=== PATIENT | female | born 1940 | race Caucasian/White ===

== ENCOUNTER 2017-05-14 11:21 | Inpatient (IN) | payer MEDICARE ==
[2017-05-14 12:00] LABS: #Lymphocytes 0.9 thou/uL (1.20-3.40); #Monocytes 0.5 thou/uL (0.11-0.59); #Neutrophils 10.9 thou/uL (1.40-6.50); %Basophils 0.3 % (0.0-1.0); %Eosinophils 0.1 % (0.0-10.0); %Lymphocytes 7.5 % (21.0-51.0); %Monocytes 3.6 % (0.0-10.0); Hematocrit 51.2 % (36.0-47.0); Mean Platelet Volume 9.3 fL (7.4-10.4); Red Blood Cell (RBC) Count 5.66 mill/uL (4.20-5.40); White Blood Cell (WBC) Count 12.4 thou/uL (4.8-10.8)
[2017-05-14 12:06] LABS: PTT 32.8 SEC (22.9-36.1)
[2017-05-14] MEDS ORDERED: Pantoprazole 40 MG VIAL ONE (12:10)
[2017-05-14] MEDS ORDERED: Ondansetron HCl/PF 4 MG/2 ML Vial ONE (12:10)
[2017-05-14 12:21] LABS: ALT (SGPT) 41 U/L (8-55); AST (SGOT) 37 U/L (5-34); Alkaline Phosphatase 126 U/L (40-150); Anion Gap 13 mmol/L (10-20); BUN (Urea Nitrogen) 14 mg/dL (9.8-20.1); Bilirubin, Total 0.5 mg/dL (0.2-1.2); Calc. Creatinine Clearance 0 mL/min (70-130); Calcium 10.5 mg/dL (7.8-10.44); Carbon Dioxide 26 mmol/L (23-31); Chloride 105 mmol/L (98-107); Estimated GFR-MDRD 79; Globulin 3.7 g/dL (2.4-3.5)
[2017-05-14] MEDS ORDERED: metroNIDAZOLE 500 MG/100 ML BAG ONE (13:48)
[2017-05-14] MEDS ORDERED: Iopamidol 370 76% 50 ML VIAL FS ONE (13:51)
[2017-05-14] MEDS ORDERED: Iopamidol 370 76% 100 ML VIAL ONE (13:51)
--- NOTE | 2017-05-14 14:01 | CT ---
CT ABDOMEN AND PELVIS WITH IV CONTRAST: DATE: 05/14/17. History Bloody diarrhea for a 12-hour period of time. Cramping abdominal pain. COMPARISON: None available. FINDINGS: There is a moderate-sized hiatal hernia. There is minimal bibasilar atelectasis. Post-cholecystectomy changes are noted. Calcified granuloma is seen in the spleen. The liver, pancreas, and bilateral adrenal glands as wel l as partially seen urinary bladder demonstrate a normal CT appearance. Subcentimeter too small to characterize hypodense lesions are seen in each kidney with minimal areas of scarring in each kidney. There is evidence of colonic diverticulosis. There is thickening involving the descending colon ext ending from the splenic flexure to the sigmoid colon. There is minimal pericolonic inflammatory dina nge seen. While multiple diverticula are seen along this course, this is a greater segment of invol vement than typically expected for diverticulitis and findings are more likely related to colitis se condary to infectious or inflammatory etiologies. No free fluid or fluid collection is seen in the abdomen or pelvis. There is no lymphadenopathy. Vascular calcification is seen in the abdominal aorta and iliac arteries. IMPRESSION: 1. Long segment of thickening involving the descending colon which involves the splenic flexure inc luding most distal aspect of the transverse colon and extends distally to the level of the sigmoid c olon. Multiple colonic diverticula are seen along this segment with pericolonic inflammatory change s. The degree of colonic involvement is more suggestive of colitis related to either an infectious or inflammatory etiology. Ischemic colitis is a possibility, but there does appear to be enhancemen t of the visualized APRIL. 2. Moderate-sized hiatal hernia. 3. Areas of cortical scarring and tiny subcentimeter too small to characterize hypodense lesions in each kidney. 4. Atherosclerotic vascular calcifications. 5. The above findings were discussed with Dr. Parra in the emergency department on 05/14/17 at 1335 hours. CODE CR POS: [facility]
[2017-05-14] MEDS ORDERED: Acetaminophen 325 MG TAB PO PRN (14:14)
[2017-05-14 15:17] VITALS: BMI 33.1
[2017-05-14 15:47] LABS: Hematocrit 46.2 % (36.0-47.0)
[2017-05-14] MEDS: Sodium Chloride 0.9% 1,000 ML IV SCH (16:20)
--- NOTE | 2017-05-14 16:20 | HP ---
PRIMARY CARE PHYSICIAN: Dr. Linwood Belle. CHIEF COMPLAINT: Rectal bleeding. HISTORY OF PRESENT ILLNESS: Ms. Gamble is a pleasant 76-year-old lady who was seen at [facility] on 05/14/2017. She reports that she had bidirectional scopes in the past, a few years ago as well as a few months a go for iron deficiency anemia. She was told that she has diverticular disease as well as hiatal her escobar. She denies eating out recently. Last night, she went to use the wash room and found that she had a black stool. She subsequently had more bowel movements, and she had bright red blood. She also rep orts abdominal discomfort over the right lower quadrant. She describes it as a cramping kind of sen sation, 10/10 at its worst, on and off, no known aggravating or relieving factors, not accompanied b y chest pain, nausea or vomiting. She came to the emergency room because of ongoing rectal bleeding . REVIEW OF SYSTEMS: The following complete review of systems was negative, unless otherwise mentione d in the HPI or below: CONSTITUTIONAL: Weight loss or gain, sense of well-being, ability to conduct usual activities, exer cise tolerance. SKIN/BREAST: Rash, itching, changes in hair growth or loss, nail changes, breast lumps, tenderness, swelling, nipple discharge. EYES: Vision, double vision, tearing, blind spots, pain. ENT/MOUTH: Headaches (location, time of onset, duration, precipitating factors), vertigo, lighthead edness, injury. Vision, double vision, tearing, blind spots, pain, nose bleeding, colds, obstruction , discharge, dental difficulties, gingival bleeding, dentures, neck stiffness, pain, tenderness, mas ses in thyroid or other areas. CARDIOVASCULAR: Precordial pain, substernal distress, palpitations, syncope, dyspnea on exertion, o rthopnea, nocturnal paroxysmal dyspnea, edema, cyanosis, hypertension, heart murmurs, varicosities, phlebitis, claudication. RESPIRATORY: Pain, shortness of breath, wheezing, stridor, cough, hemoptysis, fever or night sweats GASTROINTESTINAL: Poor appetite, dysphagia, indigestion, abdominal pain, heartburn, eructation, leonardo sea, vomiting, hematemesis, jaundice, constipation, or diarrhea, abnormal stools (humphrey-colored, bebo y, bloody, greasy, foul smelling), flatulence, hemorrhoids, recent changes in bowel habits. GENITOURINARY: Urgency, frequency, dysuria, nocturia, hematuria, polyuria, oliguria, unusual (or ch dilan in) color of urine, stones, hesitancy, change in size of stream, dribbling, acute retention or incontinence, libido, potency. MUSCULOSKELETAL: Pain, swelling, redness or heat of muscles or joints, limitation, of motion, muscu lar weakness, atrophy, cramps. NEUROLOGIC/PSYCHIATRIC: Convulsions, paralyses, tremor, incoordination, paresthesias, difficulties with memory of speech, sensory or motor disturbances, or muscular coordination (ataxia, tremor), emo tional problems, anxiety, depression, previous psychiatric care, unusual perceptions, hallucinations . ALLERGY/IMMUNOLOGIC: Skin rash, anemia, bleeding tendency, polydipsia, polyuria, intolerance to hea t or cold. PAST MEDICAL HISTORY: Significant for anemia and diverticulitis. PAST SURGICAL HISTORY: Significant for cholecystectomy and hysterectomy. SOCIAL HISTORY: The patient denies tobacco use, alcohol use or recreational drug use. CODE STATUS: I discussed Ms. Gamble's code status. She is FULL CODE. FAMILY HISTORY: Significant for myocardial infarction in 2 of her siblings. ALLERGIES: CODEINE. CURRENT MEDICATIONS: Tylenol p.r.n. PHYSICAL EXAMINATION: GENERAL: Ms. Gamble is awake and alert, not in acute distress. VITAL SIGNS: She is afebrile. Blood pressure is 129/70. Pulse is 79. She is breathing at rate of 18 and saturating 97% on room air. EYES: No scleral icterus. No conjunctival pallor. ENT: Moist mucosal membranes, no oropharyngeal erythema or exudates. NECK: Supple, nontender, normal range of movement, trachea is midline. RESPIRATORY: Accessory muscles of breathing are not active. Chest wall movements are symmetric elaine aterally. LUNGS: Clear to auscultation without wheeze, rhonchi or crepitations. CARDIOVASCULAR: S1 and S2 are heard, regular. LUNGS: Peripheral pulses palpable. No carotid bruit, no pericardial rub. ABDOMEN: Soft, mild right lower quadrant tenderness, no guarding or rigidity, bowel sounds heard, n o hepatomegaly, no splenomegaly. NEUROLOGIC: Cranial nerves II-XII are intact. Deep tendon reflexes are 2+. MUSCULOSKELETAL: Power is 5/5 in all 4 extremities. Normal range of movement at all major extremit y joints. SKIN: No rashes or subcutaneous nodules. LYMPHATIC: No cervical lymphadenopathy. PSYCHIATRIC: Normal mood, normal affect, patient is oriented to person, place and time. LABORATORY DATA: Ms. Gamble's labs and investigations were reviewed. She had a CT scan of the abdo men and pelvis, which showed moderate sized hiatal hernia, minimal basilar atelectases, postcholecys tectomy changes. She also has a long segment of thickening involving the descending colon with mult iple colonic diverticula and pericolonic inflammatory changes. She also has tiny too small to emil cterize hypodense lesions in each kidney and atherosclerotic vascular calcifications. Laboratory in vestigations show leukocytosis with 12,400 white cells, of which 88.5% are neutrophils, elevated hem oglobin of 16.3, last known hemoglobin 8.8 on 10/21/2012, normal platelet count, INR 1.0, normal rosita ctrolytes, normal blood urea nitrogen, normal creatinine, elevated calcium of 10.5, normal total elaine irubin, elevated AST of 37, normal ALT, normal alkaline phosphatase and normal albumin. ASSESSMENT AND PLAN: Ms. Gamble is a pleasant 76-year-old lady, who was seen at [facility]. Her problem list includes: 1. Gastrointestinal bleed: She is presenting with features of both upper and lower GI bleed. She will be admitted to the hospital for further monitoring. Her hemoglobin will be rechecked. We will start her on PPI drip. Gastroenterology service is being consulted. We will start clear fluid t now and keep patient n.p.o. after midnight for possible scope studies. 2. Abdominal pain: This appears to have improved. I will start p.r.n. acetaminophen. 3. History of anemia: Patient has a history of anemia of iron deficiency. Her hemoglobin is actua lly high today, it appears she may be hemoconcentrated. I will recheck hemoglobin level. 4. Leukocytosis: Given her diarrhea, concern for infectious etiology. We will check stool studies to rule out infection and Clostridium difficile colitis. She has already been started on empiric c iprofloxacin and metronidazole, we will continue the same for now. 5. Hypercalcemia: Mild, we will recheck. 6. Elevated AST: Etiology is unclear. We will recheck LFTs, will also check a CK level. Many thanks for allowing me to participate in your patient's care. Please feel free to contact me w ith any questions or concerns. LEVEL OF RISK: Moderate. LEVEL OF COMPLEXITY: Moderate.
[2017-05-14] MEDS: Pantoprazole 80 MG, Admixture Fee 1 EACH in Sodium Chloride 0.9% 100 ML IVP SCH (18:29)
[2017-05-14] MEDS: metroNIDAZOLE 500 MG in Premix Bag 1 BAG IVPB SCH (22:32)
[2017-05-15 00:08] LABS: Hematocrit 44.1 % (36.0-47.0)
[2017-05-15 04:57] LABS: #Lymphocytes 1.2 thou/uL (1.20-3.40); #Monocytes 0.9 thou/uL (0.11-0.59); #Neutrophils 10.9 thou/uL (1.40-6.50); %Basophils 0.2 % (0.0-1.0); %Eosinophils 0.3 % (0.0-10.0); %Lymphocytes 9.2 % (21.0-51.0); %Monocytes 6.9 % (0.0-10.0); Hematocrit 45.1 % (36.0-47.0); Mean Platelet Volume 9.8 fL (7.4-10.4); Red Blood Cell (RBC) Count 4.99 mill/uL (4.20-5.40); White Blood Cell (WBC) Count 13.1 thou/uL (4.8-10.8)
[2017-05-15 05:12] LABS: Anion Gap 11 mmol/L (10-20); BUN (Urea Nitrogen) 9 mg/dL (9.8-20.1); Calc. Creatinine Clearance 101 mL/min (70-130); Calcium 9.2 mg/dL (7.8-10.44); Carbon Dioxide 24 mmol/L (23-31); Chloride 106 mmol/L (98-107); Estimated GFR-MDRD 89
[2017-05-15] MEDS: Pantoprazole 80 MG, Admixture Fee 1 EACH in Sodium Chloride 0.9% 100 ML IVP SCH ×2 (06:20→23:22)
[2017-05-15] MEDS: metroNIDAZOLE 500 MG in Premix Bag 1 BAG IVPB SCH ×3 (06:32→21:39)
[2017-05-15] MEDS: Sodium Chloride 0.9% 1,000 ML IV SCH ×2 (08:16→21:43)
--- NOTE | 2017-05-15 09:10 | CON ---
DATE OF CONSULTATION: 05/14/2017 REFERRING PHYSICIAN: Dr. Clement Mackey, [facility]. REASON FOR CONSULTATION: GI bleeding. HISTORY OF PRESENT ILLNESS: Ms. Cristal Gamble is a very pleasant 76-year-old female seen in the ER today because of abdominal cramping and hematochezia. Apparently, the symptoms started at 1 1:00 p.m. last night and the pain was cramping more over the right lower quadrant. The pain was act ually severe as per the patient. She feels nausea, but no vomiting. She started passing dark blood that subsequently turned to bright red blood per rectum. Apparently, she has 5 or 6 bloody stools. She came to the ER because of the above reason. The patient has no history of fever. There is no history of recent antibiotic intake. There is no recent travel outside the country. The patient h ad no similar symptoms in the past. The patient has history of anemia since 2012. She was found to be some anemia with a low blood count of 6.1 in 2012. She was hospitalized at the time of blood tr ansfusion. She has seen Dr. Donell Reese at that time. She had a colonoscopy and EGD by Dr. Reese. A s per the operative report, she had esophageal erosions and esophagitis and also hiatus hernia. The colonoscopy showed left-sided diverticulosis and also a small sessile sigmoid polyp. The patient w as placed on iron supplement. She did very well. She does take omeprazole for acid reflux. The zoë conway again developed anemia few months ago and blood count dropped to 8. She has no history of any hematochezia or melena. She has seen Dr. Reese earlier this year and had an EGD done. She was told to have esophageal hiatus hernia. She also had some of the tests done which she really not very cl ear about what the tests are. The patient came to the ER today. Her hemoglobin was surprisingly ve ry high. The hemoglobin in the ER was 16.3, hematocrit 51.2. A repeat done at 4:00 today showed he moglobin dropping to 14.9, hematocrit 46.2. She has no more bloody stools since admitted in the [facility] or. The patient's bowel movements are fairly regular. Another relevant history that she had a caps ule study in 2012 because of anemia and the capsule study also was found to be negative. She has no other relevant symptoms. ALLERGIES: None. SOCIAL HISTORY: The patient is . She does not smoke or drink alcohol. MEDICAL ILLNESSES: 1. Recurrent anemia. 2. Hiatus hernia. 3. Esophagitis. 4. Diverticular disease. 5. Colon polyp. 6. Status post hysterectomy. 7. Status post cholecystectomy. 8. She has seen Dr. Cristina in the past and had some procedures for her varicose veins. FAMILY HISTORY: Mother had polycythemia vera rubra and turning into leukemia subsequently. MEDICATIONS: List reviewed. 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 Respiratory system: No history of chronic cough, hemoptysis, dyspnea. Cardiovascular system: No c hest pain, no palpitation, no exertional dyspnea, orthopnea or PND. Gastrointestinal: As in histor y of present illness. Genitourinary: No dysuria, hematuria or frequency of urination. Musculoskel etal: Not known. Endocrine: Not known. Hematological: Not known. Neuro/Psychiatric: Not known . PHYSICAL EXAMINATION: GENERAL: Reveals a very pleasant female. She is appears very comfortable. She has inter mittent crampy pain; at times the pain is severe. VITAL SIGNS: Stable, afebrile. Pulse is 76, blood pressure 152/70. HEENT: Conjunctivae clear. NECK: Supple. No adenitis or thyromegaly noted. CARDIOVASCULAR SYSTEM: First and second heart sounds normal. LUNGS: Clear to auscultation. ABDOMEN: Soft to palpate. Abdomen is nondistended. Although, she complains of pain, palpating the abdominal various quadrants does not really show any . There is no rebound or guarding. [place] el sounds are normal. EXTREMITIES: No edema. LABORATORY DATA: Shows CBC: WBC 12,400, hemoglobin 16.2 dropping to 14.9, hematocrit 51.8 dropping to 46.2, MCV 90.5, platelet count 267,000, polymorphs 88, lymphocytes 7. Serum chemistries and ser um lytes are normal. BUN is 14, creatinine is 0.72, glucose 123, calcium 10.5, bilirubin 0.5, AST 3 7, ALT 41, alkaline phosphatase 126. Abdominal CAT scan shows hiatus hernia, colitis involving the sigmoid colon and transverse colon. She also has had atherosclerotic vascular calcification. CLINICAL IMPRESSION: 1. A 76-year-old female with abdominal cramping, hematochezia. The patient most likely h as ischemic colitis. I do not feel that she has an infectious colitis. The clinical picture is yvonne y suggestive of ischemic colitis. 2. History of recurrent anemia. Blood count is stable at the present time. 3. Hiatus hernia. 4. Erosive esophagitis. 5. Colon polyp. 6. Sigmoid diverticulosis. RECOMMENDATIONS: 1. Clear liquid diet. 2. Continue antibiotics. 3. Follow up H and H. I really see no reason in doing colonoscopy at the present time as she had a colonoscopy four years ago and my feeling is that she has ischemic colitis. Doing colonoscopy and documentation of ischemic colitis is not going to make the treatment any different. However, if her blood count drops down or she continues to bleed, may consider a colonoscopy at that time.
[2017-05-15] MEDS ORDERED: Morphine 2 MG/ML SYRINGE SLOW IVP PRN (09:15)
[2017-05-15] MEDS ORDERED: Dicyclomine 10 MG CAP PO PRN (09:15)
--- NOTE | 2017-05-15 11:43 | PDOC.PN ---
- Subjective Encounter Start Date: 05/15/17 Encounter Start Time: 08:20 Pt seen for followup re: colitis. Denies chest pain. Still has abdominal pain. Still has bloody stools. No nausea, vomiting. - Objective MAR Reviewed: Yes Vital Signs & Weight: Vital Signs (12 hours) Temp Pulse Resp BP Pulse Ox 05/15/17 11:13 98.0 F 76 18 152/77 H 99 Result Diagrams: 05/15/17 04:06 05/15/17 04:06 EKG Reviewed by me: Yes (Tele: NSR) Phys Exam - Physical Examination Constitutional: NAD HEENT: moist MMs, sclera anicteric, oral pharynx no lesions Neck: supple Respiratory: no wheezing, no rales, no rhonchi, clear to auscultation bilateral Cardiovascular: RRR, no rub Gastrointestinal: soft, no distention, positive bowel sounds Mild RLQ tenderness, no guarding or rigidity Musculoskeletal: pulses present Neurological: moves all 4 limbs Lymphatic: no nodes Psychiatric: normal affect, A&O x 3 Skin: no rash, normal turgor, cap refill <2 seconds Dx/Plan (1) Colitis Code(s): K52.9 - NONINFECTIVE GASTROENTERITIS AND COLITIS, UNSPECIFIED Status : Acute (2) Abdominal pain Code(s): R10.9 - UNSPECIFIED ABDOMINAL PAIN Status: Acute (3) Bloody diarrhea Code(s): R19.7 - DIARRHEA, UNSPECIFIED Status: Acute (4) Anemia Code(s): D64.9 - ANEMIA, UNSPECIFIED Status: Chronic (5) Hypocalcemia Code(s): E83.51 - HYPOCALCEMIA Status: Resolved - Plan continue antibiotics, out of bed/ambulate, DVT proph w/SCDs * . Ischemic vs. infectious colitis, continue cipro, flagyl. Start clear liquid diet, advance as tolerated. Hgb initially dropped, now stable. Given ongoing abdo pain, ongoing bleeding and colitis, estimated length of stay is greater than two nights. Will change pt's status to in-patient. Review of Systems - Review of Systems Constitutional: negative: Fever, Chills, Sweats, Weakness, Malaise Respiratory: negative: Cough, Dry, Shortness of Breath, Hemoptysis, SOB with Excertion, Pleuritic Pain, Sputum, Wheezing Cardiovascular: negative: Chest Pain, Palpitations, Orthopnea, Paroxysmal Noc. Dyspnea, Edema, Light Headedness Gastrointestinal: negative: Nausea, Vomiting, Abdominal Pain, Diarrhea, Constipation, Melena, Hematochezia Genitourinary: negative: Dysuria, Frequency, Incontinence, Hematuria, Retention - Medications/Allergies Allergies/Adverse Reactions: Allergies Allergy/AdvReac Type Severity Reaction Status Date / Time codeine Allergy Severe Verified 05/14/17 16:21 Medications: Current Medications Acetaminophen (Tylenol) 650 mg PO Q4H PRN PRN Reason: Headache/Fever or Pain Last Admin: 05/14/17 18:25 Dose: 650 mg Dicyclomine HCl (Bentyl) 10 mg PO QID PRN PRN Reason: abdominal pain Last Admin: 05/15/17 10:26 Dose: 10 mg Sodium Chloride (Normal Saline 0.9%) 1,000 mls @ 70 mls/hr IV .[id number] ANDREA Last Admin: 05/15/17 08:16 Dose: Not Given Pantoprazole Sodium 80 mg/Miscellaneous Medication 1 each/ Sodium Chloride 100 mls @ 10 mls/hr IVP INF [facility] Last Admin: 05/15/17 06:20 Dose: 100 mls Ciprofloxacin/Dextrose 400 mg/ (Device) 200 mls @ 200 mls/hr IVPB 0400,1600 ANDREA Last Admin: 05/15/17 04:13 Dose: 200 mls Metronidazole 500 mg/ Device 100 mls @ 100 mls/hr IVPB Q8HR ANDREA Last Admin: 05/15/17 06:32 Dose: 100 mls Morphine Sulfate (Morphine Sulfate) 2 mg SLOW IVP Q4H PRN PRN Reason: Pain
[2017-05-15 12:45] LABS: ALT (SGPT) 35 U/L (8-55); AST (SGOT) 25 U/L (5-34); Alkaline Phosphatase 102 U/L (40-150); Bilirubin, Direct 0.3 mg/dL (0.1-0.3); Bilirubin, Total 0.7 mg/dL (0.2-1.2); Protein, Total 6.1 g/dL (6.0-8.3)
--- NOTE | 2017-05-15 17:04 | PRG ---
HOSPITAL VISIT NOTE DATE OF SERVICE: 05/15/2017 SUBJECTIVE: This is a 76-year-old female admitted with abdominal cramping and hematochezi a. The CAT scan shows findings of colitis. The patient's symptoms are very suggestive of ischemic colitis. The patient is still having abdominal cramping off and on. She had no nausea or vomiting, no fever. She has had 3 stools today. The first 2 stools had some blood in the stool, but the las t one did not have any blood in the stool. Her blood count did drop down slowly from 16.3 to 14.2. One of the last hemoglobin is stable at 14.2. OBJECTIVE: GENERAL: Appears comfortable. VITAL SIGNS: She is afebrile. Pulse is 76 and blood pressure 152/77. CARDIOVASCULAR: First and second heart sounds are normal. LUNGS: Clear to auscultation. ABDOMEN: Soft to palpate. No organomegaly. Abdomen is mildly tender across the lower abdomen. Ov erall, the exam is very benign. LABORATORY DATA: The most recent laboratory data; hemoglobin 14.2 and hematocrit 45.1. RECOMMENDATIONS: 1. Continue clear liquid diet and advance diet to full liquid diet tomorrow. 2. Continue antibiotics.
[2017-05-16] MEDS: Sodium Chloride 0.9% 1,000 ML IV SCH ×3 (00:32→19:55)
[2017-05-16] MEDS ORDERED: Ondansetron HCl/PF 4 MG/2 ML Vial IVP PRN (04:13)
[2017-05-16] MEDS ORDERED: Ondansetron HCl/PF 4 MG/2 ML Vial IVP SCH (04:15)
[2017-05-16 06:15] LABS: #Eosinphils 0.1 thou/uL (0.0-0.7); #Lymphocytes 1.8 thou/uL (1.20-3.40); #Neutrophils 8.7 thou/uL (1.40-6.50); %Basophils 0.4 % (0.0-1.0); %Eosinophils 1.2 % (0.0-10.0); %Lymphocytes 15.4 % (21.0-51.0); %Monocytes 8.8 % (0.0-10.0); Hematocrit 38.4 % (36.0-47.0); Mean Platelet Volume 9.4 fL (7.4-10.4); Red Blood Cell (RBC) Count 4.24 mill/uL (4.20-5.40); White Blood Cell (WBC) Count 11.7 thou/uL (4.8-10.8)
[2017-05-16] MEDS: metroNIDAZOLE 500 MG in Premix Bag 1 BAG IVPB SCH (06:22)
[2017-05-16 06:30] LABS: Anion Gap 8 mmol/L (10-20); BUN (Urea Nitrogen) 6 mg/dL (9.8-20.1); Calc. Creatinine Clearance 102 mL/min (70-130); Calcium 8.6 mg/dL (7.8-10.44); Carbon Dioxide 26 mmol/L (23-31); Chloride 107 mmol/L (98-107); Estimated GFR-MDRD 90
--- NOTE | 2017-05-16 11:32 | PDOC.PN ---
- Subjective Encounter Start Date: 05/16/17 Encounter Start Time: 10:00 Pt seen for followup re: colitis. Denies chest pain, vomiting or fevers. No blood in stool. Abdo pain better. - Objective MAR Reviewed: Yes Vital Signs & Weight: Vital Signs (12 hours) Temp Pulse Resp BP Pulse Ox 05/16/17 08:13 98.2 F 75 16 116/73 95 05/16/17 08:00 98.2 F 75 16 97 05/16/17 05:37 98.9 F 73 16 109/67 95 05/16/17 00:29 99.3 F 76 16 106/64 91 L I&O: 05/15/17 05/16/17 05/17/17 06:59 06:59 06:59 Intake Total 1960 360 Balance 1960 360 Result Diagrams: 05/16/17 06:05 05/16/17 06:05 Phys Exam - Physical Examination Constitutional: NAD HEENT: moist MMs Neck: supple Respiratory: clear to auscultation bilateral Cardiovascular: RRR, no rub Gastrointestinal: soft, positive bowel sounds Mild RLQ tenderness Musculoskeletal: pulses present Neurological: moves all 4 limbs Psychiatric: normal affect, A&O x 3 Skin: no rash Dx/Plan (1) Colitis Code(s): K52.9 - NONINFECTIVE GASTROENTERITIS AND COLITIS, UNSPECIFIED Status : Acute (2) Abdominal pain Code(s): R10.9 - UNSPECIFIED ABDOMINAL PAIN Status: Acute (3) Bloody diarrhea Code(s): R19.7 - DIARRHEA, UNSPECIFIED Status: Acute (4) Anemia Code(s): D64.9 - ANEMIA, UNSPECIFIED Status: Chronic (5) Hypocalcemia Code(s): E83.51 - HYPOCALCEMIA Status: Resolved - Plan * . Continue antibiotics. Advance diet as tolerated. Likely home 1-2 days. Review of Systems - Review of Systems Constitutional: negative: Fever, Chills, Sweats, Weakness, Malaise Cardiovascular: negative: Chest Pain, Palpitations, Orthopnea, Paroxysmal Noc. Dyspnea, Edema, Light Headedness Gastrointestinal: Abdominal Pain. negative: Nausea, Vomiting, Diarrhea, Constipation, Melena, Hematochezia - Medications/Allergies Allergies/Adverse Reactions: Allergies Allergy/AdvReac Type Severity Reaction Status Date / Time codeine Allergy Severe Verified 05/14/17 16:21 Medications: Current Medications Acetaminophen (Tylenol) 650 mg PO Q4H PRN PRN Reason: Headache/Fever or Pain Last Admin: 05/14/17 18:25 Dose: 650 mg Dicyclomine HCl (Bentyl) 10 mg PO QID PRN PRN Reason: abdominal pain Last Admin: 05/15/17 10:26 Dose: 10 mg Sodium Chloride (Normal Saline 0.9%) 1,000 mls @ 70 mls/hr IV .[id number] [facility] Last Admin: 05/16/17 00:32 Dose: 1,000 mls Pantoprazole Sodium 80 mg/Miscellaneous Medication 1 each/ Sodium Chloride 100 mls @ 10 mls/hr IVP INF [facility] Last Admin: 05/15/17 23:22 Dose: 100 mls Ciprofloxacin/Dextrose 400 mg/ (Device) 200 mls @ 200 mls/hr IVPB 0400,1600 [facility] Last Admin: 05/16/17 03:58 Dose: 200 mls Metronidazole 500 mg/ Device 100 mls @ 100 mls/hr IVPB Q8HR [facility] Last Admin: 05/16/17 06:22 Dose: 100 mls Morphine Sulfate (Morphine Sulfate) 2 mg SLOW IVP Q4H PRN PRN Reason: Pain Ondansetron HCl (Zofran) 4 mg IVP Q4H PRN PRN Reason: Nausea/Vomiting
[2017-05-16] MEDS ORDERED: traMADol HCl 50 MG TAB PO PRN (11:34)
[2017-05-16] MEDS: metroNIDAZOLE 500 MG TAB PO SCH ×2 (14:31→19:50)
[2017-05-16] MEDS: Pantoprazole 80 MG, Admixture Fee 1 EACH in Sodium Chloride 0.9% 100 ML IVP SCH (14:31)
--- NOTE | 2017-05-16 18:21 | PRG ---
DATE OF SERVICE: 05/16/2017 HISTORY OF PRESENT ILLNESS: This is a 76-year-old female admitted to the hospital with ab dominal pain and hematochezia. An abdominal CAT scan done, showed evidence of colitis. It appears that she has most likely ischemic colitis. The patient has had a colonoscopy not too long ago and i t was felt she does not need repeat colonoscopy. She was on clear liquid diet yesterday and she is actually doing better. Abdominal pain is getting better and better. She appears comfortable. She has had no hematochezia anymore. PHYSICAL EXAMINATION: GENERAL: Appears comfortable. VITAL SIGNS: Stable. Pulse is 75, blood pressure 116/73. HEENT: Conjunctivae clear. CARDIOVASCULAR SYSTEM: First and second heart sounds normal. LUNGS: Clear to auscultation. ABDOMEN: Soft to palpate. Abdomen is mildly tender across the lower abdomen. There is no rebound or guarding. EXTREMITIES: Reveal no edema. LABORATORY DATA: From today WBC 11,700, hemoglobin 12.4, hematocrit 38.4. Chemistry panel: Sodium 138, potassium 3.4, chloride 107, bicarbonate 26, BUN is 6, creatinine 0.64, glucose 129. CLINICAL IMPRESSION: Resolving ischemic colitis. Her blood count is stable. RECOMMENDATIONS: Advance diet to full liquid diet and if she tolerates well, advance to a mechanica l soft diet later on. If she does well, consider discharge tomorrow.
[2017-05-16] MEDS: Ciprofloxacin 500 MG TAB PO SCH (19:50)
[2017-05-17] MEDS: Ciprofloxacin 500 MG TAB PO SCH (05:26)
[2017-05-17 05:58] LABS: #Basophils 0.1 thou/uL (0.0-0.2); #Eosinphils 0.3 thou/uL (0.0-0.7); #Lymphocytes 2.6 thou/uL (1.20-3.40); #Monocytes 0.7 thou/uL (0.11-0.59); #Neutrophils 6.1 thou/uL (1.40-6.50); %Basophils 0.9 % (0.0-1.0); %Eosinophils 3.1 % (0.0-10.0); %Lymphocytes 26.4 % (21.0-51.0); %Monocytes 6.7 % (0.0-10.0); Hematocrit 40.3 % (36.0-47.0); Mean Platelet Volume 9.3 fL (7.4-10.4); Red Blood Cell (RBC) Count 4.41 mill/uL (4.20-5.40); White Blood Cell (WBC) Count 9.8 thou/uL (4.8-10.8)
[2017-05-17 06:26] LABS: Anion Gap 10 mmol/L (10-20); BUN (Urea Nitrogen) 6 mg/dL (9.8-20.1); Calc. Creatinine Clearance 102 mL/min (70-130); Calcium 8.8 mg/dL (7.8-10.44); Carbon Dioxide 24 mmol/L (23-31); Chloride 109 mmol/L (98-107); Estimated GFR-MDRD 90
[2017-05-17] MEDS: metroNIDAZOLE 500 MG TAB PO SCH (08:01)
[2017-05-17 13:29] VITALS: BP 134/78; TEMP 97.6
--- NOTE | 2017-05-17 20:14 | PRG ---
DATE OF SERVICE: 05/17/2017 HOSPITALIST NOTE HISTORY OF PRESENT ILLNESS: This is a 76-year-old female admitted with abdominal cramping , hematochezia, and diarrhea. The CAT scan showed evidence of colitis. It was felt that patient jeff reno has ischemic colitis. She was on a clear liquid diet until yesterday and diet was advanced to full liquid diet. This morning, she had a regular diet. She has no abdominal pain. No hematochezi a. Overall, she is feeling better. PHYSICAL EXAMINATION: VITAL SIGNS: Afebrile, pulse 56, blood pressure 134/78. CARDIOVASCULAR SYSTEM: Within normal limits. LUNGS: Within normal limits. ABDOMEN: Soft to palpate. Abdomen is nontender. No organomegaly or masses. RECOMMENDATION: The patient can be discharged home on p.o. antibiotics for the next 3 days. She wi ll return to see Dr. Belle for a followup visit.
--- NOTE | 2017-05-18 00:29 | DIS ---
DATE OF ADMISSION: 05/14/2017 DATE OF DISCHARGE: 05/17/2017 PRIMARY CARE PHYSICIAN: Dr. Linwood Belle. DISCHARGE DIAGNOSIS: Colitis, ischemic versus infectious. CONDITION OF PATIENT AT THE TIME OF DISCHARGE: Stable. I assessed Ms. aGmble on the day of dischar ge. She denies any chest pain or shortness of breath. She denies any bloody diarrhea. Vital signs are stable. S1 and S2 are heard, regular. Lungs are clear to auscultation bilaterally. CONSULTATION DURING THIS HOSPITALIZATION: Gastroenterology, Dr. Billingsley. DISCHARGE MEDICATIONS: Ciprofloxacin 500 mg 2 times a day for 4 more days, metronidazole 500 mg 3 t imes a day for 4 more days. HOSPITAL COURSE: Ms. Gamble is a pleasant 76-year-old lady, who was admitted to [facility] on 05/14/2017, for bloody diarrhea. Stool Clostridium difficile screen was negative. Stool cultures were negative. Stool occult blood was positive. She was seen by Gastroenterology Service. She was also started on antibiotics at the time of admission for possible infectious colit is. Gastroenterology Service impression was that she had ischemic colitis. She improved clinically with supportive measures. She is being discharged home in a stable condition to finish one week co urse of antibiotics, total. She had a CT scan at the time of admission, which was suggestive of colitis. She also had tiny subc entimeter too small to characterize hypodense lesions in each kidney. She is advised to follow up w ith her primary care physician for any possible workup if needed. Many thanks for allowing me to participate in your patient's care. Please feel free to contact me w ith any questions or concerns. DISCHARGE DESTINATION: Home. TOTAL AMOUNT OF TIME SPENT COORDINATING THIS DISCHARGE: Thirty-eight minutes.
== END 2017-05-17 16:54 | disposition home or self-care (01) | DRG 394 ==
LOC: ERS 11:21 → 2SW 13:56 → OBSVTOIN 05-15 09:06 → T4-B 05-15 11:09
PROVIDERS: ADMIT Internal Medicine; ATTEND Internal Medicine
DX: K55.9 Vascular disorder of intestine, unspecified (principal); K22.10 Ulcer of esophagus without bleeding; D64.9 Anemia, unspecified; E83.52 Hypercalcemia; K57.30 Diverticulosis of large intestine without perforation or abscess without bleeding; K63.5 Polyp of colon; I10 Essential (primary) hypertension; K44.9 Diaphragmatic hernia without obstruction or gangrene; D72.829 Elevated white blood cell count, unspecified; Z88.5 Allergy status to narcotic agent; Z80.6 Family history of leukemia
CPT/HCPCS: 36415; 74177; 80048; 80053; 80076; 82274; 83630; 85025; 85610; 85730; 86850; 86900; 86901; 87015; 87045; 87046; 87324; 87328; 87329; 87449; 87899; 96365; 96375; C9113; J0744; J2405; J7050

== ENCOUNTER 2017-08-04 13:12 | Emergency (ER) | payer MEDICARE ==
[2017-08-04] MEDS ORDERED: Dexamethasone 10 MG/ML VIAL ONE (14:09)
[2017-08-04] MEDS ORDERED: Ondansetron HCl/PF 4 MG/2 ML Vial ONE (14:15)
[2017-08-04 14:38] LABS: #Lymphocytes 1.3 thou/uL (1.20-3.40); #Monocytes 0.6 thou/uL (0.11-0.59); #Neutrophils 6.6 thou/uL (1.40-6.50); %Eosinophils 0.2 % (0.0-10.0); %Lymphocytes 15.2 % (21.0-51.0); %Monocytes 7.4 % (0.0-10.0); %Neutrophils 77.2 % (42.0-75.0); Hemoglobin 13.8 g/dL (12.0-16.0); Mean Corpuscular HGB CONC 32.1 g/dL (32.0-36.0); Mean Corpuscular Hemoglobin 29.4 pg (27.0-31.0); Mean Corpuscular Volume 91.7 fl (81.0-99.0); Mean Platelet Volume 9.7 fL (7.4-10.4); Platelet Count 190 thou/uL (130-400); RBC Distribution Width 12.1 % (11.5-14.5); Red Blood Cell (RBC) Count 4.68 mill/uL (4.20-5.40); White Blood Cell (WBC) Count 8.6 thou/uL (4.8-10.8)
[2017-08-04 15:00] LABS: ALT (SGPT) 19 U/L (8-55); AST (SGOT) 12 U/L (5-34); Albumin 3.6 g/dL (3.4-4.8); Alkaline Phosphatase 119 U/L (40-150); Anion Gap 14 mmol/L (10-20); BUN (Urea Nitrogen) 11 mg/dL (9.8-20.1); Bilirubin, Total 0.5 mg/dL (0.2-1.2); Calc. Creatinine Clearance 0 mL/min (70-130); Calcium 9.7 mg/dL (7.8-10.44); Carbon Dioxide 24 mmol/L (23-31); Chloride 104 mmol/L (98-107); Estimated GFR-MDRD 81; Globulin 3.2 g/dL (2.4-3.5); Glucose 127 mg/dL (83-110); Lipase 7 U/L (8-78); Potassium 4.6 mmol/L (3.5-5.1); Protein, Total 6.8 g/dL (6.0-8.3); Sodium 137 mmol/L (136-145)
--- NOTE | 2017-08-04 15:00 | CT ---
CT HEAD NONCONTRAST: HISTORY: Headache. FINDINGS: No comparison. There is no evidence of acute intracranial hemorrhage or infarct. Choroid is favored to account for the hyperdensity at the medial aspect of the right temporal lobe inferiorly. There i s no mass effect or shift of midline structures. Mild chronic ischemic changes are apparent within t he periventricular white matter of each cerebral hemisphere. A small amount of fluid layers within t he ethmoid air cells and maxillary sinuses. IMPRESSION: 1. No acute intracranial abnormalities are demonstrated on noncontrast CT head. 2. Fluid within the paranasal sinuses could reflect sinusitis and the cause of the headache. POS: [facility]
--- NOTE | 2017-08-04 15:02 | RAD ---
CHEST 1 VIEW: HISTORY: Cough. Chest pain. FINDINGS: No comparison. The cardiac silhouette is magnified by projection. Pulmonary vasculature is upper li mits of normal. Calcified granulomata are consistent with healed granulomatous disease. Gas contain ing structure correlates with hiatal hernia seen on recent CT. There is no lobar consolidation or ev idence of pneumothorax. IMPRESSION: 1. Borderline pulmonary vascular congestion. 2. Hiatal hernia. POS: [facility]
[2017-08-04 15:04] LABS: CKMB 0.5 ng/mL (0-6.6); Troponin I Less than 0.010 ng/mL (< 0.028)
[2017-08-04] MEDS ORDERED: Metoclopramide HCl 10 MG/2 ML VIAL ONE (15:58)
[2017-08-04] MEDS ORDERED: Ketorolac Tromethamine 30 MG/ML VIAL ONE (15:58)
[2017-08-04] MEDS ORDERED: methylPREDNISolone Sod Succ/PF 125 MG/2 ML VIAL ONE (15:58)
[2017-08-04] MEDS ORDERED: Water For Inject, Bacteriostat 30 ML ONE (15:58)
== END 2017-08-04 16:30 | disposition home or self-care (01) ==
LOC: ERS 13:12
DX: E86.0 Dehydration (principal); G43.909 Migraine, unspecified, not intractable, without status migrainosus; D64.9 Anemia, unspecified
CPT/HCPCS: 36415; 70450; 71045; 80053; 82553; 83605; 83690; 84484; 85025; 96361; 96365; 96375; J1100; J1885; J2405; J2765; J2930

== ENCOUNTER 2018-09-01 13:03 | Outpatient (CLI) | payer MEDICARE ==
[~2018-09-01 13:03] MED LIST: Iopamidol 370 76% 100 ML VIAL ONE
[2018-09-01 13:42] LABS: Estimated GFR-MDRD - POC Greater than 90
--- NOTE | 2018-09-01 15:09 | CT ---
CT ABDOMEN AND PELVIS WITH CONTRAST: HISTORY: Right lower quadrant pain. COMPARISON: CT abdomen and pelvis 05/21/2017. FINDINGS: There is a large sliding hiatal hernia approximately 50% of the gastric volume within the thoracic ca vity. Lung bases are clear. No pericardial effusion. The kidneys are unremarkable. The pancreas is unremarkable. The liver is unremarkable. No dilated loops of large or small bowel. Celiac trunk and superior mesenteric artery are patent. Too small to characterize hypodensities are present in both kidneys. Moderate diverticular disease o f the sigmoid colon without active current inflammation. No retroperitoneal adenopathy. Aortic contour is nonaneurysmal. The previously described thickening of the splenic flexure has resolved. IMPRESSION: 1. Large sliding hiatal hernia is similar. Approximately 50% of the gastric volume in the thoracic cavity. 2. Interval resolution of previously described splenic flexure colitis. 3. Moderate diverticular disease of the sigmoid colon without active current inflammation. 4. No acute inflammatory process in the abdomen or pelvis. POS: [facility]
== END 2018-09-01 13:04 | disposition home or self-care (01) ==
LOC: BICCT 13:03
PROVIDERS: ATTEND Internal Medicine Gastroenterology
DX: R10.31 Right lower quadrant pain (principal); K44.9 Diaphragmatic hernia without obstruction or gangrene; K52.89 Other specified noninfective gastroenteritis and colitis; K57.30 Diverticulosis of large intestine without perforation or abscess without bleeding
CPT/HCPCS: 74177; 81001; 82565; 87077; 87086; 87186; Q9967

== ENCOUNTER 2018-09-29 18:07 | Inpatient (IN) | payer MEDICARE ==
[2018-09-29 18:35] LABS: #Basophils 0.1 thou/uL (0.0-0.2); #Eosinphils 0.1 thou/uL (0.0-0.7); #Lymphocytes 1.7 thou/uL (1.20-3.40); #Monocytes 0.7 thou/uL (0.11-0.59); #Neutrophils 9.5 thou/uL (1.40-6.50); %Basophils 0.6 % (0.0-1.0); %Eosinophils 0.4 % (0.0-10.0); %Lymphocytes 14.1 % (21.0-51.0); %Monocytes 5.4 % (0.0-10.0); %Neutrophils 79.5 % (42.0-75.0); Hemoglobin 16.5 g/dL (12.0-16.0); Mean Corpuscular HGB CONC 32.6 g/dL (32.0-36.0); Mean Corpuscular Hemoglobin 29.6 pg (27.0-31.0); Mean Corpuscular Volume 90.9 fL (78.0-98.0); Platelet Count 268 thou/uL (130-400); Red Blood Cell (RBC) Count 5.56 mill/uL (4.20-5.40)
[2018-09-29 19:04] LABS: ALT (SGPT) 15 U/L (8-55); AST (SGOT) 20 U/L (5-34); Albumin 4.4 g/dL (3.4-4.8); Alkaline Phosphatase 91 U/L (40-150); Anion Gap 15 mmol/L (10-20); BUN (Urea Nitrogen) 17 mg/dL (9.8-20.1); Bilirubin, Total 0.7 mg/dL (0.2-1.2); Calc. Creatinine Clearance 0 mL/min (70-130); Calcium 11.1 mg/dL (7.8-10.44); Carbon Dioxide 22 mmol/L (23-31); Chloride 106 mmol/L (98-107); Estimated GFR-MDRD 66; Globulin 2.7 g/dL (2.4-3.5); Glucose 149 mg/dL (83-110); Lipase 6 U/L (8-78); Potassium 4.2 mmol/L (3.5-5.1); Protein, Total 7.1 g/dL (6.0-8.3); Sodium 139 mmol/L (136-145)
[2018-09-29] MEDS ORDERED: Promethazine HCl 25 MG/ML VIAL ONE (20:37)
[2018-09-29] MEDS ORDERED: Pantoprazole 40 MG VIAL ONE (21:38)
--- NOTE | 2018-09-29 21:56 | RAD ---
CHEST ONE VIEW ABDOMEN TWO VIEWS 09/29/18 HISTORY: Pain. Vomiting. Diverticulitis. FINDINGS: CHEST ONE VIEW: There appears to be an enlarged cardiac silhouette. The pulmonary vessels and hilum are normal. Costo phrenic angles are clear. No consolidation or mass. No pneumothorax or osseous abnormalities. Large hiatal hernia with air fluid level. ABDOMEN TWO VIEWS: There are distended air filled loops of small bowel, worrisome for an obstructive process. There is s till some gas and fecal material noted in the colon. IMPRESSION: 1. Large hiatal hernia with air fluid level. 2. Early/partial small bowel obstruction. POS: [facility]
[2018-09-29] MEDS ORDERED: Benzocaine 20% Spray 60 ML CAN ONE (23:19)
[2018-09-29] MEDS ORDERED: Lidocaine Viscous Sol 2% 15 ml UD Cup ONE (23:19)
[2018-09-30] MEDS ORDERED: Ondansetron ODT 4 MG TAB SL PRN (00:49)
[2018-09-30] MEDS ORDERED: Acetaminophen 325 MG TAB PO PRN (00:49)
[2018-09-30] MEDS ORDERED: Ondansetron PF 4 MG/2 ML Vial IVP PRN (00:49)
[2018-09-30] MEDS ORDERED: Sodium Chloride 0.9% 1,000 ML IV SCH (00:49)
[2018-09-30] MEDS ORDERED: Promethazine HCl 12.5 MG in Sodium Chloride 0.9% 50 ML IVPB PRN (00:51)
[2018-09-30] MEDS ORDERED: Fentanyl 100 MCG/2 ML VIAL SLOW IVP PRN ×2 (01:05→07:15)
[2018-09-30] MEDS ORDERED: Sodium Chloride 0.65% Nasal 44 ML BOT EA NARE PRN (07:15)
[2018-09-30] MEDS ORDERED: Eucerin (Mineral Oil/Petrolatum,White) 30 gm Jar TOP PRN (07:15)
[2018-09-30] MEDS ORDERED: Acetaminophen 650 MG Suppository PR PRN (07:15)
[2018-09-30] MEDS ORDERED: Artificial Tears 18 DROP/0.9 ML EA EYE PRN (07:15)
[2018-09-30] MEDS ORDERED: hydrALAZINE 20 MG/ML VIAL SLOW IVP PRN (07:15)
[2018-09-30] MEDS ORDERED: Labetalol HCl 100 MG/20 ML VIAL SLOW IVP PRN (07:15)
[2018-09-30] MEDS ORDERED: Bisacodyl 10 MG SUPP PR PRN (07:15)
[2018-09-30] MEDS: Pantoprazole 40 MG VIAL IVP SCH ×2 (08:47→22:04)
[2018-09-30] MEDS: Enoxaparin Sodium 40 MG/0.4 ML SYRINGE SC SCH (09:00)
[2018-09-30] MEDS: Sodium Chloride 0.9% 1,000 ML IV SCH ×2 (10:33→22:07)
[2018-09-30] MEDS: Ondansetron PF 4 MG/2 ML Vial IVP PRN ×2 (10:34→23:03)
--- NOTE | 2018-09-30 11:37 | CON ---
DATE OF CONSULTATION: 09/30/2018 REQUESTING PHYSICIAN: Dr. Nick Lucia. HISTORY: This is a 78-year-old woman, who presented to emergency department complaining of a 3- to 4-day history of lower abdominal pain, which she describes as crampy and intermittent rated at 8/10 maximum intensity. Pain is associated with multiple episodes of nausea and nonbilious emesis. The patient endorses early satiety and anorexia over the last several days. She denies any fevers or chills. Last bowel movement was day before yesterday and last time she passed flatus was yesterday. She denies any unexplained weight loss. PAST MEDICAL HISTORY: Significant for diverticulosis coli, acute left colonic diverticulitis in 2017, diverticular hemorrhage within the last year and a half. PAST SURGICAL HISTORY: Pertinent for left knee arthroscopic surgery, laparoscopic cholecystectomy, total abdominal hysterectomy with bilateral salpingo- oophorectomy with an incidental appendectomy at that time as well. SOCIAL HISTORY: The patient denies any cigarette smoking, ethanol, or illicit drug abuse. FAMILY HISTORY: Noncontributory for this patient's age. PREHOSPITAL MEDICATIONS: None. ALLERGIES: CODEINE. REVIEW OF SYSTEMS: Ten-point review of systems is essentially unremarkable except as stated in past medical history and chief complaint. PHYSICAL EXAMINATION: GENERAL: This reveals a 78-year-old normally developed woman, who is otherwise coherent, interactive, appears stated age. The patient is alert and oriented x3. She appears to be in no acute distress at time of my evaluation. VITAL SIGNS: Today include blood pressure of 141/79, pulse is 74, respiratory rate is 18, temperature is 97.9 degrees Fahrenheit, oxygen saturation is 93% on room air. HEENT: Reveals normocephalic and atraumatic. She has a nasogastric tube in place, which has returned less than 500 mL of nonbilious gastric effluent over the last 24 hours. HEART: Reveals regular rate and rhythm. No murmurs or gallops auscultated. LUNGS: Clear to auscultation bilaterally. Her breathing is regular and nonlabored. ABDOMEN: Soft and moderately distended with no significant tenderness to palpation. She clearly has no rebound tenderness present. Liver and spleen nonpalpable below costal margin. She has healed infraumbilical incisional scar consistent with previous history of abdominal hysterectomy. Laparoscopic cholecystectomy incisional scar is completely healed. NEUROLOGIC: Reveals no focal deficits present. LABORATORY FINDINGS: From yesterday include a CBC with 12,000 white blood cells , hemoglobin and hematocrit of 16.5 and 50.6 respectively. Platelet count 268,000. Metabolic profile from yesterday as well, sodium 139, potassium is 4.2, chloride is 106, bicarb 22, BUN 17, creatinine 0.84, glucose 149, total bilirubin 0.7, lipase is 6. I have personally reviewed the abdominal x-ray, which was obtained yesterday. This reveals multiple distended loops of small bowel with air-fluid levels. Intrathoracic stomach is also noted with air-fluid level. There is paucity of gas in the colon and rectum. IMPRESSION: 1. Acute small-bowel obstruction. 2. Large hiatal hernia. PLAN: 1. Continue with nasogastric tube decompression. 2. We will obtain a small-bowel follow-through to better define the pattern of obstruction. 3. There is no acute surgical indication for this patient at this time, however, surgical intervention will be considered if conservative management fails to resolve the obstruction. Above findings and recommendation have been discussed with the patient, who indicates understanding of information given. I have answered her questions. Thank you again, Dr. Lucia, for allowing me the opportunity to participate in care of this patient. Job ID: [id number] [facility]
--- NOTE | 2018-09-30 12:20 | HP ---
PRIMARY CARE PHYSICIAN: Linwood Belle M.D. REASON FOR ADMISSION: Partial small-bowel obstruction. HISTORY OF PRESENT ILLNESS: A 78-year-old female who presented to emergency room with complaint of diffuse abdominal pain. The patient reports that she was recently diagnosed with diverticulitis by stack matcher and the patient has finished antibiotic therapy. The patient also had last month CT abdomen and pelvis, which showed large sliding hiatal hernia without any acute abdominal process and diverticulitis was resolved. The patient reports that CT scan was done by Dr. Herr, because patient was having right lower quadrant pain and she had intermittent hematochezia, but CT did not show any acute process. Subsequently patient was doing well up until last 4 days when she started feeling abdominal pain. She was having diffuse crampy abdominal pain about 5/10 in intensity, which was getting worse with food. She did not have any bowel movement or she was not noticing any passing gas. Her belly was getting more distended and that is why she decided to come to emergency room for evaluation. In the emergency room, the patient had x-ray abdomen, which showed hiatal hernia and partial small-bowel obstruction. The patient was treated conservatively with NG tube with low intermittent suction. When I saw this patient, at that time patient was comfortable. Her pain was subsided. She did not have any fever or chills. She denies any UTI symptoms. She denies any constipation, diarrhea, melena, hematochezia, other than the patient did not have any bowel movement for last 4 days. She denies any weight loss. She never had this type of problem in the past. REVIEW OF SYSTEMS: CONSTITUTIONAL: Negative for weight loss or gain, ability to conduct usual activities. SKIN: Negative for rash, itching. EYES: Negative for double vision, pain. ENT/MOUTH: Negative for nose bleeding, neck stiffness, pain, tenderness. CARDIOVASCULAR: Negative for palpitations, dyspnea on exertion, orthopnea. RESPIRATORY: Negative for shortness of breath, wheezing, cough, hemoptysis, fever or night sweats. GASTROINTESTINAL: Negative for poor appetite, abdominal pain, heartburn, nausea, vomiting, constipation, or diarrhea. GENITOURINARY: Negative for urgency, frequency, dysuria, nocturia. MUSCULOSKELETAL: Negative for pain, swelling. NEUROLOGIC/PSYCHIATRIC: Negative for anxiety, depression. ALLERGY/IMMUNOLOGIC: Negative for skin rash, bleeding tendency. Please see my HPI for pertinent positive and negative. All other review of systems reviewed and negative except as mentioned in HPI. PAST MEDICAL HISTORY: 1. Diverticulitis. 2. Anemia. 3. Normocytic normochromic. PAST SURGICAL HISTORY: 1. Left knee surgery. 2. Cholecystectomy. 3. Hysterectomy. PAST PSYCHIATRIC HISTORY: Reviewed and negative. SOCIAL HISTORY: The patient is living at home with family. No history of tobacco, alcohol, or illicit drug abuse. FAMILY HISTORY: No family history of coronary artery disease, stroke, or cancer. ALLERGY: Codeine. CURRENT HOME MEDICATIONS: The patient is not on any specific medication at this point. EMERGENCY ROOM COURSE: The patient had NG tube placed and low intermittent suction was started. Protonix was given, IV fluid was given and Phenergan x2 was given. PHYSICAL EXAMINATION: VITAL SIGNS: Currently, blood pressure 114/74, pulse 102, respiratory rate 20, temperature 97.2, saturation 96% on room air, weight 84.8 kg. GENERAL: The patient is currently alert, awake. No obvious acute distress. HEENT: Head; normocephalic, atraumatic. Eyes; pupils round, reactive to light. Extraocular muscle intact. ENT: Oropharynx within normal limits. Moist mucous membranes. No oral lesion. No pharyngeal erythema. No exudate. NECK: Supple. No JVD. No thyromegaly. No carotid bruit. No jugular venous distention. LUNGS: Clear to auscultation without any rhonchi or rales. CARDIAC: S1, S2. Regular without any murmur. ABDOMEN: Soft. Diffuse discomfort noted. No bowel sounds. No organomegaly. No mass. No guarding. No rigidity. No rebound. No peritoneal sign. BACK: Unremarkable. No CVA tenderness. EXTREMITIES: Upper extremities; passive movement of all joints are normal. Lower extremity, no edema. Good distal pulsation. SKIN: No skin rash. HEMATOLOGICAL: No lymphadenopathy. PSYCHIATRIC: Normal affect. SIGNIFICANT LABORATORY DATA: X-ray abdomen showing large hiatal hernia, air-fluid level, partial small-bowel obstruction. CBC: WBC 12.0, hemoglobin 16.5, platelet 268. BMP: Sodium 139, potassium 4.2, chloride 106, carbon dioxide 22, BUN 17, creatinine 0.84, glucose 149, calcium 11.1. LFT: AST 20, ALT 15, alkaline phosphatase 91, albumin 4.4. ASSESSMENT/PLAN: 1. Partial small bowel obstruction. Currently, we are treating her condition with conservative therapy with nasogastric tube in low intermittent suction. The patient is getting IV fluid with NS at 120 mL/hour. 2. We will continue Protonix 40 mg IV b.i.d. 3. We will consult General Surgery. 4. The patient will need a small bowel x-ray. We are hoping that with conservative therapy, her partial small-bowel obstruction will resolve. 5. Large hiatal hernia. The patient is already on Protonix therapy. 6. Diverticulosis. The patient will need outpatient gastroenterology followup. 7. Obesity with body mass index of 30. 8. Dietary education given. Weight loss education given. 9. Deep venous thrombosis prophylaxis. Lovenox 40 mg subcu daily. 10. Gastrointestinal prophylaxis, Protonix 40 mg IV b.i.d. CODE STATUS: The patient is full code. DISPOSITION PLAN: Based on clinical course. We will keep her n.p.o. for now and based on small bowel x-ray, we will decide whether the patient needs to start on liquid diet or stay n.p.o. Job ID: [id number]
[2018-09-30] MEDS ORDERED: ISOVUE-370 76%-LOCM 1 ML ONE (12:48)
[2018-09-30] MEDS ORDERED: MD-Gastroview 120 ML BOT ONE (12:57)
--- NOTE | 2018-09-30 16:22 | RAD ---
SMALL BOWEL FOLLOW THROUGH 09/30/18 Comparison made to plain film radiographs from 09/29/18. [employer] radiograph demonstrates an NG tube coiled within the stomach which also has a hiatal hernia. On e cup of gastrografin was given. There is marked small bowel dilatation concerning for small bowel obstruction. Stool is seen in the c olon. Even after four hours not significant amount of the gastric contents has passed into the small bowel. IMPRESSION: Findings concerning for bowel obstruction including possible small bowel obstruction. POS: [facility]
--- NOTE | 2018-09-30 17:23 | CT ---
CT OF THE ABDOMEN AND PELVIS WITH IV CONTRAST 09/30/18 INDICATION: History of small bowel obstruction. COMPARISON: Prior exam dated 09/01/18. FINDINGS: There has been interval development of a high grade partial small bowel obstruction with a transition zone seen within the right lower quadrant involving the ileum on image 73 of series 2 and image 58 o f the coronal series. There is mild free fluid within the abdomen and pelvis. There is small bilateral pleural effusion, left greater than right. There is a large hiatal hernia. Gallbladder is surgically absent. Pancreas and kidneys are unchanged from the comparison. Spleen is unchanged. There are scattered diverticula involving the colon without overt evidence of active diverticulitis. There is diffuse osteopenia. There is scattered degenerative and osteoarthritic change. IMPRESSION: 1. High grade partial small bowel obstruction has developed in the interim with a transition zon e in the right lower quadrant of the abdomen. 2. Mild free fluid in the abdomen and pelvis. 3. Small bilateral pleural effusion, left greater than right. 4. Other chronic findings as above. 5. Large hiatal hernia. POS: [facility]
[2018-10-01] MEDS: Sodium Chloride 0.9% 1,000 ML IV SCH (01:22)
[2018-10-01] MEDS: Promethazine HCl 25 MG/ML VIAL IM/IV PRN (03:33)
[2018-10-01] MEDS: Morphine 4 MG/ML VIAL SLOW IVP PRN ×3 (04:47→16:22)
[2018-10-01 06:11] LABS: #Basophils 0.1 thou/uL (0.0-0.2); #Eosinphils 0.1 thou/uL (0.0-0.7); #Lymphocytes 1.3 thou/uL (1.20-3.40); #Monocytes 0.7 thou/uL (0.11-0.59); #Neutrophils 5.7 thou/uL (1.40-6.50); %Basophils 0.8 % (0.0-1.0); %Lymphocytes 17.2 % (21.0-51.0); %Monocytes 8.3 % (0.0-10.0); %Neutrophils 72.7 % (42.0-75.0); Hemoglobin 13.4 g/dL (12.0-16.0); Mean Corpuscular Hemoglobin 29.2 pg (27.0-31.0); Mean Corpuscular Volume 91.3 fL (78.0-98.0); Mean Platelet Volume 10.9 fL (7.4-10.4); Platelet Count 197 thou/uL (130-400); RBC Distribution Width 11.9 % (11.5-14.5); Red Blood Cell (RBC) Count 4.57 mill/uL (4.20-5.40); White Blood Cell (WBC) Count 7.8 thou/uL (4.8-10.8)
[2018-10-01 06:29] LABS: Anion Gap 10 mmol/L (10-20); BUN (Urea Nitrogen) 17 mg/dL (9.8-20.1); Calc. Creatinine Clearance 91 mL/min (70-130); Calcium 9.5 mg/dL (7.8-10.44); Carbon Dioxide 26 mmol/L (23-31); Chloride 112 mmol/L (98-107); Estimated GFR-MDRD 82; Glucose 93 mg/dL (83-110); Potassium 3.4 mmol/L (3.5-5.1); Sodium 145 mmol/L (136-145)
[2018-10-01 07:48] LABS: Magnesium 1.5 mg/dL (1.6-2.6)
[2018-10-01] MEDS ORDERED: Sodium Chloride 0.9% 1,000 ML IV SCH (08:15)
[2018-10-01] MEDS ORDERED: Phenylephrine HCL 10 MG/ML VIAL ONE (08:23)
[2018-10-01] MEDS ORDERED: Fentanyl 100 MCG/2 ML VIAL ONE (08:23)
[2018-10-01] MEDS ORDERED: Magnesium Sulfate 2 GM in Sodium Chloride 0.9% 100 ML IVPB SCH (08:30)
[2018-10-01] MEDS ORDERED: ceFOXitin 1 GM VIAL ONE ×2 (08:32→10:50)
[2018-10-01] MEDS ORDERED: Potassium Phosphate 30 MMOL, Magnesium Sulfate 2 GM in Sodium Chloride 0.9% 500 ML IVPB SCH ×2 (09:00→12:45)
--- NOTE | 2018-10-01 10:11 | PDOC.PN ---
- Subjective Encounter Start Date: 10/01/18 Encounter Start Time: 08:35 -: old records requested/rev pt does not have improvement with conservative treatment, will need surgery - Objective Resuscitation Status - Order Detail: 09/30/18 07:12 Resuscitation Status Routine Resuscitation Status: FULL: Full Resuscitation MAR Reviewed: Yes Vital Signs & Weight: Vital Signs (12 hours) Temp Pulse Resp BP Pulse Ox 10/01/18 07:22 97.9 F 75 18 135/79 96 10/01/18 04:44 97.6 F 75 20 118/74 95 10/01/18 00:15 98.5 F 78 20 119/75 96 Weight Admit Weight 186 lb 15.936 oz Weight 186 lb 15.936 oz I&O: 09/30/18 10/01/18 10/02/18 06:59 06:59 07:59 Intake Total 660 2500 Output Total 120 1400 Balance 540 1100 Result Diagrams: 10/01/18 05:37 10/01/18 05:37 Radiology Reviewed by me: Yes (CT abdomen and small bowel noted) Phys Exam - Physical Examination Constitutional: NAD HEENT: PERRLA, moist MMs, sclera anicteric Neck: no JVD, supple Respiratory: no wheezing, no rales, no rhonchi Cardiovascular: RRR, no significant murmur, no rub Gastrointestinal: soft diffuse soreness, no BS Musculoskeletal: no edema, pulses present Neurological: non-focal, normal sensation Psychiatric: normal affect, A&O x 3 Skin: no rash, normal turgor Dx/Plan (1) SBO (small bowel obstruction) Code(s): K56.609 - UNSP INTESTNL OBST, UNSP TO PARTIAL VERSUS COMPLETE OBST Status: Acute (2) Diverticulosis of colon Code(s): K57.30 - DVRTCLOS OF LG INT W/O PERFORATION OR ABSCESS W/O BLEEDING Status: Chronic (3) Hiatal hernia Code(s): K44.9 - DIAPHRAGMATIC HERNIA WITHOUT OBSTRUCTION OR GANGRENE Status: Chronic (4) Obesity (BMI 30.0-34.9) Code(s): E66.9 - OBESITY, UNSPECIFIED Status: Chronic (5) Hypokalemia Code(s): E87.6 - HYPOKALEMIA Status: Acute (6) Hypomagnesemia Code(s): E83.42 - HYPOMAGNESEMIA Status: Acute (7) UTI (urinary tract infection) Status: Acute - Plan cont current plan of care, continue antibiotics, incentive spirometry * replace potassium and magnesium * change IVF NS with KCL at 100 ml per hour * start rocephin for UTI * discussed with surgeon, pt will need surgery * medication reviewed as below * symptomatic treatment. Review of Systems - Review of Systems Eyes: negative: Pain, Vision Change, Conjunctivae Inflammation, Eyelid Inflammation, Redness, Other ENT: negative: Ear Pain, Ear Discharge, Nose Pain, Nose Discharge, Nose Congestion, Mouth Pain, Mouth Swelling, Throat Pain, Throat Swelling, Other Respiratory: negative: Cough, Dry, Shortness of Breath, Hemoptysis, SOB with Excertion, Pleuritic Pain, Sputum, Wheezing Cardiovascular: negative: chest pain, palpitations, orthopnea, paroxysmal nocturnal dyspnea, edema, light headedness, other Gastrointestinal: Abdominal Pain. negative: Nausea, Vomiting, Diarrhea, Constipation, Melena, Hematochezia, Other Genitourinary: negative: Dysuria, Frequency, Incontinence, Hematuria, Retention , Other Musculoskeletal: negative: Neck Pain, Shoulder Pain, Arm Pain, Back Pain, Hand Pain, Leg Pain, Foot Pain, Other - Medications/Allergies Allergies/Adverse Reactions: Allergies Allergy/AdvReac Type Severity Reaction Status Date / Time codeine Allergy Severe Verified 05/14/17 16:21 Medications: Current Medications Acetaminophen (Tylenol) 650 mg NC Q4H PRN PRN Reason: Headache/Fever/Mild Pain (1-3) Albuterol/Ipratropium (Duoneb) 3 ml NEB Q6H PRN PRN Reason: SOB &/or Wheezing Artificial Tears (Tears Naturale) 2 drop EA EYE PRN PRN PRN Reason: Dry Eyes Bisacodyl (Dulcolax) 10 mg NC DAILYPRN PRN PRN Reason: Constipation Enoxaparin Sodium (Lovenox) 40 mg SC 0900 ANDREA Last Admin: 09/30/18 09:00 Dose: 40 mg Fentanyl (Sublimaze) 25 mcg SLOW IVP Q2H PRN PRN Reason: Pain Last Admin: 09/30/18 13:09 Dose: 25 mcg Hydralazine HCl (Apresoline) 10 mg SLOW IVP Q4H PRN PRN Reason: SBP > 180 and HR < 70 Sodium Chloride (Normal Saline 0.9%) 1,000 mls @ 100 mls/hr IV .Q10H ANDREA Ceftriaxone Sodium 1 gm/ (Sodium Chloride) 100 mls @ 200 mls/hr IVPB Q24HR ANDREA Labetalol HCl (Normodyne) 20 mg SLOW IVP Q4H PRN PRN Reason: SBP > 180 and HR >/= 70 Mineral Oil/White Petrolatum (Eucerin Cream) 0 gm TOP BIDPRN PRN PRN Reason: Dry Skin Morphine Sulfate (Morphine) 4 mg SLOW IVP Q4H PRN PRN Reason: Severe Pain (7-10) Last Admin: 10/01/18 04:47 Dose: 4 mg Ondansetron HCl (Zofran Odt) 4 mg SL Q6H PRN PRN Reason: Nausea/Vomiting Ondansetron HCl (Zofran) 4 mg IVP Q6H PRN PRN Reason: Nausea/Vomiting Last Admin: 09/30/18 23:03 Dose: 4 mg Pantoprazole Sodium (Protonix) 40 mg IVP Q12HR ANDREA Last Admin: 09/30/18 22:04 Dose: 40 mg Promethazine HCl (Phenergan) 25 mg IM/IV Q6H PRN PRN Reason: Nausea 2nd line Last Admin: 10/01/18 03:33 Dose: 25 mg Sodium Chloride ([place] Nasal [place] 0.65%) 0 ml EA NARE QIDPRN PRN PRN Reason: Nasal Congestion Sodium Chloride (Flush - Normal Saline) 10 ml IVF Q12HR [facility] Sodium Chloride (Flush - Normal Saline) 10 ml IVF PRN PRN PRN Reason: Saline Flush Last Admin: 10/01/18 03:33 Dose: 10 ml
[2018-10-01] MEDS ORDERED: NS 0.9% w/ 20 MEQ KCL 1,000 ML/1,000 ML BAG IV SCH (10:15)
[2018-10-01] MEDS ORDERED: Potassium Chloride 20 MEQ in Premix Bag 1 BAG IVPB SCH (11:45)
[2018-10-01] MEDS ORDERED: Magnesium Sulfate 3 GM in Sodium Chloride 0.9% 100 ML IVPB SCH (12:00)
[2018-10-01] MEDS ORDERED: cefTRIAXone\\ROCEPHIN 1 GM in Sodium Chloride 0.9% 100 ML IVPB SCH (12:00)
[2018-10-01] MEDS ORDERED: Ketorolac Tromethamine 15 MG/ML VIAL IVP SCH (12:00)
[2018-10-01] MEDS: Enoxaparin Sodium 40 MG/0.4 ML SYRINGE SC SCH (12:01)
--- NOTE | 2018-10-01 12:12 | RAD ---
SINGLE VIEW OF THE CHEST: COMPARISON: 08/04/2017. HISTORY: Status post surgery. Evaluate Dobbhoff tube placement. FINDINGS: A single view of the chest shows a normal-size cardiomediastinal silhouette. There is no evidence of consolidation, mass, or pleural effusion. Midline skin hany are seen in the abdomen. A Dobbhoff tube is seen curling in a C configuration i n the upper abdomen and likely has its tip in the proximal jejunum. IMPRESSION: 1. No evidence of acute cardiopulmonary disease. 2. Dobbhoff tube likely located in the proximal jejunum. POS: [facility]
[2018-10-01] MEDS: Acetaminophen 500 MG TAB PO SCH ×2 (12:32→17:56)
[2018-10-01] MEDS: D5 1/2 NS w/20 mEq KCL 1,000 ML IV SCH ×2 (12:32→22:48)
[2018-10-01] MEDS: Ketorolac Tromethamine 30 MG/ML VIAL IVP SCH ×3 (12:47→22:48)
[2018-10-01] MEDS: Ondansetron PF 4 MG/2 ML Vial IVP PRN (12:48)
--- NOTE | 2018-10-01 13:03 | OP ---
DATE OF PROCEDURE: 10/01/2018 PREOPERATIVE DIAGNOSES: 1. Acute small-bowel obstruction. 2. Large hiatal hernia. POSTOPERATIVE DIAGNOSES: 1. Acute small-bowel obstruction secondary to intraabdominal adhesions. 2. Large esophageal hernia with intrathoracic stomach. PROCEDURES PERFORMED: 1. Exploratory laparotomy. 2. Adhesiolysis. 3. Plication of diaphragmatic crura. 4. Gastropexy. 5. Placement of feeding the nasojejunal tube. ANESTHESIA: General endotracheal. ESTIMATED BLOOD LOSS: 50 mL. FLUIDS GIVEN: crystalloids. COUNTS: Sponge and instrument counts were verified as correct x2. COMPLICATIONS: None apparent at the time of operation. INDICATIONS FOR OPERATION: A 78-year-old woman, presented with a 4-day history of progressive abdominal pain and bloating without bowel movement or flatus. Clinical radiographic examination was consistent with acute small-bowel obstruction. We initiated conservative management including bowel rest, nasogastric tube decompression, and IV hydration. Small bowel follow-through revealed high-grade small-bowel obstruction. Large chronic hiatal hernia with mostly intrathoracic stomach was also noted. The patient was brought to the operating room for exploration. Findings are consistent with large esophageal hernia with 2/3rd of the stomach within the thoracic cavity. Also noted was dense pelvic adhesions causing a closed loop of distal small bowel obstruction. DESCRIPTION OF PROCEDURE: Informed consent was obtained from the patient, she was brought to the operating room and placed in supine position. Following general anesthesia, a Reddy catheter was inserted and placed to bedside drain. The abdomen was sterilely prepped and draped in usual fashion. A midline incision was made using #10 scalpel. Incision was carried through subcutaneous tissues maintain hemostasis using cautery. Fascia was incised in midline exposing the peritoneum beneath, which was grasped x2 with hemostats. The peritoneal cavity was sharply entered using Metzenbaum scissors. The incision was then extended superiorly and inferiorly. A Bookwalter retractor was put in place to gain exposure. We were then able to take down omental adhesions off the anterior abdominal wall. Once this was achieved with good hemostasis, the small bowel was run from ligament of Treitz down to distal ileum, which was completely trapped in a dense adhesions within the pelvic cavity. Meticulous takedown of adhesions ensued. The remainder of the small bowel was then run down to the terminal ileum finding no other pathology. Large intestine was inspected from the cecum through the ascending, transverse, descending, sigmoid colon, and rectum. Diverticulosis coli of the sigmoid colon noted. No acute diverticulitis present. Liver was palpated free of any abnormalities. The spleen was noted in the usual anatomic location, free of any palpable masses. We were then able to bluntly dissect the esophageal hiatus returning the stomach into the abdominal cavity. Adventitia of the diaphragmatic crura were scored. We proceeded to plicate the diaphragmatic crura around the esophagus using interrupted sutures of #1 Ethibond. Given the patient's age and lack of preoperative esophageal manometry, we decided to avoid fundoplication. We then decided to proceed with gastropexy. To achieve this, pursestring suture was placed in the anterior aspect of the gastric fundus, which was chosen for gastrostomy tube placement. A stab incision was made in the left upper quadrant through which tonsil clamp was introduced and a 22-Vietnamese gastrostomy tube was introduced into the peritoneal cavity through this defect. The balloon was tested for good integrity. Gastrotomy was made using the Bovie. This was made in the center of the pursestring suture. The gastrostomy tube was then inserted through this gastrotomy defect and placed in the gastric lumen. The balloon was inflated with 20 mL of sterile water. The gastrostomy was then pulled through the anterior abdominal wall securing this within the abdominal cavity using interrupted sutures of 3-0 silk at two points. The abdominal cavity was then copiously irrigated clear with saline. All sponges and instruments were removed and accounted for. Sheet of Seprafilm was placed in the deep pelvis and small bowel returned to normal anatomic location. A second piece of Seprafilm was placed over the remainder of the small bowel and omentum was drawn over the remainder of the viscera. The fascia was approximated in the midline using a running stitch of #1 single stranded PDS. Subcutaneous tissues were pulse lavaged with 3 L of sterile saline. Subcutaneous tissues were approximated using interrupted sutures of 2-0 Vicryl. The skin was closed using hany. Sterile dressings were applied. The patient tolerated the operation without any apparent complication and was returned to recovery room in satisfactory condition. Job ID: [id number]
[2018-10-01] MEDS ORDERED: Rocuronium Bromide 10 MG/ML (10ML VIAL) ONE (15:02)
[2018-10-01] MEDS ORDERED: Lidocaine 1% PF 5 ML VIAL ONE (15:02)
[2018-10-01] MEDS ORDERED: PHENYLEPHRINE-NS 100 MCG/ML 10 ML SYRINGE ONE (15:02)
[2018-10-01] MEDS ORDERED: Esmolol 100 MG/10 ML VIAL ONE (15:02)
[2018-10-01] MEDS ORDERED: ePHEDrine 50 MG/ML VIAL ONE (15:02)
[2018-10-01] MEDS ORDERED: Dexamethasone 20 MG/5 ML VIAL ONE (15:02)
[2018-10-01] MEDS ORDERED: PROPOFOL 200 MG/20 ML VIAL ONE (15:02)
[2018-10-01] MEDS ORDERED: Succinylcholine Chloride 20 MG/ML 10 ml SYRINGE FS ONE (15:02)
[2018-10-01] MEDS ORDERED: Glycopyrrolate 0.2 MG/ML 5 ML SYRINGE ONE (15:02)
[2018-10-01] MEDS ORDERED: Ondansetron PF 4 MG/2 ML Vial ONE (15:02)
[2018-10-01] MEDS: Pantoprazole 40 MG VIAL IVP SCH ×2 (16:09→21:50)
[2018-10-01 18:02] LABS: Bilirubin Small (Negative); Blood, Urine Negative (Negative); Clarity CLEAR (Clear); Glucose, Urine (Dipstick) Negative (Negative); Leukocyte Small (Negative); Nitrite Negative (Negative); Protein, Urine (Dipstick) Trace mg/dL (Neg-Trace); Specific Gravity, Urine 1.034 (1.002-1.036); Urobilinogen 0.2 mg/dL (0.2-1.0); pH, Urine 5.5 (5.0-9.0)
[2018-10-01 18:04] LABS: Bacteria/HPF None Seen HPF (None Seen); Hyaline Casts/LPF 4-6 HYALINE CAST LPF (0-3 Hyaline); Pathc Cast-AUWi Flag 0.95 (0-2.49); Squamous Epithelial 0-3 HPF (0-3)
[2018-10-01 18:23] LABS: Renal Epithelial None Seen HPF (0-3); Transitional Epithelial NONE SEEN HPF (0-3)
[2018-10-01 18:26] LABS: Urine Culture Reflex Yes Yes
[2018-10-02] MEDS: Acetaminophen 1,000 MG in Premix Bag 1 BAG IVPB SCH ×4 (01:20→19:29)
[2018-10-02] MEDS: Sodium Chloride 0.9% 500 ML IV SCH ×2 (01:21→05:16)
[2018-10-02] MEDS: Acetaminophen 500 MG TAB PO SCH (01:26)
[2018-10-02] MEDS ORDERED: Sodium Chloride 0.9% 500 ML IV SCH (05:00)
[2018-10-02] MEDS: Ketorolac Tromethamine 30 MG/ML VIAL IVP SCH ×4 (06:33→23:06)
[2018-10-02 07:03] LABS: #Eosinphils 0.2 thou/uL (0.0-0.7); #Lymphocytes 0.9 thou/uL (1.20-3.40); #Monocytes 0.4 thou/uL (0.11-0.59); #Neutrophils 4.2 thou/uL (1.40-6.50); %Basophils 0.6 % (0.0-1.0); %Eosinophils 2.6 % (0.0-10.0); %Lymphocytes 16.3 % (21.0-51.0); %Monocytes 7.2 % (0.0-10.0); %Neutrophils 73.4 % (42.0-75.0); Hemoglobin 12.3 g/dL (12.0-16.0); Mean Corpuscular HGB CONC 29.9 g/dL (32.0-36.0); Mean Corpuscular Hemoglobin 28.1 pg (27.0-31.0); Mean Corpuscular Volume 93.9 fL (78.0-98.0); Mean Platelet Volume 11.3 fL (7.4-10.4); Platelet Count 168 thou/uL (130-400); RBC Distribution Width 12.1 % (11.5-14.5); Red Blood Cell (RBC) Count 4.39 mill/uL (4.20-5.40); White Blood Cell (WBC) Count 5.8 thou/uL (4.8-10.8)
[2018-10-02 07:15] LABS: Anion Gap 10 mmol/L (10-20); BUN (Urea Nitrogen) 16 mg/dL (9.8-20.1); Calc. Creatinine Clearance 106 mL/min (70-130); Calcium 8.4 mg/dL (7.8-10.44); Carbon Dioxide 22 mmol/L (23-31); Chloride 115 mmol/L (98-107); Estimated GFR-MDRD Greater than 90; Glucose 127 mg/dL (83-110); Magnesium 1.7 mg/dL (1.6-2.6); Phosphorus 2.6 mg/dL (2.3-4.7); Potassium 3.9 mmol/L (3.5-5.1); Sodium 143 mmol/L (136-145)
[2018-10-02] MEDS: Enoxaparin Sodium 40 MG/0.4 ML SYRINGE SC SCH (09:00)
[2018-10-02] MEDS: Pantoprazole 40 MG VIAL IVP SCH ×2 (09:02→20:58)
--- NOTE | 2018-10-02 09:45 | PDOC.PN ---
- Subjective Encounter Start Date: 10/02/18 Encounter Start Time: 08:00 Patient seen and examined. No new complaints. No overnight events pt is not passing any gas she has no pain - Objective Resuscitation Status - Order Detail: 09/30/18 07:12 Resuscitation Status Routine Resuscitation Status: FULL: Full Resuscitation MAR Reviewed: Yes Vital Signs & Weight: Vital Signs (12 hours) Temp Pulse Resp BP Pulse Ox 10/02/18 08:59 97 10/02/18 08:17 98.0 F 80 15 123/75 97 10/02/18 04:00 97.9 F 75 18 117/72 97 10/02/18 00:00 97.9 F 85 16 126/66 97 Weight Admit Weight 186 lb 15.936 oz Weight 198 lb 6.4 oz Most Recent Monitor Data Heart Rate from ECG 94 NIBP 141/65 NIBP BP-Mean 90 Respiration from ECG 16 SpO2 96 I&O: 10/01/18 10/02/18 10/03/18 05:59 06:59 06:59 Intake Total Output Total Balance Result Diagrams: 10/02/18 06:01 10/02/18 06:01 Phys Exam - Physical Examination Constitutional: NAD HEENT: PERRLA, moist MMs, sclera anicteric J-tube in place Neck: no JVD, supple Respiratory: no wheezing, no rales, no rhonchi Cardiovascular: RRR, no significant murmur, no rub Gastrointestinal: soft surgical site with dressing, drain + Musculoskeletal: no edema, pulses present Neurological: non-focal, normal sensation, moves all 4 limbs Psychiatric: normal affect, A&O x 3 Skin: no rash, normal turgor Dx/Plan (1) SBO (small bowel obstruction) Code(s): K56.609 - UNSP INTESTNL OBST, UNSP TO PARTIAL VERSUS COMPLETE OBST Status: Acute Comment: s/p surgical repair (2) Diverticulosis of colon Code(s): K57.30 - DVRTCLOS OF LG INT W/O PERFORATION OR ABSCESS W/O BLEEDING Status: Chronic (3) Hiatal hernia Code(s): K44.9 - DIAPHRAGMATIC HERNIA WITHOUT OBSTRUCTION OR GANGRENE Status: Chronic Comment: s/p surgical repair (4) Obesity (BMI 30.0-34.9) Code(s): E66.9 - OBESITY, UNSPECIFIED Status: Chronic (5) Hypokalemia Code(s): E87.6 - HYPOKALEMIA Status: Acute (6) Hypomagnesemia Code(s): E83.42 - HYPOMAGNESEMIA Status: Acute (7) UTI (urinary tract infection) Status: Acute - Plan cont current plan of care, continue antibiotics, incentive spirometry, DVT proph w/lovenox, DVT proph w/SCDs * medication reviewed as below * symptomatic treatment * continue rocephin * post op surgical care as per surgery * continue feeding * repeat labs tomorrow * pain controlled. Review of Systems - Review of Systems ENT: negative: Ear Pain, Ear Discharge, Nose Pain, Nose Discharge, Nose Congestion, Mouth Pain, Mouth Swelling, Throat Pain, Throat Swelling, Other Respiratory: negative: Cough, Dry, Shortness of Breath, Hemoptysis, SOB with Excertion, Pleuritic Pain, Sputum, Wheezing Cardiovascular: negative: chest pain, palpitations, orthopnea, paroxysmal nocturnal dyspnea, edema, light headedness, other Gastrointestinal: negative: Nausea, Vomiting, Abdominal Pain, Diarrhea, Constipation, Melena, Hematochezia, Other Genitourinary: negative: Dysuria, Frequency, Incontinence, Hematuria, Retention , Other Musculoskeletal: negative: Neck Pain, Shoulder Pain, Arm Pain, Back Pain, Hand Pain, Leg Pain, Foot Pain, Other - Medications/Allergies Allergies/Adverse Reactions: Allergies Allergy/AdvReac Type Severity Reaction Status Date / Time codeine Allergy Severe Verified 05/14/17 16:21 Medications: Current Medications Albuterol/Ipratropium (Duoneb) 3 ml NEB Q6H PRN PRN Reason: SOB &/or Wheezing Artificial Tears (Tears Naturale) 2 drop EA EYE PRN PRN PRN Reason: Dry Eyes Bisacodyl (Dulcolax) 10 mg [place] DAILYPRN PRN PRN Reason: Constipation Enoxaparin Sodium (Lovenox) 40 mg SC 0900 [facility] Last Admin: 10/02/18 09:00 Dose: 40 mg Hydralazine HCl (Apresoline) 10 mg SLOW IVP Q4H PRN PRN Reason: SBP > 180 and HR < 70 Potassium Chloride/Dextrose/Sod Cl (D5 1/2 Ns W/20 Meq Kcl) 1,000 mls @ 100 mls /hr IV .Q10H [facility] Last Admin: 10/01/18 22:48 Dose: 1,000 mls Acetaminophen 1,000 mg/ Device 100 mls @ 400 mls/hr IVPB Q6H [facility] Stop: 10/03/18 01:01 Last Admin: 10/02/18 06:34 Dose: 100 mls Ketorolac Tromethamine (Toradol) 15 mg IVP Q6HR [facility] Stop: 10/06/18 12:01 Last Admin: 10/02/18 06:33 Dose: 15 mg Labetalol HCl (Normodyne) 20 mg SLOW IVP Q4H PRN PRN Reason: SBP > 180 and HR >/= 70 Mineral Oil/White Petrolatum (Eucerin Cream) 0 gm TOP BIDPRN PRN PRN Reason: Dry Skin Morphine Sulfate (Morphine) 4 mg SLOW IVP Q4H PRN PRN Reason: Severe Pain (7-10) Last Admin: 10/01/18 16:22 Dose: 4 mg Ondansetron HCl (Zofran Odt) 4 mg SL Q6H PRN PRN Reason: Nausea/Vomiting Ondansetron HCl (Zofran) 4 mg IVP Q6H PRN PRN Reason: Nausea/Vomiting Last Admin: 10/01/18 12:48 Dose: 4 mg Pantoprazole Sodium (Protonix) 40 mg IVP Q12HR [facility] Last Admin: 10/02/18 09:02 Dose: 40 mg Promethazine HCl (Phenergan) 25 mg IM/IV Q6H PRN PRN Reason: Nausea 2nd line Last Admin: 10/01/18 03:33 Dose: 25 mg Sodium Chloride ([place] Nasal [place] 0.65%) 0 ml EA NARE QIDPRN PRN PRN Reason: Nasal Congestion Sodium Chloride (Flush - Normal Saline) 10 ml IVF Q12HR [facility] Last Admin: 10/02/18 09:02 Dose: 10 ml Sodium Chloride (Flush - Normal Saline) 10 ml IVF PRN PRN PRN Reason: Saline Flush Last Admin: 10/01/18 03:33 Dose: 10 ml
[2018-10-02] MEDS: D5 1/2 NS w/20 mEq KCL 1,000 ML IV SCH ×2 (09:50→20:58)
[2018-10-02] MEDS ORDERED: Magnesium Sulfate 2 GM in Sodium Chloride 0.9% 100 ML IVPB SCH (14:45)
[2018-10-02] MEDS ORDERED: POTASSIUM PHOSPHATE IVPB SCH (14:45)
[2018-10-02] MEDS ORDERED: MAGNESIUM SULFATE IVPB SCH (14:45)
[2018-10-02] MEDS ORDERED: [UNRECOGNIZED DRUG - OTHER] IVPB SCH (14:45)
--- NOTE | 2018-10-02 15:01 | PRG ---
DATE OF SERVICE: 10/02/2018 SUBJECTIVE: Ms. Gamble is a 78-year-old woman, postop day #1, status post repair of large esophageal hernia as well as adhesiolysis for acute small bowel obstruction. The patient is awake and alert, reporting adequate pain control. She is ambulating with Physical Therapy this morning with modest difficulty. She denies any flatus. OBJECTIVE: VITAL SIGNS: Include blood pressure 122/75, pulse is 80, respiratory rate is 15, temperature is 98 degrees Fahrenheit, and oxygen saturation is 97% on room air. HEENT: Reveals normocephalic and atraumatic. Pupils are equal, round, reactive to light and accommodation. Extraocular muscles are intact bilaterally. No scleral icterus is present. Oral mucosa is pink and moist. No lesions are noted. NECK: Supple. No palpable lymphadenopathy or thyromegaly present. HEART: Reveals regular rate and rhythm. No murmurs or gallops auscultated. LUNGS: Clear to auscultation bilaterally. Breathing, regular and nonlabored. ABDOMEN: Soft with incisional tenderness to palpation. Incision otherwise is intact, clean, dry. Gastrostomy site has some mild no drainage around the tube exit. NEUROLOGIC: Reveals no focal deficits present. Gastrostomy tube has returned 250 mL of clear gastric effluent. LABORATORY FINDINGS: Today includes a CBC with 5800 white blood cells, hemoglobin and hematocrit 12.3 and 41.2 respectively. Platelet count 168,000. Metabolic profile; sodium is 143, potassium is 3.9, chloride is 115, bicarb is 22, BUN 16, creatinine is 0.63, glucose is 127, magnesium is 1.7, and phosphorus is 2.6. IMPRESSION: 1. Postoperative day #1. Status post exploratory laparotomy with repair of large esophageal hernia as well as adhesiolysis for small bowel obstruction. 2. . PLAN: 1. Increase activity per Physical and Occupational therapy. 2. Correct abnormal electrolytes. 3. Discontinue Reddy catheterization and initiate clear liquid diet as tolerated. 4. Above findings and plan discussed with the patient, who indicates understanding of information given. I have answered her questions. Job ID: [id number]
[2018-10-02] MEDS: Morphine 4 MG/ML VIAL SLOW IVP PRN (19:27)
[2018-10-02] MEDS: Ondansetron PF 4 MG/2 ML Vial IVP PRN (20:57)
[2018-10-03] MEDS: Acetaminophen 1,000 MG in Premix Bag 1 BAG IVPB SCH (00:04)
[2018-10-03] MEDS: D5 1/2 NS w/20 mEq KCL 1,000 ML IV SCH ×3 (04:14→19:49)
[2018-10-03 05:06] LABS: Anion Gap 10 mmol/L (10-20); BUN (Urea Nitrogen) 14 mg/dL (9.8-20.1); Calc. Creatinine Clearance 101 mL/min (70-130); Calcium 9.2 mg/dL (7.8-10.44); Carbon Dioxide 24 mmol/L (23-31); Chloride 112 mmol/L (98-107); Estimated GFR-MDRD 87; Glucose 123 mg/dL (83-110); Magnesium 1.9 mg/dL (1.6-2.6); Potassium 3.8 mmol/L (3.5-5.1); Sodium 142 mmol/L (136-145)
[2018-10-03] MEDS: Ondansetron PF 4 MG/2 ML Vial IVP PRN (05:10)
[2018-10-03] MEDS: Ketorolac Tromethamine 30 MG/ML VIAL IVP SCH ×3 (05:10→17:46)
[2018-10-03 05:21] LABS: Band 11 % (5-11); Hemoglobin 11.6 g/dL (12.0-16.0); Lymphocytes 16 % (21-51); MDiff Complete? YES; Mean Corpuscular HGB CONC 30.9 g/dL (32.0-36.0); Mean Corpuscular Volume 93.9 fL (78.0-98.0); Mean Platelet Volume 11.1 fL (7.4-10.4); Monocytes 5 % (0-10); Neutrophil 68 % (42-75); Platelet Count 169 thou/uL (130-400); Platelet Morphology Comment Appears Adequate; RBC Morphology Normal; Red Blood Cell (RBC) Count 3.99 mill/uL (4.20-5.40); White Blood Cell (WBC) Count 6.7 thou/uL (4.8-10.8)
[2018-10-03] MEDS: Enoxaparin Sodium 40 MG/0.4 ML SYRINGE SC SCH (08:54)
[2018-10-03] MEDS: Pantoprazole 40 MG VIAL IVP SCH ×2 (08:54→19:48)
[2018-10-03] MEDS: Promethazine HCl 25 MG/ML VIAL IM/IV PRN (10:42)
--- NOTE | 2018-10-03 11:12 | PDOC.PN ---
- Subjective Encounter Start Date: 10/03/18 Encounter Start Time: 08:30 pt had nausea and vomiting last night, she is not passing gas yet, no pain - Objective Resuscitation Status - Order Detail: 09/30/18 07:12 Resuscitation Status Routine Resuscitation Status: FULL: Full Resuscitation MAR Reviewed: Yes Vital Signs & Weight: Vital Signs (12 hours) Temp Pulse Resp BP Pulse Ox 10/03/18 08:42 97.7 F 88 16 139/81 91 L 10/03/18 08:00 91 L 10/03/18 04:14 97.7 F 90 16 160/80 H 92 L 10/03/18 00:00 98.2 F 98 16 134/83 91 L Weight Admit Weight 186 lb 15.936 oz Weight 198 lb 6.4 oz Most Recent Monitor Data Heart Rate from ECG 94 NIBP 141/65 NIBP BP-Mean 90 Respiration from ECG 16 SpO2 96 I&O: 10/02/18 10/03/18 10/04/18 06:59 06:59 06:59 Intake Total 930 Output Total 300 Balance 630 Result Diagrams: 10/03/18 04:36 10/03/18 04:35 Radiology Reviewed by me: Yes Phys Exam - Physical Examination Constitutional: NAD HEENT: PERRLA, moist MMs, sclera anicteric Neck: no JVD, supple j-tube+ Respiratory: no wheezing, no rales, no rhonchi Cardiovascular: RRR, no significant murmur, no rub Gastrointestinal: soft, no distention surgical site with dressing Musculoskeletal: no edema, pulses present Neurological: non-focal, normal sensation, moves all 4 limbs Lymphatic: no nodes Psychiatric: normal affect, A&O x 3 Skin: no rash, normal turgor Dx/Plan (1) SBO (small bowel obstruction) Code(s): K56.609 - UNSP INTESTNL OBST, UNSP TO PARTIAL VERSUS COMPLETE OBST Status: Acute Comment: s/p surgical repair (2) Diverticulosis of colon Code(s): K57.30 - DVRTCLOS OF LG INT W/O PERFORATION OR ABSCESS W/O BLEEDING Status: Chronic (3) Hiatal hernia Code(s): K44.9 - DIAPHRAGMATIC HERNIA WITHOUT OBSTRUCTION OR GANGRENE Status: Chronic Comment: s/p surgical repair (4) Obesity (BMI 30.0-34.9) Code(s): E66.9 - OBESITY, UNSPECIFIED Status: Chronic (5) Hypokalemia Code(s): E87.6 - HYPOKALEMIA Status: Acute (6) Hypomagnesemia Code(s): E83.42 - HYPOMAGNESEMIA Status: Acute (7) UTI (urinary tract infection) Status: Acute - Plan cont current plan of care, continue antibiotics, PT/OT * continue levaquin * post operative care as per surgeon, today upper GI series with air contrast * continue feeding as tolerated * medication reviewed as below * symptomatic treatment * start PT/OT and will need rehab on discharge. Review of Systems - Review of Systems Constitutional: weakness. negative: fever, chills, sweats, malaise, other ENT: negative: Ear Pain, Ear Discharge, Nose Pain, Nose Discharge, Nose Congestion, Mouth Pain, Mouth Swelling, Throat Pain, Throat Swelling, Other Respiratory: negative: Cough, Dry, Shortness of Breath, Hemoptysis, SOB with Excertion, Pleuritic Pain, Sputum, Wheezing Cardiovascular: negative: chest pain, palpitations, orthopnea, paroxysmal nocturnal dyspnea, edema, light headedness, other Gastrointestinal: Nausea, Vomiting. negative: Abdominal Pain, Diarrhea, Constipation, Melena, Hematochezia, Other Genitourinary: negative: Dysuria, Frequency, Incontinence, Hematuria, Retention , Other Musculoskeletal: negative: Neck Pain, Shoulder Pain, Arm Pain, Back Pain, Hand Pain, Leg Pain, Foot Pain, Other - Medications/Allergies Allergies/Adverse Reactions: Allergies Allergy/AdvReac Type Severity Reaction Status Date / Time codeine Allergy Severe Verified 05/14/17 16:21 Medications: Current Medications Albuterol/Ipratropium (Duoneb) 3 ml NEB Q6H PRN PRN Reason: SOB &/or Wheezing Artificial Tears (Tears Naturale) 2 drop EA EYE PRN PRN PRN Reason: Dry Eyes Bisacodyl (Dulcolax) 10 mg [place] DAILYPRN PRN PRN Reason: Constipation Enoxaparin Sodium (Lovenox) 40 mg SC 0900 [facility] Last Admin: 10/03/18 08:54 Dose: 40 mg Hydralazine HCl (Apresoline) 10 mg SLOW IVP Q4H PRN PRN Reason: SBP > 180 and HR < 70 Potassium Chloride/Dextrose/Sod Cl (D5 1/2 Ns W/20 Meq Kcl) 1,000 mls @ 100 mls /hr IV .Q10H [facility] Last Admin: 10/03/18 04:14 Dose: Not Given Levofloxacin 500 mg/ Device 100 mls @ 100 mls/hr IVPB Q24HR [facility] Stop: 10/05/18 09:59 Last Admin: 10/03/18 08:55 Dose: 100 mls Ketorolac Tromethamine (Toradol) 15 mg IVP Q6HR [facility] Stop: 10/06/18 12:01 Last Admin: 10/03/18 05:10 Dose: 15 mg Labetalol HCl (Normodyne) 20 mg SLOW IVP Q4H PRN PRN Reason: SBP > 180 and HR >/= 70 Mineral Oil/White Petrolatum (Eucerin Cream) 0 gm TOP BIDPRN PRN PRN Reason: Dry Skin Morphine Sulfate (Morphine) 4 mg SLOW IVP Q4H PRN PRN Reason: Severe Pain (7-10) Last Admin: 10/02/18 19:27 Dose: 4 mg Ondansetron HCl (Zofran Odt) 4 mg SL Q6H PRN PRN Reason: Nausea/Vomiting Ondansetron HCl (Zofran) 4 mg IVP Q6H PRN PRN Reason: Nausea/Vomiting Last Admin: 10/03/18 05:10 Dose: 4 mg Pantoprazole Sodium (Protonix) 40 mg IVP Q12HR [facility] Last Admin: 10/03/18 08:54 Dose: 40 mg Promethazine HCl (Phenergan) 25 mg IM/IV Q6H PRN PRN Reason: Nausea 2nd line Last Admin: 10/03/18 10:42 Dose: 25 mg Sodium Chloride ([place] Nasal [place] 0.65%) 0 ml EA NARE QIDPRN PRN PRN Reason: Nasal Congestion Sodium Chloride (Flush - Normal Saline) 10 ml IVF Q12HR [facility] Last Admin: 10/02/18 20:58 Dose: Not Given Sodium Chloride (Flush - Normal Saline) 10 ml IVF PRN PRN PRN Reason: Saline Flush Last Admin: 10/01/18 03:33 Dose: 10 ml
[2018-10-03] MEDS: Morphine 4 MG/ML VIAL SLOW IVP PRN (11:32)
--- NOTE | 2018-10-03 13:07 | RAD ---
LIMITED UPPER GI: HISTORY: The patient is postop hernia repair. FINDINGS: An NG tube is in place with a Dobhoff type tube noted. The tip overlies the left upper quadrant and probably resides in the proximal jejunum. The patient swallowed 15 mL of Gastrografin around the indwelling NG tube. Contrast flowed into the stomach without difficulty. There was no evidence of extravasation. No mucosal abnormality seen. T he gastric mucosa partially opacifies and appears unremarkable. GE reflux is noted. There is contrast refluxed into the esophagus on the post procedure overhead stacey ges. IMPRESSION: Postoperative changes. An NG tube is in place, as noted above. Prominent gastroesophageal reflux is documented on overhead images, taken post procedure. POS: KIZZY
[2018-10-03] MEDS ORDERED: GASTROGRAFIN 30 ML BOT ONE (16:36)
--- NOTE | 2018-10-03 16:37 | PRG ---
DATE OF SERVICE: 10/03/2018 SUBJECTIVE: Ms. Gamble is a 78-year-old woman postop day #2 status post repair of a large esophageal hernia as well as adhesiolysis for acute small-bowel obstruction. The patient is awake and alert, reporting some mild abdominal pain and distention. The patient continues on trickle feeds and remains on a clear liquid diet. The patient continues to deny any flatus and has not had a bowel movement. OBJECTIVE: VITAL SIGNS: Temperature 97.7, pulse 80, respirations 16, SpO2 of 94% on room air, blood pressure 139/89. GENERAL: The patient is awake and alert, and lying in bed. RESPIRATORY: Breathing is regular and nonlabored, in no distress. HEART: Reveals regular rate and rhythm. ABDOMEN: Soft with incisional tenderness to palpation. Incision otherwise intact, clean and dry. Gastrostomy site has some mild drainage around the tube exit. NEUROLOGIC: The patient with no focal neuro deficits. The patient continues to have a low urine output. LABORATORY DATA: WBC 6.7, RBC 3.99, hemoglobin 11.6, hematocrit 37.5, platelets 169. Sodium 142, potassium 3.8, chloride 112, CO2 of 24, anion gap 10, BUN 14, creatinine 0.66, estimated GFR 87, glucose 123, calcium 9.2, and magnesium 1.9. DIAGNOSTICS: Upper GI series without air contrast. Impression, NG tube in place as noted. The patient swallowed 15 mL of Gastrografin around the indwelling NG tube and contrast was flowed into the stomach without any difficulty. There was prominent gastroesophageal reflux. IMPRESSION: 1. Postoperative day #2 status post exploratory laparotomy with repair of large esophageal hernia as well as adhesiolysis of the small bowel obstruction. 2. Urine culture positive for Escherichia coli. PLAN: 1. We will increase the patient's IV fluids, D5 and half normal saline with 20 of KCl 125 mL/hr. 2. The patient was placed on Levaquin for 3 days for positive urine culture with E. coli. We will continue pain regimen. Continue trickle feeds as tolerated. We will continue comfort measures and encourage the patient to get up from the chair more. The patient was examined with Dr. Perez this morning during morning rounds. Job ID: [id number] [facility]
[2018-10-03] MEDS ORDERED: Melatonin 3 MG TAB PO PRN (23:14)
[2018-10-04] MEDS: Promethazine HCl 25 MG/ML VIAL IM/IV PRN (01:10)
[2018-10-04] MEDS: Ketorolac Tromethamine 30 MG/ML VIAL IVP SCH ×5 (01:50→23:17)
[2018-10-04] MEDS: Ondansetron PF 4 MG/2 ML Vial IVP PRN ×2 (03:24→09:09)
[2018-10-04] MEDS ORDERED: Scopolamine 1.5 mg/72 hour Patch TOP SCH (04:00)
[2018-10-04] MEDS: D5 1/2 NS w/20 mEq KCL 1,000 ML IV SCH ×3 (04:00→21:23)
[2018-10-04 08:05] LABS: #Eosinphils 0.2 thou/uL (0.0-0.7); #Lymphocytes 1.5 thou/uL (1.20-3.40); #Monocytes 0.7 thou/uL (0.11-0.59); #Neutrophils 5.5 thou/uL (1.40-6.50); %Eosinophils 2.2 % (0.0-10.0); %Lymphocytes 18.7 % (21.0-51.0); %Monocytes 8.3 % (0.0-10.0); %Neutrophils 70.8 % (42.0-75.0); Hemoglobin 12.9 g/dL (12.0-16.0); Mean Corpuscular HGB CONC 31.6 g/dL (32.0-36.0); Mean Corpuscular Hemoglobin 28.8 pg (27.0-31.0); Mean Platelet Volume 11.4 fL (7.4-10.4); Platelet Count 218 thou/uL (130-400); RBC Distribution Width 11.9 % (11.5-14.5); Red Blood Cell (RBC) Count 4.48 mill/uL (4.20-5.40); White Blood Cell (WBC) Count 7.8 thou/uL (4.8-10.8)
[2018-10-04 08:21] LABS: Anion Gap 8 mmol/L (10-20); BUN (Urea Nitrogen) 14 mg/dL (9.8-20.1); Calc. Creatinine Clearance 98 mL/min (70-130); Calcium 9.4 mg/dL (7.8-10.44); Carbon Dioxide 24 mmol/L (23-31); Chloride 110 mmol/L (98-107); Estimated GFR-MDRD 84; Glucose 140 mg/dL (83-110); Magnesium 1.3 mg/dL (1.6-2.6); Potassium 4.2 mmol/L (3.5-5.1); Sodium 138 mmol/L (136-145)
[2018-10-04] MEDS ORDERED: Sodium Chloride 0.9% 500 ML IV SCH (08:30)
[2018-10-04 08:42] LABS: Phosphorus 1.8 mg/dL (2.3-4.7)
[2018-10-04] MEDS ORDERED: Potassium Phosphate 30 MMOL, Magnesium Sulfate 4 GM in Sodium Chloride 0.9% 250 ML 250 ML IVPB SCH (09:00)
[2018-10-04] MEDS ORDERED: Magnesium 2 GM/50 ML 4 GM in Premix Bag 1 BAG IVPB SCH (09:00)
[2018-10-04] MEDS: Morphine 4 MG/ML VIAL SLOW IVP PRN ×4 (09:09→20:53)
[2018-10-04] MEDS: Enoxaparin Sodium 40 MG/0.4 ML SYRINGE SC SCH (09:13)
[2018-10-04] MEDS: Pantoprazole 40 MG VIAL IVP SCH ×2 (09:14→20:45)
[2018-10-04] MEDS ORDERED: Magnesium Sulfate 3 GM in Sodium Chloride 0.9% 100 ML IVPB SCH (09:45)
[2018-10-04 10:09] LABS: Free T4 (Free Thyroxine) 1.3 ng/dL (0.70-1.48); Thyroid Stimulating Hormone 1.6742 uIU/mL (0.35-4.94)
--- NOTE | 2018-10-04 10:31 | PDOC.PN ---
- Subjective Encounter Start Date: 10/04/18 Encounter Start Time: 08:20 last night pt had recurrent vomiting, this morning she is tachycardic, tachypnea , she is feeling 'terrible", she is hypotensive - Objective Resuscitation Status - Order Detail: 09/30/18 07:12 Resuscitation Status Routine Resuscitation Status: FULL: Full Resuscitation MAR Reviewed: Yes Vital Signs & Weight: Vital Signs (12 hours) Temp Pulse Resp BP Pulse Ox 10/04/18 09:00 97.7 F 10/04/18 08:00 95 10/04/18 07:19 97.7 F 18 105/77 92 L 10/04/18 04:01 98.3 F 89 22 H 145/79 H 92 L 10/04/18 00:12 98.5 F 104 H 16 137/85 92 L Weight Admit Weight 186 lb 15.936 oz Weight 198 lb 6.4 oz Most Recent Monitor Data Heart Rate from ECG 98 NIBP 113/56 NIBP BP-Mean 75 Respiration from ECG 20 SpO2 96 I&O: 10/03/18 10/04/18 10/05/18 06:59 06:59 06:59 Intake Total 930 1520 100 Output Total 300 2550 400 Balance 630 -1030 -300 Result Diagrams: 10/04/18 07:50 10/04/18 07:50 EKG Reviewed by me: Yes (svt) Phys Exam - Physical Examination Constitutional: NAD weak HEENT: PERRLA, sclera anicteric Neck: no JVD, supple Respiratory: no wheezing, no rales, no rhonchi Cardiovascular: RRR, no significant murmur, no rub tachycardia Gastrointestinal: soft surgical site with dressing Musculoskeletal: no edema, pulses present Neurological: non-focal, normal sensation Lymphatic: no nodes Psychiatric: normal affect Skin: no rash, normal turgor Dx/Plan (1) SBO (small bowel obstruction) Code(s): K56.609 - UNSP INTESTNL OBST, UNSP TO PARTIAL VERSUS COMPLETE OBST Status: Acute Comment: s/p surgical repair (2) Diverticulosis of colon Code(s): K57.30 - DVRTCLOS OF LG INT W/O PERFORATION OR ABSCESS W/O BLEEDING Status: Chronic (3) Hiatal hernia Code(s): K44.9 - DIAPHRAGMATIC HERNIA WITHOUT OBSTRUCTION OR GANGRENE Status: Chronic Comment: s/p surgical repair (4) Obesity (BMI 30.0-34.9) Code(s): E66.9 - OBESITY, UNSPECIFIED Status: Chronic (5) Hypokalemia Code(s): E87.6 - HYPOKALEMIA Status: Acute (6) Hypomagnesemia Code(s): E83.42 - HYPOMAGNESEMIA Status: Acute (7) UTI (urinary tract infection) Status: Acute (8) Hypophosphatemia Code(s): E83.39 - OTHER DISORDERS OF PHOSPHORUS METABOLISM Status: Acute (9) SVT (supraventricular tachycardia) Code(s): I47.1 - SUPRAVENTRICULAR TACHYCARDIA Status: Acute - Plan cont current plan of care * will give NS 500 ml bolus * will give one time dose of cardizem * cardiology will be consulted * her SVT may be stress induced, will check TSH and free T4, will obtain echo * transfer to IMCU for close monitoring * electrolytes replaced * keep NPO for now * medication reviewed as below * symptomatic treatment. Review of Systems - Review of Systems Constitutional: weakness, malaise. negative: fever, chills, sweats, other ENT: negative: Ear Pain, Ear Discharge, Nose Pain, Nose Discharge, Nose Congestion, Mouth Pain, Mouth Swelling, Throat Pain, Throat Swelling, Other Respiratory: negative: Cough, Dry, Shortness of Breath, Hemoptysis, SOB with Excertion, Pleuritic Pain, Sputum, Wheezing Cardiovascular: negative: chest pain, palpitations, orthopnea, paroxysmal nocturnal dyspnea, edema, light headedness, other Gastrointestinal: Nausea, Vomiting. negative: Abdominal Pain, Diarrhea, Constipation, Melena, Hematochezia, Other Genitourinary: negative: Dysuria, Frequency, Incontinence, Hematuria, Retention , Other Musculoskeletal: negative: Neck Pain, Shoulder Pain, Arm Pain, Back Pain, Hand Pain, Leg Pain, Foot Pain, Other - Medications/Allergies Allergies/Adverse Reactions: Allergies Allergy/AdvReac Type Severity Reaction Status Date / Time codeine Allergy Severe Verified 05/14/17 16:21 Medications: Current Medications Albuterol/Ipratropium (Duoneb) 3 ml NEB Q6H PRN PRN Reason: SOB &/or Wheezing Artificial Tears (Tears Naturale) 2 drop EA EYE PRN PRN PRN Reason: Dry Eyes Bisacodyl (Dulcolax) 10 mg [place] DAILYPRN PRN PRN Reason: Constipation Diltiazem HCl (Cardizem) 15 mg SLOW IVP ONE [facility] Stop: 10/04/18 10:45 Enoxaparin Sodium (Lovenox) 40 mg SC 0900 [facility] Last Admin: 10/04/18 09:13 Dose: 40 mg Hydralazine HCl (Apresoline) 10 mg SLOW IVP Q4H PRN PRN Reason: SBP > 180 and HR < 70 Levofloxacin 500 mg/ Device 100 mls @ 100 mls/hr IVPB Q24HR [facility] Stop: 10/05/18 09:59 Last Admin: 10/04/18 09:14 Dose: 100 mls Potassium Phosphate 30 mmol/Magnesium Sulfate 4 gm/ Sodium Chloride 268 mls @ 43.773 mls/hr IVPB ONE [facility] Stop: 10/04/18 15:00 Potassium Chloride/Dextrose/Sod Cl (D5 1/2 Ns W/20 Meq Kcl) 1,000 mls @ 75 mls/ hr IV .[id number] [facility] Last Admin: 10/04/18 09:13 Dose: 1,000 mls Ketorolac Tromethamine (Toradol) 15 mg IVP Q6HR [facility] Stop: 10/06/18 12:01 Last Admin: 10/04/18 05:03 Dose: 15 mg Labetalol HCl (Normodyne) 20 mg SLOW IVP Q4H PRN PRN Reason: SBP > 180 and HR >/= 70 Melatonin (Melatonin) 3 mg PO HS PRN PRN Reason: Insomnia Mineral Oil/White Petrolatum (Eucerin Cream) 0 gm TOP BIDPRN PRN PRN Reason: Dry Skin Morphine Sulfate (Morphine) 4 mg SLOW IVP Q4H PRN PRN Reason: Severe Pain (7-10) Last Admin: 10/04/18 09:09 Dose: 4 mg Ondansetron HCl (Zofran Odt) 4 mg SL Q6H PRN PRN Reason: Nausea/Vomiting Ondansetron HCl (Zofran) 4 mg IVP Q6H PRN PRN Reason: Nausea/Vomiting Last Admin: 10/04/18 09:09 Dose: 4 mg Pantoprazole Sodium (Protonix) 40 mg IVP Q12HR [facility] Last Admin: 10/04/18 09:14 Dose: 40 mg Promethazine HCl (Phenergan) 25 mg IM/IV Q6H PRN PRN Reason: Nausea 2nd line Last Admin: 10/04/18 01:10 Dose: 25 mg Sodium Chloride ([place] Nasal [place] 0.65%) 0 ml EA NARE QIDPRN PRN PRN Reason: Nasal Congestion Sodium Chloride (Flush - Normal Saline) 10 ml IVF Q12HR [facility] Last Admin: 10/03/18 19:49 Dose: Not Given Sodium Chloride (Flush - Normal Saline) 10 ml IVF PRN PRN PRN Reason: Saline Flush Last Admin: 10/01/18 03:33 Dose: 10 ml
--- NOTE | 2018-10-04 17:51 | PRG ---
DATE OF SERVICE: 10/04/2018 SUBJECTIVE: The patient was seen this morning in the ICU. Nursing reported the patient very tachycardic with a rate of 170s to 180s, which her hospitalist team reported it was SVT. On her arrival to the ICU, the patient got a new IV and subsequently morphine and her rate at the time of our evaluation was in the one teens. The patient reported significant abdominal pain and distention at that time. She has not passed flatus or had a bowel movement yet. She had been on IV fluids and a clear liquid diet. She had an NJ tube at that time as well. Upon our evaluation, the J-tube was connected to a Reddy in place to gravity and the tube feeds were held. The patient was also made n.p.o. and IV fluids were decreased to 75 an hour. The patient was seen again in the afternoon by Dr. Hawk and myself and was doing much better. She was sitting up in a chair and was planning to walk this afternoon. She reports no BM or flatus during the day. OBJECTIVE: VITAL SIGNS: Blood pressure 116/65, heart rate 81, respirations 18, temperature 97.8, oxygen saturation 100% on room air. GENERAL: Uncomfortable appearing elderly female, sitting up in bed with a distended abdomen. RESPIRATORY: Clear breath sounds bilaterally. Equal chest rise and fall. No significant signs of respiratory distress. CARDIAC: Regular rate and rhythm. No murmurs, gallops, or rubs. GI: Abdomen is soft, distended with active bowel sounds. J-tube in place with dark output. NJ tube in place with no feeding at this time. EXTREMITIES: Gross motor and sensation intact times all 4 extremities. 2+ pulses in all extremities. No significant swelling noted. LABORATORY FINDINGS: White count 7.8, hemoglobin 12.9, hematocrit 40.8, and platelets 218. Sodium 138, potassium 4.8, chloride 101, carbon dioxide 26, BUN 16, creatinine 0.68, glucose 140, phos 1.8, magnesium 1.7. DIAGNOSTIC FINDINGS: There are no diagnostic findings to report. ASSESSMENT: 1. Hiatal hernia, status post plication of diaphragmatic hernia, gastropexy and placement of feeding NJ tube. Small bowel obstruction, status post adhesiolysis, ileus, persistent. 2. Urinary tract infection, escherichia coli, currently on levofloxacin x3 days. 3. Supraventricular tachycardia, resolved. PLAN: The patient to remain in the ICU overnight and will likely go back to the regular surgical floor tomorrow pending she does not have any arrhythmias. Can continue current pain regimen. We will continue IV fluids, D5 and half-normal saline 20 of K at 75 an hour. We will continue n.p.o. for now. We will hold tube feeds. Continue Reddy to J-tube. We will give 500 mL of 5% albumin x1 in the ICU for low urinary output and hypotension. Continue to monitor for signs of return of bowel function. Continue to ambulate. The patient was discussed with Carine today after rounds and the patient was also seen with Dr. Hawk this afternoon. Job ID: [id number]
--- NOTE | 2018-10-04 18:20 | EKG ---
Test Reason : Blood Pressure : / mmHG Vent. Rate : 159 BPM Atrial Rate : 041 BPM P-R Int : 000 ms QRS Dur : 082 ms QT Int : 286 ms P-R-T Axes : 000 034 -50 degrees QTc Int : 465 ms Regular narrow complex tachycardia Nonspecific ST and T wave abnormality Abnormal ECG No previous ECGs available Confirmed by DR. Arpit REZA ([id number]) on 10/04/2018 6:19:22 PM Referred By: [email or web address] Confirmed By:DR. Arpit REZA
[2018-10-05 05:15] LABS: #Eosinphils 0.3 thou/uL (0.0-0.7); #Lymphocytes 1.4 thou/uL (1.20-3.40); #Monocytes 0.5 thou/uL (0.11-0.59); #Neutrophils 2.9 thou/uL (1.40-6.50); %Basophils 0.6 % (0.0-1.0); %Eosinophils 6.6 % (0.0-10.0); %Lymphocytes 26.5 % (21.0-51.0); %Monocytes 9.7 % (0.0-10.0); %Neutrophils 56.6 % (42.0-75.0); Hemoglobin 10.9 g/dL (12.0-16.0); Mean Corpuscular HGB CONC 30.3 g/dL (32.0-36.0); Mean Corpuscular Hemoglobin 28.4 pg (27.0-31.0); Mean Corpuscular Volume 93.8 fL (78.0-98.0); Mean Platelet Volume 11.6 fL (7.4-10.4); Platelet Count 112 thou/uL (130-400); Red Blood Cell (RBC) Count 3.85 mill/uL (4.20-5.40); White Blood Cell (WBC) Count 5.2 thou/uL (4.8-10.8)
[2018-10-05 05:34] LABS: Anion Gap 9 mmol/L (10-20); BUN (Urea Nitrogen) 13 mg/dL (9.8-20.1); Calc. Creatinine Clearance 112 mL/min (70-130); Calcium 8.9 mg/dL (7.8-10.44); Carbon Dioxide 23 mmol/L (23-31); Chloride 112 mmol/L (98-107); Estimated GFR-MDRD Greater than 90; Glucose 87 mg/dL (83-110); Magnesium 1.8 mg/dL (1.6-2.6); Phosphorus 2.8 mg/dL (2.3-4.7); Potassium 4.5 mmol/L (3.5-5.1); Sodium 139 mmol/L (136-145)
[2018-10-05] MEDS: Ketorolac Tromethamine 30 MG/ML VIAL IVP SCH ×3 (05:49→17:56)
[2018-10-05 06:39] VITALS: BMI 31.6
[2018-10-05] MEDS ORDERED: Potassium Phosphate 15 MMOL in Sodium Chloride 0.9% 250 ML 250 ML IVPB SCH (08:00)
[2018-10-05] MEDS: Pantoprazole 40 MG VIAL IVP SCH ×2 (08:24→21:07)
[2018-10-05] MEDS: Enoxaparin Sodium 40 MG/0.4 ML SYRINGE SC SCH (08:32)
[2018-10-05] MEDS ORDERED: Sodium Chloride 0.9% 500 ML IV SCH (08:45)
[2018-10-05] MEDS: D5 1/2 NS w/20 mEq KCL 1,000 ML IV SCH ×3 (10:07→21:14)
--- NOTE | 2018-10-05 11:22 | PDOC.PN ---
- Subjective Encounter Start Date: 10/05/18 Encounter Start Time: 09:30 today pt is doing well, no vomiting and her pain is controlled Patient seen and examined. No new complaints. No overnight events - Objective Resuscitation Status - Order Detail: 09/30/18 07:12 Resuscitation Status Routine Resuscitation Status: FULL: Full Resuscitation MAR Reviewed: Yes Vital Signs & Weight: Vital Signs (12 hours) Temp Pulse Ox 10/05/18 08:00 99 10/05/18 03:00 98.0 F Weight Admit Weight 186 lb 15.936 oz Weight 190 lb 4.143 oz Most Recent Monitor Data Heart Rate from ECG 84 NIBP 123/55 NIBP BP-Mean 77 Respiration from ECG 20 SpO2 99 I&O: 10/04/18 10/05/18 10/06/18 06:59 06:59 06:59 Intake Total 1520 2364 821 Output Total 2550 1325 35 Balance -1030 1039 786 Result Diagrams: 10/05/18 04:23 10/05/18 04:23 Radiology Reviewed by me: Yes (echo noted) EKG Reviewed by me: Yes (nsr) Phys Exam - Physical Examination Constitutional: NAD HEENT: PERRLA, moist MMs, sclera anicteric Neck: no JVD, supple Respiratory: no wheezing, no rales, no rhonchi Cardiovascular: RRR, no significant murmur, no rub Gastrointestinal: soft, non-tender, no distention, positive bowel sounds surgical site with dressing Musculoskeletal: no edema, pulses present Neurological: non-focal, normal sensation Lymphatic: no nodes Psychiatric: normal affect, A&O x 3 Skin: no rash, normal turgor Dx/Plan (1) SBO (small bowel obstruction) Code(s): K56.609 - UNSP INTESTNL OBST, UNSP TO PARTIAL VERSUS COMPLETE OBST Status: Acute Comment: s/p surgical repair (2) Diverticulosis of colon Code(s): K57.30 - DVRTCLOS OF LG INT W/O PERFORATION OR ABSCESS W/O BLEEDING Status: Chronic (3) Hiatal hernia Code(s): K44.9 - DIAPHRAGMATIC HERNIA WITHOUT OBSTRUCTION OR GANGRENE Status: Chronic Comment: s/p surgical repair (4) Obesity (BMI 30.0-34.9) Code(s): E66.9 - OBESITY, UNSPECIFIED Status: Chronic (5) Hypokalemia Code(s): E87.6 - HYPOKALEMIA Status: Acute (6) Hypomagnesemia Code(s): E83.42 - HYPOMAGNESEMIA Status: Acute (7) UTI (urinary tract infection) Status: Acute (8) Hypophosphatemia Code(s): E83.39 - OTHER DISORDERS OF PHOSPHORUS METABOLISM Status: Acute (9) SVT (supraventricular tachycardia) Code(s): I47.1 - SUPRAVENTRICULAR TACHYCARDIA Status: Resolved - Plan cont current plan of care * transfer to surgical floor * continue PT/OT * J-tube feeding * pain control * post operative care as per surgeon * diet advancement as per surgeon * will need swing bed vs rehab on discharge. Review of Systems - Review of Systems ENT: negative: Ear Pain, Ear Discharge, Nose Pain, Nose Discharge, Nose Congestion, Mouth Pain, Mouth Swelling, Throat Pain, Throat Swelling, Other Respiratory: negative: Cough, Dry, Shortness of Breath, Hemoptysis, SOB with Excertion, Pleuritic Pain, Sputum, Wheezing Cardiovascular: negative: chest pain, palpitations, orthopnea, paroxysmal nocturnal dyspnea, edema, light headedness, other Gastrointestinal: negative: Nausea, Vomiting, Abdominal Pain, Diarrhea, Constipation, Melena, Hematochezia, Other Genitourinary: negative: Dysuria, Frequency, Incontinence, Hematuria, Retention , Other Musculoskeletal: negative: Neck Pain, Shoulder Pain, Arm Pain, Back Pain, Hand Pain, Leg Pain, Foot Pain, Other Skin: negative: Rash, Lesions, Shin, Bruising, Other - Medications/Allergies Allergies/Adverse Reactions: Allergies Allergy/AdvReac Type Severity Reaction Status Date / Time codeine Allergy Severe Verified 05/14/17 16:21 Medications: Current Medications Albuterol/Ipratropium (Duoneb) 3 ml NEB Q6H PRN PRN Reason: SOB &/or Wheezing Artificial Tears (Tears Naturale) 2 drop EA EYE PRN PRN PRN Reason: Dry Eyes Bisacodyl (Dulcolax) 10 mg [place] DAILYPRN PRN PRN Reason: Constipation Enoxaparin Sodium (Lovenox) 40 mg SC 0900 [facility] Last Admin: 10/05/18 08:32 Dose: 40 mg Hydralazine HCl (Apresoline) 10 mg SLOW IVP Q4H PRN PRN Reason: SBP > 180 and HR < 70 Potassium Phosphate 15 mmol/ (Sodium Chloride) 255 mls @ 62.5 mls/hr IVPB 0800 [facility] Stop: 10/05/18 12:05 Last Admin: 10/05/18 08:48 Dose: 255 mls Potassium Chloride/Dextrose/Sod Cl (D5 1/2 Ns W/20 Meq Kcl) 1,000 mls @ 120 mls /hr IV .Q8H20M [facility] Last Admin: 10/05/18 10:07 Dose: 1,000 mls Ketorolac Tromethamine (Toradol) 15 mg IVP Q6HR [facility] Stop: 10/06/18 12:01 Last Admin: 10/05/18 05:49 Dose: 15 mg Labetalol HCl (Normodyne) 20 mg SLOW IVP Q4H PRN PRN Reason: SBP > 180 and HR >/= 70 Melatonin (Melatonin) 3 mg PO HS PRN PRN Reason: Insomnia Mineral Oil/White Petrolatum (Eucerin Cream) 0 gm TOP BIDPRN PRN PRN Reason: Dry Skin Morphine Sulfate (Morphine) 4 mg SLOW IVP Q4H PRN PRN Reason: Severe Pain (7-10) Last Admin: 10/04/18 20:53 Dose: 4 mg Ondansetron HCl (Zofran Odt) 4 mg SL Q6H PRN PRN Reason: Nausea/Vomiting Ondansetron HCl (Zofran) 4 mg IVP Q6H PRN PRN Reason: Nausea/Vomiting Last Admin: 10/04/18 09:09 Dose: 4 mg Pantoprazole Sodium (Protonix) 40 mg IVP Q12HR [facility] Last Admin: 10/05/18 08:24 Dose: 40 mg Promethazine HCl (Phenergan) 25 mg IM/IV Q6H PRN PRN Reason: Nausea 2nd line Last Admin: 10/04/18 01:10 Dose: 25 mg Sodium Chloride ([place] Nasal [place] 0.65%) 0 ml EA NARE QIDPRN PRN PRN Reason: Nasal Congestion Sodium Chloride (Flush - Normal Saline) 10 ml IVF Q12HR [facility] Last Admin: 10/05/18 10:07 Dose: 10 ml Sodium Chloride (Flush - Normal Saline) 10 ml IVF PRN PRN PRN Reason: Saline Flush Last Admin: 10/01/18 03:33 Dose: 10 ml
--- NOTE | 2018-10-05 12:43 | PRG ---
DATE OF SERVICE: 10/05/2018 SUBJECTIVE: Ms. Gamble is a 78-year-old woman, postoperative day #4 status post exploratory laparotomy, plication of diaphragmatic crura and gastropexy for large hiatal hernia. Also was adhesiolysis for closed-loop small bowel obstruction. The patient is awake and alert today. She had a brief period of SVT yesterday, which resolved spontaneously without any intervention. She reports adequate pain control this morning. She passed some flatus this morning, but has not had any bowel movement. She has no nausea or vomiting. The gastrostomy tube was placed to gravity drain yesterday and had returned over 1000 mL of slightly bile-tinged effluent. Urinary output is marginal. PHYSICAL EXAMINATION: VITAL SIGNS: This morning include blood pressure of 112/65, pulse is 80, respiratory rate is 16, temperature is 97.4 degrees Fahrenheit, oxygen saturation 100% on 2 L by nasal cannula oxygen. HEENT: Reveals no jugular venous distention noted. HEART: Reveals regular rate and rhythm. No murmurs or gallops auscultated. LUNGS: Clear to auscultation bilaterally. Her breathing is regular, nonlabored. ABDOMEN: Soft with incisional tenderness present. Incision is otherwise clean, dry. No peritoneal signs on examination. NEUROLOGIC: Reveals no focal deficits present. LABORATORY FINDINGS: Today include a CBC with 5200 white blood cells, hemoglobin and hematocrit 10.9 and 36.1 respectively. Platelet count is 112,000. Metabolic profile; sodium 139, potassium 4.5, chloride is 112, bicarb is 23, BUN 13, creatinine 0.60, glucose is 87, magnesium 1.8, phosphorus is 2.8. IMPRESSION: 1. Postoperative day #4 status post exploratory laparotomy and repair of large hiatal hernia with gastropexy. 2. Resolved acute small-bowel obstruction. 3. Resolving adynamic ileus. 4. Resolved acute supraventricular tachycardia. 5. Acute hypomagnesemia. 6. Acute hypophosphatemia. PLAN: 1. Correct abnormal electrolytes. 2. The patient is hemodynamically stable for transfer to general surgical floor. 3. We will increase activity per Physical and Occupational therapy. We will ask Physical Medicine and Rehabilitation to evaluate the patient in anticipation of transfer to inpatient rehabilitation post discharge. 4. Above findings and plan discussed with the patient who indicates understanding of information given. 5. We will resume trophic tube feeds at this time and advance diet once adequate return of bowel function has been ensured. Job ID: [id number]
[2018-10-05] MEDS: Morphine 4 MG/ML VIAL SLOW IVP PRN (22:33)
[2018-10-05] MEDS: Ondansetron PF 4 MG/2 ML Vial IVP PRN (22:41)
[2018-10-06] MEDS: Ketorolac Tromethamine 30 MG/ML VIAL IVP SCH ×3 (05:33→23:06)
[2018-10-06] MEDS: D5 1/2 NS w/20 mEq KCL 1,000 ML IV SCH ×2 (05:37→23:20)
[2018-10-06 06:05] LABS: Anion Gap 10 mmol/L (10-20); BUN (Urea Nitrogen) 8 mg/dL (9.8-20.1); Calc. Creatinine Clearance 111 mL/min (70-130); Carbon Dioxide 24 mmol/L (23-31); Chloride 109 mmol/L (98-107); Estimated GFR-MDRD Greater than 90; Glucose 102 mg/dL (83-110); Magnesium 1.6 mg/dL (1.6-2.6); Phosphorus 2.8 mg/dL (2.3-4.7); Potassium 4.8 mmol/L (3.5-5.1); Sodium 138 mmol/L (136-145)
[2018-10-06] MEDS ORDERED: Magnesium 2 GM/50 ML 4 GM in Premix Bag 1 BAG IVPB SCH (07:30)
[2018-10-06] MEDS ORDERED: Sodium Phosphate 20 MMOL, Magnesium Sulfate 4 GM in Sodium Chloride 0.9% 250 ML 250 ML IVPB SCH (08:30)
[2018-10-06] MEDS: Enoxaparin Sodium 40 MG/0.4 ML SYRINGE SC SCH (08:41)
[2018-10-06] MEDS: Pantoprazole 40 MG VIAL IVP SCH ×2 (08:42→20:14)
--- NOTE | 2018-10-06 10:07 | PDOC.PN ---
- Subjective Encounter Start Date: 10/06/18 Encounter Start Time: 08:30 Patient seen and examined. No new complaints. No overnight events - Objective Resuscitation Status - Order Detail: 09/30/18 07:12 Resuscitation Status Routine Resuscitation Status: FULL: Full Resuscitation MAR Reviewed: Yes Vital Signs & Weight: Vital Signs (12 hours) Temp Pulse Resp BP Pulse Ox 10/06/18 07:30 78 20 94 L 10/06/18 07:26 98.1 F 78 18 126/68 94 L 10/06/18 03:56 98.1 F 81 17 160/81 H 92 L 10/05/18 23:58 98.5 F 89 16 129/67 92 L Weight Admit Weight 186 lb 15.936 oz Weight 190 lb 4.143 oz Most Recent Monitor Data Heart Rate from ECG 84 NIBP 123/55 NIBP BP-Mean 77 Respiration from ECG 20 SpO2 99 I&O: 10/05/18 10/06/18 10/07/18 06:59 06:59 06:59 Intake Total 2364 1901 1440 Output Total 1325 485 400 Balance 1039 1416 1040 Result Diagrams: 10/05/18 04:23 10/06/18 05:20 Phys Exam - Physical Examination Constitutional: NAD HEENT: PERRLA, moist MMs, sclera anicteric j-tube + Neck: no nodes, no JVD, supple Respiratory: no wheezing, no rales, no rhonchi Cardiovascular: RRR, no significant murmur, no rub Gastrointestinal: soft, non-tender, no distention, positive bowel sounds surgical site clean and drain+ Musculoskeletal: no edema, pulses present Neurological: non-focal, normal sensation Lymphatic: no nodes Psychiatric: normal affect, A&O x 3 Skin: no rash, normal turgor Dx/Plan (1) SBO (small bowel obstruction) Code(s): K56.609 - UNSP INTESTNL OBST, UNSP TO PARTIAL VERSUS COMPLETE OBST Status: Acute Comment: s/p surgical repair (2) Diverticulosis of colon Code(s): K57.30 - DVRTCLOS OF LG INT W/O PERFORATION OR ABSCESS W/O BLEEDING Status: Chronic (3) Hiatal hernia Code(s): K44.9 - DIAPHRAGMATIC HERNIA WITHOUT OBSTRUCTION OR GANGRENE Status: Chronic Comment: s/p surgical repair (4) Obesity (BMI 30.0-34.9) Code(s): E66.9 - OBESITY, UNSPECIFIED Status: Chronic (5) Hypokalemia Code(s): E87.6 - HYPOKALEMIA Status: Acute (6) Hypomagnesemia Code(s): E83.42 - HYPOMAGNESEMIA Status: Acute (7) UTI (urinary tract infection) Status: Acute (8) Hypophosphatemia Code(s): E83.39 - OTHER DISORDERS OF PHOSPHORUS METABOLISM Status: Acute (9) SVT (supraventricular tachycardia) Code(s): I47.1 - SUPRAVENTRICULAR TACHYCARDIA Status: Resolved - Plan cont current plan of care, plan discussed w/ family, 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 Review of Systems - Review of Systems ENT: negative: Ear Pain, Ear Discharge, Nose Pain, Nose Discharge, Nose Congestion, Mouth Pain, Mouth Swelling, Throat Pain, Throat Swelling, Other Respiratory: negative: Cough, Dry, Shortness of Breath, Hemoptysis, SOB with Excertion, Pleuritic Pain, Sputum, Wheezing Cardiovascular: negative: chest pain, palpitations, orthopnea, paroxysmal nocturnal dyspnea, edema, light headedness, other Gastrointestinal: Nausea. negative: Vomiting, Abdominal Pain, Diarrhea, Constipation, Melena, Hematochezia, Other Genitourinary: negative: Dysuria, Frequency, Incontinence, Hematuria, Retention , Other Musculoskeletal: negative: Neck Pain, Shoulder Pain, Arm Pain, Back Pain, Hand Pain, Leg Pain, Foot Pain, Other Skin: negative: Rash, Lesions, Shin, Bruising, Other - Medications/Allergies Allergies/Adverse Reactions: Allergies Allergy/AdvReac Type Severity Reaction Status Date / Time codeine Allergy Severe Verified 05/14/17 16:21 Medications: Current Medications Albuterol/Ipratropium (Duoneb) 3 ml NEB Q6H PRN PRN Reason: SOB &/or Wheezing Last Admin: 10/06/18 07:30 Dose: 3 ml Artificial Tears (Tears Naturale) 2 drop EA EYE PRN PRN PRN Reason: Dry Eyes Bisacodyl (Dulcolax) 10 mg [place] DAILYPRN PRN PRN Reason: Constipation Enoxaparin Sodium (Lovenox) 40 mg SC 0900 [facility] Last Admin: 10/06/18 08:41 Dose: 40 mg Hydralazine HCl (Apresoline) 10 mg SLOW IVP Q4H PRN PRN Reason: SBP > 180 and HR < 70 Potassium Chloride/Dextrose/Sod Cl (D5 1/2 Ns W/20 Meq Kcl) 1,000 mls @ 120 mls /hr IV .Q8H20M [facility] Last Admin: 10/06/18 05:37 Dose: 1,000 mls Sodium Phosphate 20 mmol/Magnesium Sulfate 4 gm/ Sodium Chloride 264.6667 mls @ 44.111 mls/hr IVPB 0830 [facility] Stop: 10/06/18 14:29 Last Admin: 10/06/18 09:41 Dose: 264.6667 mls Ketorolac Tromethamine (Toradol) 15 mg IVP Q6HR [facility] Stop: 10/06/18 12:01 Last Admin: 10/06/18 05:33 Dose: 15 mg Labetalol HCl (Normodyne) 20 mg SLOW IVP Q4H PRN PRN Reason: SBP > 180 and HR >/= 70 Melatonin (Melatonin) 3 mg PO HS PRN PRN Reason: Insomnia Last Admin: 10/05/18 22:33 Dose: 3 mg Mineral Oil/White Petrolatum (Eucerin Cream) 0 gm TOP BIDPRN PRN PRN Reason: Dry Skin Morphine Sulfate (Morphine) 4 mg SLOW IVP Q4H PRN PRN Reason: Severe Pain (7-10) Last Admin: 10/05/18 22:33 Dose: 4 mg Ondansetron HCl (Zofran Odt) 4 mg SL Q6H PRN PRN Reason: Nausea/Vomiting Ondansetron HCl (Zofran) 4 mg IVP Q6H PRN PRN Reason: Nausea/Vomiting Last Admin: 10/05/18 22:41 Dose: 4 mg Pantoprazole Sodium (Protonix) 40 mg IVP Q12HR [facility] Last Admin: 10/06/18 08:42 Dose: 40 mg Promethazine HCl (Phenergan) 25 mg IM/IV Q6H PRN PRN Reason: Nausea 2nd line Last Admin: 10/04/18 01:10 Dose: 25 mg Sodium Chloride ([place] Nasal [place] 0.65%) 0 ml EA NARE QIDPRN PRN PRN Reason: Nasal Congestion Sodium Chloride (Flush - Normal Saline) 10 ml IVF Q12HR [facility] Last Admin: 10/06/18 08:42 Dose: 10 ml Sodium Chloride (Flush - Normal Saline) 10 ml IVF PRN PRN PRN Reason: Saline Flush Last Admin: 10/01/18 03:33 Dose: 10 ml
[2018-10-06] MEDS ORDERED: traMADol HCl 50 MG TAB PO PRN (10:13)
[2018-10-06] MEDS ORDERED: Furosemide 20 MG/2 ML VIAL SLOW IVP SCH (11:30)
[2018-10-06] MEDS: Acetaminophen 500 MG TAB PO SCH ×3 (11:32→23:05)
--- NOTE | 2018-10-06 11:52 | RAD ---
ABDOMINAL SURVEY WITH UPRIGHT CHEST AND 2 VIEW ABDOMEN: Upright PA chest with supine and upright views of abdomen were obtained. INDICATION: Abdominal pain. COMPARISON: Correlation is made to recent upper GI of 10/03/2018 and recent chest film of 10/01/2018. FINDINGS: There is increasing left pleural effusion since the prior studies. There is now a moderate-sized lef t pleural effusion opacifying the left lower hemithorax. The right lung appears aerated and clear wi th no significant right effusion apparent. NG tube is in place unchanged from the recent exam. Small bowel gas pattern is unremarkable. There is contrast seen within the right colon and transverse colon. No evidence of free intraperitoneal ai r identified on the upright view. IMPRESSION: 1. Increasing left pleural effusion since the prior exam. 2. Unremarkable bowel gas pattern. POS: [facility]
[2018-10-06 12:57] LABS: INR-International Normal Ratio 1.1; PTT 34.5 SEC (22.9-36.1); Prothrombin Time 13.9 SEC (12.0-14.7)
[2018-10-06] MEDS ORDERED: Lidocaine 1% PF 5 ML VIAL ONE (13:18)
[2018-10-06] MEDS ORDERED: Sodium Bicarbonate 2.5 MEQ/5 ML VIAL ONE (13:18)
--- NOTE | 2018-10-06 13:32 | PRG ---
DATE OF SERVICE: 10/06/2018 SUBJECTIVE: The patient was seen this morning, sitting up in bed with no acute signs of distress. Reported some abdominal pain overnight, but none since. Has been walking and sitting up in a chair frequently. Reports passing flatus today, but no bowel movement yet. Denies nausea, vomiting, or diarrhea. Continues to work with physical therapy. [place] tube still in place. G-tube still connected to Reddy bag and draining to gravity. OBJECTIVE: VITAL SIGNS: Temperature 98.3, pulse 78, respirations 20, oxygen 94% on room air, and blood pressure 148/77. GENERAL: Well-appearing, elderly female, sitting on the bed with no signs of acute distress. PULMONARY: Equal chest rise and fall. Clear breath sounds bilaterally. No acute signs of pulmonary distress. CARDIAC: Regular rate and rhythm. No murmurs, gallops, or rubs. GI: Abdomen is soft, nontender, nondistended. G-tube in place with green liquid in Reddy bag. Midline abdominal wound is clean, dry, and intact and well healing. EXTREMITIES: No gross deformity. 2+ pulses in all extremities. No significant swelling noted. Gross motor and sensation intact x4 extremities. LABORATORY FINDINGS: Sodium 138, potassium 4.8, chloride 106, carbon dioxide 20, BUN 8, creatinine 0.58, phos 2.8, magnesium 1.6. DIAGNOSTIC FINDINGS: Acute abdominal x-ray series performed this morning demonstrates increased left pleural effusion since the prior exam, unremarkable bowel gas pattern. ASSESSMENT: 1. Postoperative day #4, status post ex-lap and repair of large hiatal hernia with gastropexy. 2. Resolving acute small bowel obstruction. 3. Resolving ileus. 4. Resolved acute SVT. PLAN: The patient will be advanced to full liquid diet today. Discontinue IV fluids. G-tube disconnected and clamped by Dr. Hawk this morning during rounds. Continue walking and sitting up in chair. Did replace magnesium and phosphorus today. Continuing to observe for return of bowel function. The patient was seen and examined by Dr. Hawk and myself this morning during rounds. Job ID: [id number]
[2018-10-06] MEDS: traMADol HCl 50 MG TAB PO PRN ×2 (14:58→20:34)
--- NOTE | 2018-10-06 15:25 | RAD ---
TWO VIEW CHEST: Indication: Post paracentesis, follow up. Inspiration and expiration frontal views of the chest obtai addison. Comparison: Earlier today. FINDINGS/IMPRESSION: A pigtail catheter overlies the left lung base. There has been significant reduction in the left pleu ral effusion when compared to earlier film. Some minimal fluid remains. There is left basilar atelect asis. Lungs otherwise appear clear. No significant pneumothorax identified. POS: [facility]
--- NOTE | 2018-10-06 15:52 | ULT ---
ULTRASOUND GUIDED LEFT THORACENTESIS: Indications: Symptomatic left pleural effusion. Dr. Hawk requested a therapeutic thoracentesis. FINDINGS: An 8 [place] pigtail catheter was placed into the left lung base into collection of pleural fluid unde r ultrasound guidance. 1000 cc of blood tinged pleural fluid was removed. When no further fluid could be aspirated, repeat ultrasound was performed and showed no significant residual effusion. PROCEDURE NOTE: Ultrasound of the left chest was performed from a posterior approach which shows a large left pleural effusion. Entry site was noted on the skin. The skin was then prepped and draped in a sterile manner . Local anesthesia was administered with Lidocaine. Tiny skin incision was made with a scalpel. A 8 F rench all purpose pigtail catheter with trocar in place was advanced into the pleural fluid in the le ft chest under ultrasound guidance. The catheter was advanced and the trocar removed. The catheter wa s then connected to suction drainage. 1000 cc of blood tinged pleural fluid was removed. A sample was sent to the laboratory. The patient tolerated the procedure well and there were no problems or complications. POS: [facility]
[2018-10-06] MEDS ORDERED: Ketorolac Tromethamine 30 MG/ML VIAL ONE (16:36)
[2018-10-06] MEDS ORDERED: Ketorolac Tromethamine 30 MG/ML VIAL IVP SCH (16:45)
[2018-10-06] MEDS: Senokot 8.6 MG TAB PO SCH (20:15)
[2018-10-07] MEDS: D5 1/2 NS w/20 mEq KCL 1,000 ML IV SCH (03:55)
[2018-10-07] MEDS: Acetaminophen 500 MG TAB PO SCH ×4 (03:55→23:26)
[2018-10-07] MEDS: Ketorolac Tromethamine 30 MG/ML VIAL IVP SCH ×4 (05:20→23:36)
[2018-10-07] MEDS: Pantoprazole 40 MG VIAL IVP SCH ×2 (09:14→20:18)
[2018-10-07] MEDS: Enoxaparin Sodium 40 MG/0.4 ML SYRINGE SC SCH (09:14)
[2018-10-07] MEDS: Polyethylene Glycol 3350 17 GM Packet PO SCH (09:19)
[2018-10-07] MEDS: Senokot 8.6 MG TAB PO SCH ×2 (09:19→20:17)
--- NOTE | 2018-10-07 11:35 | PRG ---
DATE OF SERVICE: 10/07/2018 SUBJECTIVE: Cristal Gamble is a 78-year-old female who is postop day 6 status post repair of hiatal hernia consisting of exploratory laparotomy and gastropexy. There were no acute overnight events. The patient had her thoracentesis yesterday. She reports improving pain, but is concerned about significant weakness and fatigue. The patient reports that she is unable to support herself without the assistance of a pillow and other devices. Abdominal pain is well controlled. She reports positive flatus, but denies a bowel movement. She is tolerating a full liquid diet. OBJECTIVE: VITAL SIGNS: Temperature 98.1, pulse 72, respirations 16, O2 saturation 94% to 95% on room air, blood pressure 163/77. GENERAL: Elderly appearing female, in no acute distress, sitting in chair out of bed. Dobhoff is in place with trickle feeds running. PULMONARY: Normal workup of breathing. Symmetric rise. CARDIOVASCULAR: Regular rate and rhythm. GI: Abdomen is soft with very mild generalized abdominal tenderness. G-tube is clamped. MUSCULOSKELETAL: Moves all extremities x4. NEURO: No focal deficit is noted. LABORATORY FINDINGS: No new laboratory findings. RADIOGRAPHIC FINDINGS: Post thoracentesis chest x-ray demonstrates improved left pleural effusion with pigtail catheter in place. No focal consolidation noted. ASSESSMENT: 1. Hiatal hernia with small-bowel obstruction. 2. Postoperative day 6 status post hiatal hernia repair, lysis of adhesion and gastropexy. 3. Postprocedural supraventricular tachycardia, resolved. 4. Left pleural effusion, improving. 5. Weakness, debility, and deconditioning. PLAN: Continue full liquid diet until bowel function has returned. Continue working with PT and OT for weakness and deconditioning. Dobhoff tube has been removed by Dr. Hawk at this time. Await return of bowel function. Discontinue IV fluids and saline lock. Continue G-tube clamping. Once the patient has had a bowel movement, she will be eligible for discharge to inpatient rehab from surgical standpoint. If pigtail catheter drainage remains minimal that can likely be removed within the next 24 hours. Plan of care was discussed with the patient at bedside and all questions were answered at the time of this dictation. The patient was seen and evaluated with Dr. Hawk. Job ID: [id number] [facility]
--- NOTE | 2018-10-07 14:24 | PDOC.PN ---
- Subjective Encounter Start Date: 10/07/18 Encounter Start Time: 09:00 Patient seen and examined. No new complaints. No overnight events - Objective Resuscitation Status - Order Detail: 09/30/18 07:12 Resuscitation Status Routine Resuscitation Status: FULL: Full Resuscitation MAR Reviewed: Yes Vital Signs & Weight: Vital Signs (12 hours) Temp Pulse Resp BP BP Pulse Ox 10/07/18 11:29 97.9 F 73 16 144/76 H 94 L 10/07/18 07:02 98.1 F 72 16 163/77 H 94 L 10/07/18 04:15 97.6 F 70 18 142/79 H 95 Weight Admit Weight 186 lb 15.936 oz Weight 190 lb 4.143 oz Most Recent Monitor Data Heart Rate from ECG 84 NIBP 123/55 NIBP BP-Mean 77 Respiration from ECG 20 SpO2 99 I&O: 10/06/18 10/07/18 10/08/18 06:59 06:59 06:59 Intake Total 1901 3140 Output Total 485 2020 Balance 1416 1120 Result Diagrams: 10/05/18 04:23 10/06/18 05:20 Phys Exam - Physical Examination Constitutional: NAD HEENT: PERRLA, moist MMs, sclera anicteric Neck: no JVD, supple Respiratory: no wheezing, no rales, no rhonchi Cardiovascular: RRR, no significant murmur, no rub Gastrointestinal: soft, non-tender, no distention, positive bowel sounds drain + Musculoskeletal: no edema, pulses present Neurological: non-focal, normal sensation Psychiatric: normal affect, A&O x 3 Skin: no rash, normal turgor Dx/Plan (1) SBO (small bowel obstruction) Code(s): K56.609 - UNSP INTESTNL OBST, UNSP TO PARTIAL VERSUS COMPLETE OBST Status: Acute Comment: s/p surgical repair (2) Diverticulosis of colon Code(s): K57.30 - DVRTCLOS OF LG INT W/O PERFORATION OR ABSCESS W/O BLEEDING Status: Chronic (3) Hiatal hernia Code(s): K44.9 - DIAPHRAGMATIC HERNIA WITHOUT OBSTRUCTION OR GANGRENE Status: Chronic Comment: s/p surgical repair (4) Obesity (BMI 30.0-34.9) Code(s): E66.9 - OBESITY, UNSPECIFIED Status: Chronic (5) Hypokalemia Code(s): E87.6 - HYPOKALEMIA Status: Acute (6) Hypomagnesemia Code(s): E83.42 - HYPOMAGNESEMIA Status: Acute (7) UTI (urinary tract infection) Status: Acute (8) Hypophosphatemia Code(s): E83.39 - OTHER DISORDERS OF PHOSPHORUS METABOLISM Status: Acute (9) SVT (supraventricular tachycardia) Code(s): I47.1 - SUPRAVENTRICULAR TACHYCARDIA Status: Resolved - Plan cont current plan of care, PT/OT, addiction social worker * medication reviewed as below * symptomatic treatment * continue diet advancement as per surgeon * drain as per surgeon * discharge soon to rehab. Review of Systems - Review of Systems ENT: negative: Ear Pain, Ear Discharge, Nose Pain, Nose Discharge, Nose Congestion, Mouth Pain, Mouth Swelling, Throat Pain, Throat Swelling, Other Respiratory: negative: Cough, Dry, Shortness of Breath, Hemoptysis, SOB with Excertion, Pleuritic Pain, Sputum, Wheezing Cardiovascular: negative: chest pain, palpitations, orthopnea, paroxysmal nocturnal dyspnea, edema, light headedness, other Gastrointestinal: negative: Nausea, Vomiting, Abdominal Pain, Diarrhea, Constipation, Melena, Hematochezia, Other Genitourinary: negative: Dysuria, Frequency, Incontinence, Hematuria, Retention , Other Musculoskeletal: negative: Neck Pain, Shoulder Pain, Arm Pain, Back Pain, Hand Pain, Leg Pain, Foot Pain, Other - Medications/Allergies Allergies/Adverse Reactions: Allergies Allergy/AdvReac Type Severity Reaction Status Date / Time codeine Allergy Severe Verified 05/14/17 16:21 Medications: Current Medications Acetaminophen (Tylenol) 1,000 mg PO Q6H [facility] Last Admin: 10/07/18 09:20 Dose: 1,000 mg Albuterol/Ipratropium (Duoneb) 3 ml NEB Q6H PRN PRN Reason: SOB &/or Wheezing Last Admin: 10/06/18 07:30 Dose: 3 ml Artificial Tears (Tears Naturale) 2 drop EA EYE PRN PRN PRN Reason: Dry Eyes Bisacodyl (Dulcolax) 10 mg [place] DAILYPRN PRN PRN Reason: Constipation Enoxaparin Sodium (Lovenox) 40 mg SC 0900 [facility] Last Admin: 10/07/18 09:14 Dose: 40 mg Hydralazine HCl (Apresoline) 10 mg SLOW IVP Q4H PRN PRN Reason: SBP > 180 and HR < 70 Ketorolac Tromethamine (Toradol) 15 mg IVP Q6HR [facility] Stop: 10/11/18 23:59 Last Admin: 10/07/18 12:40 Dose: 15 mg Labetalol HCl (Normodyne) 20 mg SLOW IVP Q4H PRN PRN Reason: SBP > 180 and HR >/= 70 Melatonin (Melatonin) 3 mg PO HS PRN PRN Reason: Insomnia Last Admin: 10/05/18 22:33 Dose: 3 mg Mineral Oil/White Petrolatum (Eucerin Cream) 0 gm TOP BIDPRN PRN PRN Reason: Dry Skin Ondansetron HCl (Zofran Odt) 4 mg SL Q6H PRN PRN Reason: Nausea/Vomiting Ondansetron HCl (Zofran) 4 mg IVP Q6H PRN PRN Reason: Nausea/Vomiting Last Admin: 10/05/18 22:41 Dose: 4 mg Pantoprazole Sodium (Protonix) 40 mg IVP Q12HR [facility] Last Admin: 10/07/18 09:14 Dose: 40 mg Polyethylene Glycol (Miralax) 17 gm PO DAILY [facility] Last Admin: 10/07/18 09:19 Dose: 17 gm Promethazine HCl (Phenergan) 25 mg IM/IV Q6H PRN PRN Reason: Nausea 2nd line Last Admin: 10/04/18 01:10 Dose: 25 mg Senna (Senokot) 1 tab PO BID [facility] Last Admin: 10/07/18 09:19 Dose: 1 tab Sodium Chloride ([place] Nasal [place] 0.65%) 0 ml EA NARE QIDPRN PRN PRN Reason: Nasal Congestion Sodium Chloride (Flush - Normal Saline) 10 ml IVF Q12HR [facility] Last Admin: 10/07/18 09:26 Dose: 10 ml Sodium Chloride (Flush - Normal Saline) 10 ml IVF PRN PRN PRN Reason: Saline Flush Last Admin: 10/01/18 03:33 Dose: 10 ml Tramadol HCl (Ultram) 50 mg PO Q6H PRN PRN Reason: Moderate Pain (4-6) Tramadol HCl (Ultram) 100 mg PO Q6H PRN PRN Reason: Moderate to Severe Pain (6-10) Last Admin: 10/06/18 20:34 Dose: 100 mg
[2018-10-07] MEDS: Ondansetron ODT 4 MG TAB SL PRN (21:08)
[2018-10-08] MEDS: Acetaminophen 500 MG TAB PO SCH ×4 (05:18→21:49)
[2018-10-08] MEDS: Ketorolac Tromethamine 30 MG/ML VIAL IVP SCH (05:18)
[2018-10-08] MEDS: Pantoprazole 40 MG VIAL IVP SCH ×2 (08:53→20:51)
[2018-10-08] MEDS: Ondansetron ODT 4 MG TAB SL PRN (08:53)
[2018-10-08] MEDS: Enoxaparin Sodium 40 MG/0.4 ML SYRINGE SC SCH (08:53)
[2018-10-08] MEDS: Senokot 8.6 MG TAB PO SCH ×2 (08:54→20:51)
[2018-10-08] MEDS: Polyethylene Glycol 3350 17 GM Packet PO SCH (08:54)
--- NOTE | 2018-10-08 10:11 | PDOC.PN ---
- Subjective Encounter Start Date: 10/08/18 Encounter Start Time: 08:10 last night pt had vomiting, this morning after breakfast feels nausea, not feeling well today she had BM last night - Objective Resuscitation Status - Order Detail: 09/30/18 07:12 Resuscitation Status Routine Resuscitation Status: FULL: Full Resuscitation MAR Reviewed: Yes Vital Signs & Weight: Vital Signs (12 hours) Temp Pulse Resp BP BP Pulse Ox 10/08/18 07:18 97.6 F 88 20 137/84 93 L 10/08/18 04:00 98 F 78 20 147/81 H 98 10/08/18 00:00 98 F 78 20 152/84 H 96 Weight Admit Weight 186 lb 15.936 oz Weight 190 lb 4.143 oz Most Recent Monitor Data Heart Rate from ECG 84 NIBP 123/55 NIBP BP-Mean 77 Respiration from ECG 20 SpO2 99 I&O: 10/07/18 10/08/18 10/09/18 06:59 06:59 06:59 Intake Total 3140 1350 Output Total 2020 630 Balance 1120 720 Result Diagrams: 10/05/18 04:23 10/06/18 05:20 Phys Exam - Physical Examination Constitutional: NAD HEENT: PERRLA, moist MMs, sclera anicteric Neck: no JVD, supple Respiratory: no wheezing, no rales, no rhonchi Cardiovascular: RRR, no significant murmur, no rub Gastrointestinal: soft, non-tender, no distention, positive bowel sounds pigtail drain+, G-tube+ Musculoskeletal: no edema, pulses present Neurological: non-focal, normal sensation, moves all 4 limbs Psychiatric: normal affect, A&O x 3 Skin: no rash, normal turgor Dx/Plan (1) SBO (small bowel obstruction) Code(s): K56.609 - UNSP INTESTNL OBST, UNSP TO PARTIAL VERSUS COMPLETE OBST Status: Acute Comment: s/p surgical repair (2) Diverticulosis of colon Code(s): K57.30 - DVRTCLOS OF LG INT W/O PERFORATION OR ABSCESS W/O BLEEDING Status: Chronic (3) Hiatal hernia Code(s): K44.9 - DIAPHRAGMATIC HERNIA WITHOUT OBSTRUCTION OR GANGRENE Status: Chronic Comment: s/p surgical repair (4) Obesity (BMI 30.0-34.9) Code(s): E66.9 - OBESITY, UNSPECIFIED Status: Chronic (5) Hypokalemia Code(s): E87.6 - HYPOKALEMIA Status: Acute (6) Hypomagnesemia Code(s): E83.42 - HYPOMAGNESEMIA Status: Acute (7) UTI (urinary tract infection) Status: Acute (8) Hypophosphatemia Code(s): E83.39 - OTHER DISORDERS OF PHOSPHORUS METABOLISM Status: Acute (9) SVT (supraventricular tachycardia) Code(s): I47.1 - SUPRAVENTRICULAR TACHYCARDIA Status: Resolved - Plan cont current plan of care * continue diet as tolerated * medication reviewed as below * symptomatic treatment * ambulate as tolerated * will keep over weekend in hospital and consider discharge on Wednesday if continue to feel better. Review of Systems - Review of Systems ENT: negative: Ear Pain, Ear Discharge, Nose Pain, Nose Discharge, Nose Congestion, Mouth Pain, Mouth Swelling, Throat Pain, Throat Swelling, Other Respiratory: negative: Cough, Dry, Shortness of Breath, Hemoptysis, SOB with Excertion, Pleuritic Pain, Sputum, Wheezing Cardiovascular: negative: chest pain, palpitations, orthopnea, paroxysmal nocturnal dyspnea, edema, light headedness, other Gastrointestinal: negative: Nausea, Vomiting, Abdominal Pain, Diarrhea, Constipation, Melena, Hematochezia, Other Genitourinary: negative: Dysuria, Frequency, Incontinence, Hematuria, Retention , Other Musculoskeletal: negative: Neck Pain, Shoulder Pain, Arm Pain, Back Pain, Hand Pain, Leg Pain, Foot Pain, Other - Medications/Allergies Allergies/Adverse Reactions: Allergies Allergy/AdvReac Type Severity Reaction Status Date / Time codeine Allergy Severe Verified 05/14/17 16:21 Medications: Current Medications Acetaminophen (Tylenol) 1,000 mg PO Q6H [facility] Last Admin: 10/08/18 05:18 Dose: 1,000 mg Albuterol/Ipratropium (Duoneb) 3 ml NEB Q6H PRN PRN Reason: SOB &/or Wheezing Last Admin: 10/06/18 07:30 Dose: 3 ml Artificial Tears (Tears Naturale) 2 drop EA EYE PRN PRN PRN Reason: Dry Eyes Bisacodyl (Dulcolax) 10 mg SC DAILYPRN PRN PRN Reason: Constipation Enoxaparin Sodium (Lovenox) 40 mg SC 0900 [facility] Last Admin: 10/08/18 08:53 Dose: 40 mg Hydralazine HCl (Apresoline) 10 mg SLOW IVP Q4H PRN PRN Reason: SBP > 180 and HR < 70 Ketorolac Tromethamine (Toradol) 15 mg IVP Q6HR [facility] Stop: 10/11/18 23:59 Last Admin: 10/08/18 05:18 Dose: 15 mg Labetalol HCl (Normodyne) 20 mg SLOW IVP Q4H PRN PRN Reason: SBP > 180 and HR >/= 70 Melatonin (Melatonin) 3 mg PO HS PRN PRN Reason: Insomnia Last Admin: 10/05/18 22:33 Dose: 3 mg Mineral Oil/White Petrolatum (Eucerin Cream) 0 gm TOP BIDPRN PRN PRN Reason: Dry Skin Ondansetron HCl (Zofran Odt) 4 mg SL Q6H PRN PRN Reason: Nausea/Vomiting Last Admin: 10/08/18 08:53 Dose: 4 mg Ondansetron HCl (Zofran) 4 mg IVP Q6H PRN PRN Reason: Nausea/Vomiting Last Admin: 10/05/18 22:41 Dose: 4 mg Pantoprazole Sodium (Protonix) 40 mg IVP Q12HR [facility] Last Admin: 10/08/18 08:53 Dose: 40 mg Polyethylene Glycol (Miralax) 17 gm PO DAILY [facility] Last Admin: 10/08/18 08:54 Dose: Not Given Promethazine HCl (Phenergan) 25 mg IM/IV Q6H PRN PRN Reason: Nausea 2nd line Last Admin: 10/04/18 01:10 Dose: 25 mg Senna (Senokot) 1 tab PO BID [facility] Last Admin: 10/08/18 08:54 Dose: Not Given Sodium Chloride ([place] Nasal [place] 0.65%) 0 ml EA NARE QIDPRN PRN PRN Reason: Nasal Congestion Sodium Chloride (Flush - Normal Saline) 10 ml IVF Q12HR [facility] Last Admin: 10/08/18 08:54 Dose: 10 ml Sodium Chloride (Flush - Normal Saline) 10 ml IVF PRN PRN PRN Reason: Saline Flush Last Admin: 10/01/18 03:33 Dose: 10 ml Tramadol HCl (Ultram) 50 mg PO Q6H PRN PRN Reason: Moderate Pain (4-6) Tramadol HCl (Ultram) 100 mg PO Q6H PRN PRN Reason: Moderate to Severe Pain (6-10) Last Admin: 10/06/18 20:34 Dose: 100 mg
[2018-10-08] MEDS: Ibuprofen 600 MG TAB PO SCH ×2 (11:50→20:52)
--- NOTE | 2018-10-08 11:54 | PRG ---
DATE OF SERVICE: 10/08/2018 SUBJECTIVE: This is a 78-year-old female, who is postop day 7, status post repair of hiatal hernia consisting of exploratory laparotomy and gastropexy. The patient did have a bowel movement x2 overnight. However, she also had some nausea with vomiting. She has not passed flatus since last night. Pain has been relatively well controlled, but the patient is still concerned about generalized weakness. OBJECTIVE: VITAL SIGNS: Temperature 97.6, pulse 88, respirations 20, O2 saturations 93% to 98% on room air, blood pressure 137/84. GENERAL: Elderly appearing female, in no acute distress, resting in bed. PULMONARY: Normal work of breathing. Symmetric rise. Lungs are clear to auscultation bilaterally. Pigtail catheter in place. CARDIOVASCULAR: Regular rate and rhythm. A 3/6 systolic murmur. GI: Midline incision is clean, dry, and intact. There is no erythema or drainage. G-tube is clamped. MUSCULOSKELETAL: Moves all extremities x4. NEUROLOGIC: No focal deficit is noted. ASSESSMENT: 1. Nausea and vomiting secondary to hiatal hernia, gastric outlet obstruction. 2. Closed-loop small-bowel obstruction, status post lysis of adhesions. 3. Postsurgical pain. 4. Acute SVT, resolved. 5. Left pleural effusion, improving. 6. Weakness, debility, and deconditioning. PLAN: The patient reports nausea was significant this morning, but did improve with mobility and walking. If she continues to improve she may advance her diet as tolerated. Pigtail drain to be removed. Chest x-ray and labs in a.m. Once return of bowel function and tolerating a general diet, the patient will be eligible for discharge to inpatient rehab. Plan of care was discussed with the patient, nursing and hospital medicine. All questions were answered prior to this dictation. The patient was discussed with Trauma attending. Job ID: [id number] [facility]
[2018-10-09] MEDS: Promethazine HCl 25 MG/ML VIAL IM/IV PRN ×2 (00:43→19:57)
[2018-10-09] MEDS: Ibuprofen 600 MG TAB PO SCH ×3 (03:42→19:58)
[2018-10-09] MEDS: Acetaminophen 500 MG TAB PO SCH ×4 (03:43→21:17)
[2018-10-09 07:05] LABS: #Eosinphils 0.4 thou/uL (0.0-0.7); #Lymphocytes 1.9 thou/uL (1.20-3.40); #Neutrophils 10.3 thou/uL (1.40-6.50); %Basophils 0.2 % (0.0-1.0); %Eosinophils 2.8 % (0.0-10.0); %Lymphocytes 14.2 % (21.0-51.0); %Monocytes 7.2 % (0.0-10.0); %Neutrophils 75.7 % (42.0-75.0); Hemoglobin 11.4 g/dL (12.0-16.0); Mean Corpuscular HGB CONC 31.9 g/dL (32.0-36.0); Mean Corpuscular Hemoglobin 29.1 pg (27.0-31.0); Mean Corpuscular Volume 91.3 fL (78.0-98.0); Mean Platelet Volume 10.2 fL (7.4-10.4); Platelet Count 339 thou/uL (130-400); RBC Distribution Width 11.8 % (11.5-14.5); Red Blood Cell (RBC) Count 3.91 mill/uL (4.20-5.40); White Blood Cell (WBC) Count 13.6 thou/uL (4.8-10.8)
[2018-10-09 07:27] LABS: Anion Gap 9 mmol/L (10-20); BUN (Urea Nitrogen) 8 mg/dL (9.8-20.1); Calc. Creatinine Clearance 97 mL/min (70-130); Calcium 9.1 mg/dL (7.8-10.44); Carbon Dioxide 30 mmol/L (23-31); Chloride 105 mmol/L (98-107); Estimated GFR-MDRD 87; Glucose 87 mg/dL (83-110); Magnesium 1.4 mg/dL (1.6-2.6); Phosphorus 3.4 mg/dL (2.3-4.7); Potassium 4.2 mmol/L (3.5-5.1); Sodium 140 mmol/L (136-145)
[2018-10-09] MEDS: Pantoprazole 40 MG VIAL IVP SCH ×2 (08:21→20:01)
[2018-10-09] MEDS: traMADol HCl 50 MG TAB PO PRN (08:22)
[2018-10-09] MEDS ORDERED: Magnesium Sulfate 3 GM in Sodium Chloride 0.9% 250 ML 250 ML IVPB SCH (09:00)
[2018-10-09] MEDS: Polyethylene Glycol 3350 17 GM Packet PO SCH (09:13)
[2018-10-09] MEDS: Senokot 8.6 MG TAB PO SCH ×2 (09:14→19:59)
--- NOTE | 2018-10-09 09:21 | RAD ---
CHEST 1 VIEW: Date: 10/09/18 HISTORY: Follow-up pleural effusion. COMPARISON: 10/06/18. FINDINGS: The previously noted small caliber left pleural tube has been removed. The Dobbhoff catheter has been removed. Increased linear and interstitial markings bilaterally. Borderline heart size. No pneumotho rax. IMPRESSION: Minimal increased bronchovascular markings bilaterally with borderline heart size. No confluent pneum onia. These markings are more prominent than on the prior study. Short-term follow-up suggested. POS: [facility]
--- NOTE | 2018-10-09 09:42 | PDOC.PN ---
- Subjective Encounter Start Date: 10/09/18 Encounter Start Time: 08:10 Patient seen and examined. No new complaints. No overnight events - Objective Resuscitation Status - Order Detail: 09/30/18 07:12 Resuscitation Status Routine Resuscitation Status: FULL: Full Resuscitation MAR Reviewed: Yes Vital Signs & Weight: Vital Signs (12 hours) Temp Pulse Resp BP Pulse Ox 10/09/18 08:44 97.8 F 79 16 122/72 94 L 10/09/18 04:52 98.2 F 81 18 114/69 93 L 10/09/18 01:58 94 L 10/09/18 00:16 97.7 F 75 18 102/60 94 L Weight Admit Weight 186 lb 15.936 oz Weight 195 lb 8 oz Most Recent Monitor Data Heart Rate from ECG 84 NIBP 123/55 NIBP BP-Mean 77 Respiration from ECG 20 SpO2 99 I&O: 10/08/18 10/09/18 10/10/18 06:59 06:59 06:59 Intake Total 1350 1250 Output Total 630 Balance 720 1250 Result Diagrams: 10/09/18 06:36 10/09/18 06:36 Phys Exam - Physical Examination Constitutional: NAD HEENT: PERRLA, moist MMs, sclera anicteric Neck: no JVD, supple Respiratory: no wheezing, no rales, no rhonchi Cardiovascular: RRR, no significant murmur, no rub Gastrointestinal: soft, non-tender, no distention, positive bowel sounds G-tube+ Musculoskeletal: no edema, pulses present Neurological: non-focal, normal sensation, moves all 4 limbs Lymphatic: no nodes Psychiatric: normal affect, A&O x 3 Skin: no rash, normal turgor Dx/Plan (1) SBO (small bowel obstruction) Code(s): K56.609 - UNSP INTESTNL OBST, UNSP TO PARTIAL VERSUS COMPLETE OBST Status: Acute Comment: s/p surgical repair (2) Diverticulosis of colon Code(s): K57.30 - DVRTCLOS OF LG INT W/O PERFORATION OR ABSCESS W/O BLEEDING Status: Chronic (3) Hiatal hernia Code(s): K44.9 - DIAPHRAGMATIC HERNIA WITHOUT OBSTRUCTION OR GANGRENE Status: Chronic Comment: s/p surgical repair (4) Obesity (BMI 30.0-34.9) Code(s): E66.9 - OBESITY, UNSPECIFIED Status: Chronic (5) Hypokalemia Code(s): E87.6 - HYPOKALEMIA Status: Acute (6) Hypomagnesemia Code(s): E83.42 - HYPOMAGNESEMIA Status: Acute (7) UTI (urinary tract infection) Status: Acute (8) Hypophosphatemia Code(s): E83.39 - OTHER DISORDERS OF PHOSPHORUS METABOLISM Status: Acute (9) SVT (supraventricular tachycardia) Code(s): I47.1 - SUPRAVENTRICULAR TACHYCARDIA Status: Resolved - Plan cont current plan of care, 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 Review of Systems - Review of Systems ENT: negative: Ear Pain, Ear Discharge, Nose Pain, Nose Discharge, Nose Congestion, Mouth Pain, Mouth Swelling, Throat Pain, Throat Swelling, Other Respiratory: negative: Cough, Dry, Shortness of Breath, Hemoptysis, SOB with Excertion, Pleuritic Pain, Sputum, Wheezing Cardiovascular: negative: chest pain, palpitations, orthopnea, paroxysmal nocturnal dyspnea, edema, light headedness, other Gastrointestinal: negative: Nausea, Vomiting, Abdominal Pain, Diarrhea, Constipation, Melena, Hematochezia, Other Genitourinary: negative: Dysuria, Frequency, Incontinence, Hematuria, Retention , Other Musculoskeletal: negative: Neck Pain, Shoulder Pain, Arm Pain, Back Pain, Hand Pain, Leg Pain, Foot Pain, Other - Medications/Allergies Allergies/Adverse Reactions: Allergies Allergy/AdvReac Type Severity Reaction Status Date / Time codeine Allergy Severe Verified 05/14/17 16:21 Medications: Current Medications Acetaminophen (Tylenol) 1,000 mg PO Q6H ANDREA Last Admin: 10/09/18 03:43 Dose: 1,000 mg Albuterol/Ipratropium (Duoneb) 3 ml NEB Q6H PRN PRN Reason: SOB &/or Wheezing Last Admin: 10/06/18 07:30 Dose: 3 ml Artificial Tears (Tears Naturale) 2 drop EA EYE PRN PRN PRN Reason: Dry Eyes Bisacodyl (Dulcolax) 10 mg RI DAILYPRN PRN PRN Reason: Constipation Enoxaparin Sodium (Lovenox) 40 mg SC 0900 [facility] Last Admin: 10/08/18 08:53 Dose: 40 mg Hydralazine HCl (Apresoline) 10 mg SLOW IVP Q4H PRN PRN Reason: SBP > 180 and HR < 70 Magnesium Sulfate 3 gm/ Sodium (Chloride) 256 mls @ 86 mls/hr IVPB 0900 [facility] Stop: 10/09/18 12:00 Last Admin: 10/09/18 09:16 Dose: 256 mls Ibuprofen (Motrin) 600 mg PO Q8H [facility] Last Admin: 10/09/18 03:42 Dose: 600 mg Labetalol HCl (Normodyne) 20 mg SLOW IVP Q4H PRN PRN Reason: SBP > 180 and HR >/= 70 Melatonin (Melatonin) 3 mg PO HS PRN PRN Reason: Insomnia Last Admin: 10/05/18 22:33 Dose: 3 mg Mineral Oil/White Petrolatum (Eucerin Cream) 0 gm TOP BIDPRN PRN PRN Reason: Dry Skin Ondansetron HCl (Zofran Odt) 4 mg SL Q6H PRN PRN Reason: Nausea/Vomiting Last Admin: 10/08/18 08:53 Dose: 4 mg Ondansetron HCl (Zofran) 4 mg IVP Q6H PRN PRN Reason: Nausea/Vomiting Last Admin: 10/05/18 22:41 Dose: 4 mg Pantoprazole Sodium (Protonix) 40 mg IVP Q12HR [facility] Last Admin: 10/09/18 08:21 Dose: 40 mg Polyethylene Glycol (Miralax) 17 gm PO DAILY [facility] Last Admin: 10/09/18 09:13 Dose: Not Given Promethazine HCl (Phenergan) 25 mg IM/IV Q6H PRN PRN Reason: Nausea 2nd line Last Admin: 10/09/18 00:43 Dose: 25 mg Senna (Senokot) 1 tab PO BID [facility] Last Admin: 10/09/18 09:14 Dose: Not Given Sodium Chloride (Carbon Nasal [place] 0.65%) 0 ml EA NARE QIDPRN PRN PRN Reason: Nasal Congestion Sodium Chloride (Flush - Normal Saline) 10 ml IVF Q12HR [facility] Last Admin: 10/09/18 09:20 Dose: 10 ml Sodium Chloride (Flush - Normal Saline) 10 ml IVF PRN PRN PRN Reason: Saline Flush Last Admin: 10/01/18 03:33 Dose: 10 ml Tramadol HCl (Ultram) 50 mg PO Q6H PRN PRN Reason: Moderate Pain (4-6) Tramadol HCl (Ultram) 100 mg PO Q6H PRN PRN Reason: Moderate to Severe Pain (6-10) Last Admin: 10/09/18 08:22 Dose: 100 mg
[2018-10-09] MEDS: Enoxaparin Sodium 40 MG/0.4 ML SYRINGE SC SCH (13:03)
--- NOTE | 2018-10-09 15:00 | PRG ---
DATE OF SERVICE: 10/09/2018 SUBJECTIVE: The patient remains on the surgical floor. She had no issues overnight with the exception of not being able to sleep very well. She did eventually get a sleep aid, which she said made a difference, but feels fatigued still today. She also noted some bright red blood in her stool this morning that she attributes to her hemorrhoid history. Otherwise, she is doing fine. Her pain is controlled, and she is tolerating a diet. PHYSICAL EXAMINATION: VITAL SIGNS: Temperature is 97.8, heart rate 79, blood pressure 122/72, respirations 16, and oxygen saturation 94% on room air. GENERAL: The patient is resting comfortably in a chair at bedside. She is awake, alert, and oriented. LUNGS: Clear to auscultation with good inspiratory and expiratory effort. HEART: Regular rate and rhythm. ABDOMEN: Soft and flat. Her midline incision is clean, dry, and intact. Mark are intact. There appears to be no discharge or redness. EXTREMITIES: Neurovascularly intact x4. Lower extremities have a 1+ pitting edema. LABORATORY FINDINGS: White blood cell count 13.6, hemoglobin 11.4, hematocrit 35.7, and platelets 339. Sodium 140, potassium 4.2, chloride 105, CO2 of 30, BUN 8, creatinine 0.66, glucose 87, magnesium 1.4, and phosphorus 3.4. IMAGING STUDIES: Radiographs this morning; AP chest x-ray shows minimal increased bronchovascular markings bilaterally with borderline heart size. They are more prominent than on the prior study. ASSESSMENT: 1. Status post exploratory laparotomy, lysis of adhesions, status post closed-loop small bowel obstruction. 2. Acute supraventricular tachycardia, resolved. 3. Left pleural effusion, improving. PLAN: Plan will be to continue supportive care. Re-evaluate in the morning. We will defer to the medicine team who are primary on this patient regarding diuresing the patient at the appropriate time. Job ID: [id number]
[2018-10-10] MEDS: Acetaminophen 500 MG TAB PO SCH ×2 (03:32→11:13)
[2018-10-10] MEDS: Ibuprofen 600 MG TAB PO SCH (03:32)
[2018-10-10 05:46] LABS: #Basophils 0.1 thou/uL (0.0-0.2); #Eosinphils 0.4 thou/uL (0.0-0.7); #Lymphocytes 1.6 thou/uL (1.20-3.40); #Monocytes 0.9 thou/uL (0.11-0.59); #Neutrophils 10.2 thou/uL (1.40-6.50); %Basophils 0.4 % (0.0-1.0); %Eosinophils 3.1 % (0.0-10.0); %Lymphocytes 12.3 % (21.0-51.0); %Monocytes 6.9 % (0.0-10.0); %Neutrophils 77.3 % (42.0-75.0); Hemoglobin 10.3 g/dL (12.0-16.0); Mean Corpuscular HGB CONC 31.9 g/dL (32.0-36.0); Mean Corpuscular Hemoglobin 29.2 pg (27.0-31.0); Mean Corpuscular Volume 91.5 fL (78.0-98.0); Mean Platelet Volume 10.3 fL (7.4-10.4); Platelet Count 318 thou/uL (130-400); Red Blood Cell (RBC) Count 3.54 mill/uL (4.20-5.40); White Blood Cell (WBC) Count 13.2 thou/uL (4.8-10.8)
[2018-10-10 06:56] LABS: Chloride 106 mmol/L (98-107); Magnesium 1.7 mg/dL (1.6-2.6); Potassium 3.8 mmol/L (3.5-5.1); Sodium 139 mmol/L (136-145)
[2018-10-10 06:57] LABS: Calcium 8.5 mg/dL (7.8-10.44); Glucose 93 mg/dL (83-110)
[2018-10-10 06:59] LABS: Anion Gap 10 mmol/L (10-20); Carbon Dioxide 27 mmol/L (23-31)
[2018-10-10 07:01] LABS: BUN (Urea Nitrogen) 9 mg/dL (9.8-20.1); Calc. Creatinine Clearance 118 mL/min (70-130); Estimated GFR-MDRD Greater than 90
[2018-10-10 07:18] LABS: Phosphorus 2.7 mg/dL (2.3-4.7)
[2018-10-10] MEDS ORDERED: Ibuprofen 600 MG TAB PO PRN (07:21)
[2018-10-10] MEDS: Enoxaparin Sodium 40 MG/0.4 ML SYRINGE SC SCH (07:43)
[2018-10-10] MEDS: Senokot 8.6 MG TAB PO SCH (07:44)
[2018-10-10] MEDS: Polyethylene Glycol 3350 17 GM Packet PO SCH (07:44)
[2018-10-10] MEDS: traMADol HCl 50 MG TAB PO PRN (07:46)
[2018-10-10 10:25] LABS: Hemoglobin 11.4 g/dL (12.0-16.0); Mean Corpuscular Hemoglobin 29.2 pg (27.0-31.0); Mean Corpuscular Volume 91.3 fL (78.0-98.0); Mean Platelet Volume 10.3 fL (7.4-10.4); Platelet Count 343 thou/uL (130-400); Red Blood Cell (RBC) Count 3.89 mill/uL (4.20-5.40); White Blood Cell (WBC) Count 14.6 thou/uL (4.8-10.8)
[2018-10-10 10:41] LABS: Band 9 % (5-11); Eosinophils 2 % (0-10); Lymphocytes 6 % (21-51); MDiff Complete? YES; Monocytes 8 % (0-10); Neutrophil 74 % (42-75); Platelet Morphology Comment Appears Adequate; RBC Morphology Normal; Reactive Lymphocytes 1 % (0-10)
--- NOTE | 2018-10-10 10:57 | DIS ---
DATE OF ADMISSION: 09/30/2018 DATE OF DISCHARGE: 10/10/2018 PRIMARY CARE PHYSICIAN: Dr. Linwood Belle. DISCHARGE DISPOSITION: Rehab. PRIMARY DISCHARGE DIAGNOSES: Small bowel obstruction, status post adhesiolysis; hiatal hernia, status post surgical repair; abnormal electrolytes corrected; urinary tract infection, treated in hospital; supraventricular tachycardia, resolved. SECONDARY DISCHARGE DIAGNOSES: Obesity, hiatal hernia, diverticulosis of colon. PRIMARY PROCEDURE/OPERATION: Adhesiolysis, hiatal hernia repair. RADIOLOGICAL INVESTIGATION: CT abdomen and pelvis, chest x-ray, upper GI series with air contrast echocardiography. SIGNIFICANT LABORATORY DATA: WBC 14.6, hemoglobin 11.4, platelets 343. INR 1.1. Sodium 139, creatinine 0.56. Urine culture grew E coli. Repeat urine culture negative. DISCHARGE MEDICATIONS: 1. Tylenol 1 g q.6 hourly p.r.n. 2. Ibuprofen 600 mg q.8 hourly p.r.n. 3. Melatonin 3 mg p.o. at bedtime p.r.n. 4. Protonix 40 mg daily. 5. MiraLAX 17 g p.o. daily p.r.n. CONTRAINDICATION: None. CODE STATUS: Full code. INPATIENT WEB DESIGNER: Dr. Hawk was following while in hospital. TEST RESULT PENDING ON DISCHARGE: None. ALLERGIES: CODEINE. DISCHARGE PLAN: Posthospital, the patient will follow up with primary care physician, Dr. Hawk as instructed. HOSPITAL COURSE: A 78-year-old female who was admitted by me on September 30, 2018. Please see my HPI for further details. The patient was having constipation, not able to pass any gas, and she was having increasing abdominal crampy pain. She was diagnosed with small bowel obstruction with CT abdomen and pelvis. She also had hiatal hernia. She was admitted to surgical floor. We treated her conservatively with NG tube with low intermittent suction. Small bowel x-ray showed high-grade obstruction. The patient did not improve with conservative measure and that is why General Surgery decided to do surgery. The patient underwent laparotomy with adhesiolysis and hiatal hernia repair. The patient required a pigtail drain placed and a G-tube placed. After surgery, the patient remained in surgical floor. Her hospital course was complicated by SVT which was resolved. We also transferred her to ICU overnight and subsequently transferred to telemetry floor and subsequently medical floor. She was keep complaining of abdominal discomfort and that is why upper GI with air contrast was done, which was unremarkable. Eventuality, the patient's GI function returned and she was able to pass gas as well as having bowel movement. She was doing very well. Her abnormal electrolytes were corrected while in hospital. She was treated with antibiotic therapy while in hospital. I have seen and examined the patient at bedside today. REVIEW OF SYSTEMS: All review of systems reviewed with her and negative, discussed with Dr. Hawk. PHYSICAL EXAMINATION: VITAL SIGNS: Currently temperature 97.6, pulse 73, respiratory rate 20, saturation 93%, blood pressure 138/76. Weight 195 pounds. GENERAL: The patient is currently alert and awake. No obvious acute distress. HEENT: Head; normocephalic, atraumatic. LUNGS: Clear without any rhonchi or rales. CARDIAC: S1 and S2 regular without any murmur. ABDOMEN: Soft. Bowel sounds present. Surgical site is clean and healthy. NEUROLOGIC: Nonfocal examination. Surgeon cleared her for discharge. Paperwork for discharge done and discharge medication reconciliation done. Total time spent on discharge day, 31 minutes. Job ID: [id number] MTDD
--- NOTE | 2018-10-10 11:10 | PDOC.PN ---
- Subjective Encounter Start Date: 10/10/18 Encounter Start Time: 08:30 Patient seen and examined. No new complaints. No overnight events - Objective Resuscitation Status - Order Detail: 09/30/18 07:12 Resuscitation Status Routine Resuscitation Status: FULL: Full Resuscitation MAR Reviewed: Yes Vital Signs & Weight: Vital Signs (12 hours) Temp Pulse Resp BP BP Pulse Ox 10/10/18 07:43 97.6 F 73 20 138/76 93 L 10/10/18 04:00 98 F 74 20 131/69 92 L 10/10/18 00:00 97.8 F 83 20 154/73 H 97 Weight Admit Weight 186 lb 15.936 oz Weight 195 lb 14.4 oz Most Recent Monitor Data Heart Rate from ECG 84 NIBP 123/55 NIBP BP-Mean 77 Respiration from ECG 20 SpO2 99 I&O: 10/09/18 10/10/18 10/11/18 06:59 06:59 06:59 Intake Total 1250 1346 Balance 1250 1346 Result Diagrams: 10/10/18 10:04 10/10/18 06:31 Phys Exam - Physical Examination Constitutional: NAD HEENT: PERRLA, moist MMs, sclera anicteric Neck: no JVD, supple Respiratory: no wheezing, no rales, no rhonchi Cardiovascular: RRR, no significant murmur, no rub Gastrointestinal: soft, non-tender, no distention, positive bowel sounds Musculoskeletal: no edema, pulses present Neurological: non-focal, normal sensation Lymphatic: no nodes Psychiatric: normal affect, A&O x 3 Skin: no rash, normal turgor Dx/Plan (1) SBO (small bowel obstruction) Code(s): K56.609 - UNSP INTESTNL OBST, UNSP TO PARTIAL VERSUS COMPLETE OBST Status: Acute Comment: s/p surgical repair (2) Diverticulosis of colon Code(s): K57.30 - DVRTCLOS OF LG INT W/O PERFORATION OR ABSCESS W/O BLEEDING Status: Chronic (3) Hiatal hernia Code(s): K44.9 - DIAPHRAGMATIC HERNIA WITHOUT OBSTRUCTION OR GANGRENE Status: Chronic Comment: s/p surgical repair (4) Obesity (BMI 30.0-34.9) Code(s): E66.9 - OBESITY, UNSPECIFIED Status: Chronic (5) Hypokalemia Code(s): E87.6 - HYPOKALEMIA Status: Acute (6) Hypomagnesemia Code(s): E83.42 - HYPOMAGNESEMIA Status: Acute (7) UTI (urinary tract infection) Status: Acute (8) Hypophosphatemia Code(s): E83.39 - OTHER DISORDERS OF PHOSPHORUS METABOLISM Status: Acute (9) SVT (supraventricular tachycardia) Code(s): I47.1 - SUPRAVENTRICULAR TACHYCARDIA Status: Resolved - Plan cont current plan of care, continue antibiotics, PT/OT, social services assistant * add levaquin PO for high wbc count * if bed available at rehab, stable for discharge * medication reviewed as below * symptomatic treatment. Review of Systems - Review of Systems ENT: negative: Ear Pain, Ear Discharge, Nose Pain, Nose Discharge, Nose Congestion, Mouth Pain, Mouth Swelling, Throat Pain, Throat Swelling, Other Respiratory: negative: Cough, Dry, Shortness of Breath, Hemoptysis, SOB with Excertion, Pleuritic Pain, Sputum, Wheezing Cardiovascular: negative: chest pain, palpitations, orthopnea, paroxysmal nocturnal dyspnea, edema, light headedness, other Gastrointestinal: negative: Nausea, Vomiting, Abdominal Pain, Diarrhea, Constipation, Melena, Hematochezia, Other Genitourinary: negative: Dysuria, Frequency, Incontinence, Hematuria, Retention , Other Musculoskeletal: negative: Neck Pain, Shoulder Pain, Arm Pain, Back Pain, Hand Pain, Leg Pain, Foot Pain, Other - Medications/Allergies Allergies/Adverse Reactions: Allergies Allergy/AdvReac Type Severity Reaction Status Date / Time codeine Allergy Severe Verified 05/14/17 16:21 Medications: Current Medications Acetaminophen (Tylenol) 1,000 mg PO Q6H [facility] Last Admin: 10/10/18 03:32 Dose: 1,000 mg Albuterol/Ipratropium (Duoneb) 3 ml NEB Q6H PRN PRN Reason: SOB &/or Wheezing Last Admin: 10/06/18 07:30 Dose: 3 ml Artificial Tears (Tears Naturale) 2 drop EA EYE PRN PRN PRN Reason: Dry Eyes Bisacodyl (Dulcolax) 10 mg OR DAILYPRN PRN PRN Reason: Constipation Enoxaparin Sodium (Lovenox) 40 mg SC 0900 [facility] Last Admin: 10/10/18 07:43 Dose: 40 mg Hydralazine HCl (Apresoline) 10 mg SLOW IVP Q4H PRN PRN Reason: SBP > 180 and HR < 70 Ibuprofen (Motrin) 600 mg PO Q8H PRN PRN Reason: Fever>101/(Mi/Mod/Sev) Pain Labetalol HCl (Normodyne) 20 mg SLOW IVP Q4H PRN PRN Reason: SBP > 180 and HR >/= 70 Melatonin (Melatonin) 3 mg PO HS PRN PRN Reason: Insomnia Last Admin: 10/05/18 22:33 Dose: 3 mg Mineral Oil/White Petrolatum (Eucerin Cream) 0 gm TOP BIDPRN PRN PRN Reason: Dry Skin Ondansetron HCl (Zofran Odt) 4 mg SL Q6H PRN PRN Reason: Nausea/Vomiting Last Admin: 10/08/18 08:53 Dose: 4 mg Ondansetron HCl (Zofran) 4 mg IVP Q6H PRN PRN Reason: Nausea/Vomiting Last Admin: 10/05/18 22:41 Dose: 4 mg Pantoprazole Sodium (Protonix) 40 mg PO DAILY [facility] Last Admin: 10/10/18 07:43 Dose: 40 mg Polyethylene Glycol (Miralax) 17 gm PO DAILY [facility] Last Admin: 10/10/18 07:44 Dose: Not Given Promethazine HCl (Phenergan) 25 mg IM/IV Q6H PRN PRN Reason: Nausea 2nd line Last Admin: 10/09/18 19:57 Dose: 25 mg Senna (Senokot) 1 tab PO BID [facility] Last Admin: 10/10/18 07:44 Dose: Not Given Sodium Chloride ([place] Nasal [place] 0.65%) 0 ml EA NARE QIDPRN PRN PRN Reason: Nasal Congestion Sodium Chloride (Flush - Normal Saline) 10 ml IVF Q12HR [facility] Last Admin: 10/10/18 07:44 Dose: 10 ml Sodium Chloride (Flush - Normal Saline) 10 ml IVF PRN PRN PRN Reason: Saline Flush Last Admin: 10/01/18 03:33 Dose: 10 ml Tramadol HCl (Ultram) 50 mg PO Q6H PRN PRN Reason: Moderate Pain (4-6) Tramadol HCl (Ultram) 100 mg PO Q6H PRN PRN Reason: Moderate to Severe Pain (6-10) Last Admin: 10/10/18 07:46 Dose: 100 mg
[2018-10-10 11:59] VITALS: BP 123/76; TEMP 97.4
--- NOTE | 2018-10-10 12:29 | PRG ---
DATE OF SERVICE: 10/10/2018 SUBJECTIVE: Ms. Gamble is a 78-year-old woman, who is postoperative day #9, status post exploratory laparotomy, plication of diaphragmatic crura to repair large hiatal hernia with gastropexy. The patient reports adequate pain control. She ambulates with minimum difficulty. She reports multiple bowel movements. She is tolerating general diet. She does; however, complain of profound fatigue, though improving. OBJECTIVE: VITAL SIGNS: This morning include blood pressure 122/76, pulse is 81, respiratory rate is 16, temperature is 97.4 degrees Fahrenheit, and oxygen saturation is 92% on room air. HEENT: Reveals normocephalic and atraumatic. NECK: She has no jugular venous distention noted. HEART: Reveals regular rate and rhythm. No murmurs or gallops auscultated. LUNGS: Clear to auscultation bilaterally. Her breathing, regular and nonlabored. ABDOMEN: Soft, nontender, and nondistended. Incision remains intact, clean, and dry. The gastrostomy site is intact. No significant drainage around the gastrostomy tube. NEUROLOGIC: Reveals no focal deficits present. LABORATORY DATA: Laboratory findings today includes a CBC with 14,600 white blood cells and hemoglobin and hematocrit 11.4 and 35.5 respectively. Platelet count is stable at 343,000. Differential count as follows; 74 segmented neutrophils, 9 bands, 6 lymphocytes, and 8 monocytes. Metabolic profile; sodium 139, potassium is 3.8, chloride is 106, bicarb is 27, BUN 9, creatinine 0.56, glucose is 93, magnesium 1.7, and phosphorus is 2.7. IMPRESSION: 1. Postoperative day #9 status post exploratory laparotomy with aforementioned operations. 2. Resolved ileus. 3. Worsening leukocytosis, otherwise no clinical evidence of active infection. PLAN: 1. Obtain a urinalysis as the patient was recently treated for E. coli urinary tract infection. She certainly is at risk for recurrent infection at this time. 2. There is no clinical evidence of either intraabdominal wound infections. 3. Once infectious etiology of the leukocytosis has been excluded, the patient is certainly stable for transfer to inpatient rehabilitation from surgical standpoint. She will follow up with me in the Surgery Clinic in 1 month. Job ID: [id number]
[2018-10-10 14:24] LABS: Bilirubin Moderate (Negative); Blood, Urine Small (Negative); Glucose, Urine (Dipstick) Negative (Negative); Leukocyte Small (Negative); Nitrite Negative (Negative); Protein, Urine (Dipstick) Trace mg/dL (Neg-Trace); Specific Gravity, Urine 1.025 (1.005-1.030)
[2018-10-10 14:25] LABS: Clarity HAZY (Clear)
[2018-10-10 14:26] LABS: Bacteria/HPF 1+ HPF (None Seen); Hyaline Casts/LPF NONE SEEN LPF (0-3 Hyaline); Urine Culture Reflex No No
== END 2018-10-10 14:10 | DRG 327 ==
LOC: ERS 18:07 → SJJU 09-30 00:25 → CCU 10-01 09:31 → SJJU 10-01 18:41 → CCU 10-04 08:34 → SURG A 10-05 11:54
PROVIDERS: ADMIT Family Medicine; ATTEND Family Medicine
PROC: 0BQT0ZZ Repair Diaphragm, Open Approach (ICD-10-PCS; principal; 2018-10-01)
PROC: 0DN80ZZ Release Small Intestine, Open Approach (ICD-10-PCS; 2018-10-01)
PROC: 0DS60ZZ Reposition Stomach, Open Approach (ICD-10-PCS; 2018-10-01)
PROC: 0W9B3ZZ Drainage of Left Pleural Cavity, Percutaneous Approach (ICD-10-PCS; 2018-10-06)
DX: K56.51 Intestinal adhesions [bands], with partial obstruction (principal); N39.0 Urinary tract infection, site not specified; I47.1 Supraventricular tachycardia; J90 Pleural effusion, not elsewhere classified; K44.9 Diaphragmatic hernia without obstruction or gangrene; K57.30 Diverticulosis of large intestine without perforation or abscess without bleeding; B96.20 Unspecified Escherichia coli [E. coli] as the cause of diseases classified elsewhere; K56.7 Ileus, unspecified; E87.6 Hypokalemia; E83.42 Hypomagnesemia; E66.9 Obesity, unspecified; Z68.30 Body mass index [BMI] 30.0-30.9, adult; Z87.19 Personal history of other diseases of the digestive system
CPT/HCPCS: 36415; 71045; 74022; 74177; 74241; 74250; 76942; 80048; 80053; 81001; 83690; 83735; 83880; 84100; 84439; 84443; 85025; 85610; 85730; 86850; 86900; 86901; 87070; 87077; 87086; 87186; 87205; 88112; 88305; 93005; 93010; 93306; 94640; 96365; 96366; 96375; C9113; J0131; J0694; J1100; J1650; J1885; J1940; J1956; J2001; J2270; J2370; J2405; J2550; J2704; J3010; J3475; J3490; J7050; J7620; P9045; Q0162; Q9963; Q9966

== ENCOUNTER 2018-12-09 11:49 | Inpatient (IN) | payer MEDICARE ==
--- NOTE | 2018-12-09 12:24 | CT ---
Head CT without contrast 12/09/2018: COMPARISON: 08/04/2017 HISTORY: Syncope with loss of consciousness TECHNIQUE: Axial CT imaging at 5 mm intervals from vertex through skull base without contrast FINDINGS: The visualized paranasal sinuses and mastoid air cells are well-aerated. There is no displa jean-pierre calvarial fracture seen. There is a focal area of posterior left parietal scalp swelling with no associated intracranial hemor rhage, midline shift, or mass effect. IMPRESSION: Posterior scalp swelling on the left with no associated fracture or intracranial hemorrha ge.
--- NOTE | 2018-12-09 12:28 | CT ---
CT cervical spine: 12/09/2018 COMPARISON: None HISTORY: Fall, trauma, pain TECHNIQUE: Axial CT imaging at 2.5 mm intervals from skull base through lung apices without contrast. Coronal and sagittal reformatted imaging obtained. FINDINGS: The occipital condyles, the dens, the C1-2 articulation, the craniocervical junction, the a tlantoaxial interspace, and the cervicothoracic junction demonstrate no acute findings. No prevertebral soft tissue swelling. Cervical vertebral body height and alignment appears normal. The imaged lung apices are unremarkable. Scattered atherosclerotic calcification of the carotid system noted bilaterally. There is no displaced fracture or evidence of dislocation seen within the cervical spine. IMPRESSION: No acute fracture or evidence of dislocation.
--- NOTE | 2018-12-09 12:32 | RAD ---
Portable frontal chest radiograph: 12/09/2018 COMPARISON: 10/09/2018 HISTORY: Syncope FINDINGS: Lungs are clear. Heart and mediastinal contours appear within normal limits. There is ather osclerotic calcification of the aortic arch. IMPRESSION: No acute findings.
[2018-12-09 12:38] LABS: Bilirubin Negative (Negative); Blood, Urine Negative (Negative); Clarity CLEAR (Clear); Glucose, Urine (Dipstick) Negative (Negative); Leukocyte Trace (Negative); Nitrite Negative (Negative); Protein, Urine (Dipstick) Negative (Neg-Trace); Specific Gravity, Urine 1.008 (1.002-1.036); Urobilinogen 0.2 mg/dL (0.2-1.0); pH, Urine 7.5 (5.0-9.0)
[2018-12-09 12:43] LABS: #Lymphocytes 1.2 thou/uL (1.20-3.40); #Monocytes 0.3 thou/uL (0.11-0.59); #Neutrophils 6.9 thou/uL (1.40-6.50); %Basophils 0.5 % (0.0-1.0); %Eosinophils 0.6 % (0.0-10.0); %Lymphocytes 14.3 % (21.0-51.0); %Monocytes 3.2 % (0.0-10.0); %Neutrophils 81.6 % (42.0-75.0); Mean Corpuscular Hemoglobin 28.8 pg (27.0-31.0); Mean Corpuscular Volume 87.2 fL (78.0-98.0); Mean Platelet Volume 10.1 fL (7.4-10.4); Platelet Count 243 thou/uL (130-400); RBC Distribution Width 12.5 % (11.5-14.5); Red Blood Cell (RBC) Count 4.85 mill/uL (4.20-5.40); White Blood Cell (WBC) Count 8.5 thou/uL (4.8-10.8)
[2018-12-09 12:44] LABS: Bacteria/HPF None Seen HPF (None Seen); Hyaline Casts/LPF 0-3 HYALINE CAST LPF (0-3 Hyaline); Pathc Cast-AUWi Flag 0.13 (0-2.49); RBC/HPF 0-3 HPF (0-3); Squamous Epithelial 0-3 HPF (0-3); WBC/HPF 0-3 HPF (0-3)
[2018-12-09] MEDS ORDERED: Acetaminophen 325 MG TAB ONE (12:55)
[2018-12-09 13:05] LABS: ALT (SGPT) 10 U/L (8-55); AST (SGOT) 12 U/L (5-34); Albumin 4.2 g/dL (3.4-4.8); Alkaline Phosphatase 90 U/L (40-150); Anion Gap 13 mmol/L (10-20); BUN (Urea Nitrogen) 9 mg/dL (9.8-20.1); Bilirubin, Total 0.6 mg/dL (0.2-1.2); CK (CPK) 22 U/L (29-168); Calc. Creatinine Clearance 0 mL/min (70-130); Calcium 10.4 mg/dL (7.8-10.44); Carbon Dioxide 27 mmol/L (23-31); Chloride 105 mmol/L (98-107); Estimated GFR-MDRD 76; Globulin 2.4 g/dL (2.4-3.5); Glucose 111 mg/dL (83-110); Lipase Less than 4 U/L (8-78); Potassium 4.2 mmol/L (3.5-5.1); Protein, Total 6.6 g/dL (6.0-8.3); Sodium 141 mmol/L (136-145)
[2018-12-09] MEDS ORDERED: Meclizine HCl 25 MG TAB ONE (13:48)
[2018-12-09 15:56] LABS: Troponin I Less than 0.010 ng/mL (< 0.028)
[2018-12-09 16:42] LABS: Lactic Acid 0.7 mmol/L (0.5-2.2)
[2018-12-09] MEDS ORDERED: Ondansetron PF 4 MG/2 ML Vial IVP PRN (17:26)
[2018-12-09] MEDS ORDERED: HYDROcodone/Acetaminophen 5/325 mg Tablet PO PRN (17:26)
[2018-12-09 18:48] LABS: Troponin I Less than 0.010 ng/mL (< 0.028)
[2018-12-09] MEDS: Sodium Chloride 0.9% 1,000 ML IV SCH (20:10)
[2018-12-09] MEDS: Meclizine HCl 25 MG TAB PO SCH (21:46)
[2018-12-09 22:24] VITALS: BMI 29.1
--- NOTE | 2018-12-10 00:34 | HP ---
HISTORY OF PRESENT ILLNESS: This is a 78-year-old white female who presents with near syncope. The patient has a long history of vertigo beginning years ago, occurring off and on. The patient had a busy day on Wednesday, 3 days prior. She was at the dental office receiving a cleaning. She also went to the eye doctor and had her eyes dilated. She states her cataracts have gotten worsen and is in need of new glasses. Wednesday morning, she awoke with dizziness, worse with movement, did gradually became worse over the next day to 2. This morning, she got up, she was preparing breakfast and she suddenly became dizzy and she was attempting to maintain her composure. However, she reached for the counters and fell and hit her head on the counter top. She was in significant pain and laid on the floor. She said for about an hour before she reached over and called her to bring her to the hospital. She had some nausea and vomiting. She was seen in the ER and given fluids, and at this time is still quite dizzy, but feeling somewhat better. She is unable to sit up or stand at this time however. No complaints of any cough, congestion, fever, abdominal pain, leg swelling, etc. No complaints of any headache. Simply complains of pain from the bump on her head. PAST MEDICAL HISTORY: Hypertension, history of anemia, history of diverticulitis. PAST SURGICAL HISTORY: Surgeries include knee arthroscopy in 2004, hysterectomy, cholecystectomy, small bowel obstruction in September 2018 with temporary ileostomy with reversal, had a hiatal hernia repair also September of 2018. FAMILY HISTORY: Two siblings with heart disease. SOCIAL HISTORY: She is . They have no children. She does not smoke or drink. 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 MEDICATIONS: Omeprazole 20 daily. ALLERGIES: CODEINE. REVIEW OF SYSTEMS: As above. ASSESSMENT: 1. Near syncope. 2. Intractable dizziness. 3. Vertigo. 4. Nausea and vomiting. 5. Hypertension. 6. Hyperlipidemia. PHYSICAL EXAMINATION: VITAL SIGNS: Stable and afebrile at this time. GENERAL: The patient is quite dizzy with minimal movement. HEENT: Pupils are equal and reactive to light. Extraocular movements intact. TM, nose, throat relatively clear. She does appear to have some horizontal nystagmus. NECK: Supple. HEART: Regular rate and rhythm without murmur. LUNGS: Clear. ABDOMEN: Soft and nontender. EXTREMITIES: No edema. LABORATORY DATA: White count 8.5, H and H 14 and 42. Sodium 141, potassium 4.2, creatinine 0.74, BUN 9, glucose 111. Troponin 1 less than 0.010 x2. Lipase less than 4. UA negative. Cervical spine CT, no acute fracture or dislocation. Chest x-ray negative. Brain CT posterior scalp swelling on the left with no fracture or intracranial hemorrhage. ASSESSMENT: 1. Near-syncope with fall. 2. Occipital hematoma. 3. Intractable nausea. 4. Benign positional vertigo. 5. Hypertension. 6. Hyperlipidemia. PLAN: 1. Ice to scalp. 2. Antivert 25 at bedtime. 3. Hydrate normal saline at 75 mL/h. 4. Hopefully, can slowly progress her activity and hopefully discharge in the a.m. 5. We will provide Antivert 25 q.8. 6. We will plan to refer to the ENT on an outpatient basis. Job ID: [id number]
[2018-12-10] MEDS: Meclizine HCl 25 MG TAB PO SCH ×2 (05:27→13:22)
[2018-12-10] MEDS: Sodium Chloride 0.9% 1,000 ML IV SCH (05:31)
[2018-12-10 05:42] LABS: #Eosinphils 0.2 thou/uL (0.0-0.7); #Lymphocytes 1.5 thou/uL (1.20-3.40); #Monocytes 0.4 thou/uL (0.11-0.59); #Neutrophils 2.8 thou/uL (1.40-6.50); %Basophils 0.8 % (0.0-1.0); %Eosinophils 3.7 % (0.0-10.0); %Lymphocytes 31.3 % (21.0-51.0); %Monocytes 7.5 % (0.0-10.0); %Neutrophils 56.7 % (42.0-75.0); Hemoglobin 12.4 g/dL (12.0-16.0); Mean Corpuscular HGB CONC 31.7 g/dL (32.0-36.0); Mean Corpuscular Hemoglobin 27.9 pg (27.0-31.0); Mean Corpuscular Volume 88.2 fL (78.0-98.0); Mean Platelet Volume 10.6 fL (7.4-10.4); Platelet Count 231 thou/uL (130-400); RBC Distribution Width 12.5 % (11.5-14.5); Red Blood Cell (RBC) Count 4.45 mill/uL (4.20-5.40); White Blood Cell (WBC) Count 4.9 thou/uL (4.8-10.8)
[2018-12-10 06:04] LABS: Anion Gap 8 mmol/L (10-20); BUN (Urea Nitrogen) 8 mg/dL (9.8-20.1); Calc. Creatinine Clearance 89 mL/min (70-130); Calcium 9.5 mg/dL (7.8-10.44); Carbon Dioxide 29 mmol/L (23-31); Chloride 107 mmol/L (98-107); Estimated GFR-MDRD 85; Glucose 79 mg/dL (83-110); Potassium 3.5 mmol/L (3.5-5.1); Sodium 140 mmol/L (136-145)
[2018-12-10] MEDS: Acetaminophen 325 MG TAB PO PRN ×2 (08:27→16:53)
[2018-12-10] MEDS ORDERED: Enoxaparin Sodium 40 MG/0.4 ML SYRINGE SC SCH (09:00)
[2018-12-10] MEDS ORDERED: Sodium Chloride 0.9% 1,000 ML IV SCH (09:10)
--- NOTE | 2018-12-10 14:37 | EKG ---
Test Reason : SYNCOPY Blood Pressure : / mmHG Vent. Rate : 097 BPM Atrial Rate : 097 BPM P-R Int : 202 ms QRS Dur : 064 ms QT Int : 348 ms P-R-T Axes : 077 -05 004 degrees QTc Int : 441 ms Normal sinus rhythm Anterior infarct , age undetermined Abnormal ECG Confirmed by MARIA GUADALUPE OLIVEIRA D.O. ([id number]), telegraph editor RODRÍGUEZ IRVING ([id number]) on 12/10/2018 2:37:07 PM Referred By: Confirmed By:MARIA GUADALUPE OLIVEIRA D.O.
[2018-12-10 15:53] VITALS: BP 146/74; TEMP 98.1
--- NOTE | 2018-12-10 15:59 | CON ---
DATE OF CONSULTATION: 12/10/2018 SUBJECTIVE: The patient this morning still with significant dizziness, unable to ambulate. Last night, she had periods of feeling better, but her ways of nausea returned. Still has dizziness and is cautious about walking. OBJECTIVE: VITAL SIGNS: Temperature 98.3, pulse 73, respiration 18, pulse ox 93%, and blood pressure 159/73. HEART: Regular rate and rhythm. LUNGS: Clear. ABDOMEN: Soft. LABORATORY DATA: White count 4.9, hemoglobin and hematocrit of 12 and 39. Electrolytes normal. Creatinine 0.67 and BUN 8. ASSESSMENT: 1. Intractable nausea and dizziness. 2. Benign positional vertigo. 3. Hypertension. 4. Hyperlipidemia. 5. Occipital hematoma. PLAN: 1. PT evaluation. 2. Decrease IV fluids to 50 mL/h. 3. Continue Antivert. 4. Hopefully, we can discharge the patient this evening or tomorrow morning if the patient is able to ambulate in the hallway. Job ID: [id number]
== END 2018-12-10 18:05 | disposition home or self-care (01) | DRG 149 ==
LOC: ERS 11:49 → 2NO 18:37
PROVIDERS: ADMIT Family Medicine; ATTEND Family Medicine
DX: H81.10 Benign paroxysmal vertigo, unspecified ear (principal); I10 Essential (primary) hypertension; E78.5 Hyperlipidemia, unspecified; R11.2 Nausea with vomiting, unspecified; S00.03XA Contusion of scalp, initial encounter; X58.XXXA Exposure to other specified factors, initial encounter
CPT/HCPCS: 36415; 70450; 71045; 72125; 80048; 80053; 81003; 81015; 82550; 83605; 83690; 84484; 85025; 86850; 86900; 86901; 93005; 94760; J1650; J8499

== ENCOUNTER 2020-07-31 08:40 | Emergency (ER) | payer MEDICARE ==
[2020-07-31] MEDS ORDERED: Ondansetron PF 4 MG/2 ML Vial ONE (09:07)
[2020-07-31] MEDS ORDERED: Morphine 4 MG/ML VIAL ONE (09:07)
[2020-07-31 09:16] LABS: #Basophils 0.1 thou/uL (0.0-0.2); #Eosinphils 0.1 thou/uL (0.0-0.7); #Lymphocytes 1.6 thou/uL (1.20-3.40); #Monocytes 0.7 thou/uL (0.11-0.59); #Neutrophils 9.3 thou/uL (1.40-6.50); %Basophils 0.6 % (0.0-1.0); %Lymphocytes 13.4 % (21.0-51.0); %Monocytes 6.2 % (0.0-10.0); %Neutrophils 78.8 % (42.0-75.0); Hemoglobin 13.3 g/dL (12.0-16.0); Mean Corpuscular Hemoglobin 28.9 pg (27.0-31.0); Mean Corpuscular Volume 90.1 fL (78.0-98.0); Mean Platelet Volume 9.8 fL (7.4-10.4); Platelet Count 290 thou/uL (130-400); White Blood Cell (WBC) Count 11.8 thou/uL (4.8-10.8)
[2020-07-31 09:40] LABS: ALT (SGPT) 23 U/L (8-55); AST (SGOT) 15 U/L (5-34); Alkaline Phosphatase 110 U/L (40-110); Anion Gap 16 mmol/L (10-20); BUN (Urea Nitrogen) 9 mg/dL (9.8-20.1); Bilirubin, Total 0.5 mg/dL (0.2-1.2); Calc. Creatinine Clearance 0 mL/min (70-130); Calcium 9.9 mg/dL (7.8-10.44); Carbon Dioxide 25 mmol/L (23-31); Chloride 103 mmol/L (98-107); Globulin 3.4 g/dL (2.4-3.5); Glucose 115 mg/dL (83-110); Potassium 4.2 mmol/L (3.5-5.1); Protein, Total 7.4 g/dL (6.0-8.3); Sodium 140 mmol/L (136-145)
--- NOTE | 2020-07-31 10:33 | CT ---
EXAM: CT Abdomen Pelvis W Con PROVIDED CLINICAL HISTORY: Abdominal pain COMPARISON: 10/12/2018 FINDINGS: The visualized lung bases are free of significant opacity. The liver, spleen, pancreas, kidneys and adrenal glands appear unremarkable. There is focal mural thickening involving the distal sigmoid colon with numerous diverticula involvin g the sigmoid colon also demonstrated. There is fat stranding and noncircumscribed fluid density seen about this mural thickening. There is no evidence for extraluminal gas or focal fluid collection . There is no evidence for bowel obstruction. No evidence for free air. Atherosclerotic vascular calcifications are noted. The osseous structures demonstrate no concerning lytic or blastic lesions. IMPRESSION: Uncomplicated sigmoid diverticulitis.
[2020-07-31 11:20] LABS: Bilirubin Negative (Negative); Blood, Urine Negative (Negative); Clarity Clear (Clear); Glucose, Urine (Dipstick) Normal (Negative); Ketone, Urine Negative (Negative); Leukocyte Negative Leu/uL (Negative); Nitrite Negative (Negative); Protein, Urine (Dipstick) Negative (Neg-Trace); Specific Gravity, Urine 1.039 (1.002-1.036); Urobilinogen Normal mg/dL (Less than 2); pH, Urine 6.5 (5.0-9.0)
[2020-07-31] MEDS ORDERED: Iopamidol-370 76% 500 ML 1 ML ONE (13:07)
== END 2020-07-31 11:59 | disposition home or self-care (01) ==
LOC: ERS 08:40
DX: K57.32 Diverticulitis of large intestine without perforation or abscess without bleeding (principal); D64.9 Anemia, unspecified
CPT/HCPCS: 74177; 80053; 81003; 85025; 96374; 96375; J2270; J2405; Q9967